=== PATIENT | male | born 1950 | race Caucasian/White ===

== ENCOUNTER → 2023-09-25 10:50 | Outpatient (REF) | payer OTHER, SELFPAY | LOC: PAVMRI 10:50 | PROVIDERS: ATTENDING PHYSICIAN Physical Medicine & Rehabilitation; FAMILY PHYSICIAN Nurse Practitioner | DX: M48.061 Spinal stenosis, lumbar region without neurogenic claudication (principal); Z98.890 Other specified postprocedural states; M51.26 Other intervertebral disc displacement, lumbar region | CPT/HCPCS: 72148 ==

== ENCOUNTER → 2023-11-06 15:48 | Outpatient (REF) | payer OTHER, SELFPAY | LOC: WDC 15:48 | PROVIDERS: ATTENDING PHYSICIAN Internal Medicine Hematology & Oncology; FAMILY PHYSICIAN Nurse Practitioner | DX: Z12.31 Encounter for screening mammogram for malignant neoplasm of breast (principal) | CPT/HCPCS: 77063; 77067 ==

== ENCOUNTER → 2023-12-11 06:39 | Outpatient (REF) | payer OTHER, SELFPAY ==
[2023-12-11 09:04] LABS: ALT (SGPT) 12 U/L (0-50); AST (SGOT) 20 U/L (17-59); Albumin 4.1 g/dl (3.5-5.0); Alkaline Phosphatase 101 U/L (38-126); Blood Urea Nitrogen 14 mg/dl (9-20); Calcium 9.3 mg/dl (8.4-10.2); Carbon Dioxide 27 mmol/L (22-30); Chloride 107 mmol/L (98-107); Glucose 110 mg/dl (70-99); HDL Cholesterol 41 mg/dl; LDL Cholesterol, Calculated 97 mg/dl; Phosphorus 3.6 mg/dl (2.5-4.5); Potassium 4.5 mmol/L (3.5-5.1); Sodium 138 mmol/L (135-145); Total Bilirubin 1.1 mg/dl (0.2-1.3); Total Cholesterol 159 mg/dl (50-199); Total Protein 6.9 g/dl (6.3-8.2); Triglyceride 108 mg/dl (10-149); Very Low Density Lipoprotein 21 mg/dl (0-30); eGFR > 60.00
[2023-12-11 09:41] LABS: TSH Reflex To Free T4 0.21 uIU/ml (0.47-4.68)
[2023-12-11 10:56] LABS: Free T4 1.51 ng/dl (0.78-2.19)
[2023-12-12 08:42] LABS: Intact PTH 106.2 pg/ml (13.6-85.8)
== END ==
LOC: REG 06:39
PROVIDERS: ATTENDING PHYSICIAN Specialist; FAMILY PHYSICIAN Nurse Practitioner
DX: Z00.01 Encounter for general adult medical examination with abnormal findings (principal); I10 Essential (primary) hypertension; I65.23 Occlusion and stenosis of bilateral carotid arteries; N40.0 Benign prostatic hyperplasia without lower urinary tract symptoms; N18.32 Chronic kidney disease, stage 3b; N25.81 Secondary hyperparathyroidism of renal origin
CPT/HCPCS: 36415; 80053; 80061; 83970; 84100; 84439; 84443; G0103

== ENCOUNTER → 2024-02-06 07:34 | Outpatient (REF) | payer OTHER, SELFPAY | LOC: RAD 07:34 | PROVIDERS: ATTENDING PHYSICIAN Nurse Practitioner | DX: I65.23 Occlusion and stenosis of bilateral carotid arteries (principal) | CPT/HCPCS: 93880 ==

== ENCOUNTER → 2024-04-12 09:58 | Outpatient (REF) | payer OTHER, SELFPAY | LOC: HWRCS 09:58 | PROVIDERS: ATTENDING PHYSICIAN Nurse Practitioner | DX: R60.0 Localized edema (principal) | CPT/HCPCS: 93306 ==

== ENCOUNTER 2024-05-27 22:09 | Inpatient (IN) | payer OTHER, MEDICARE, SELFPAY ==
[2024-05-27] VITALS (35 sets, daily range): BP systolic 144–244; BP diastolic 70–208
--- NOTE | 2024-05-27 16:33 | ED.GENMED ---
ED Provider Triage
<Rakesh Niño PA-C - Last Filed: 05/27/24 17:05>
-
Patient seen by provider in Triage?: Seen in Triage
73-year-old male with history of hypertension presents with who states sometimes during the evening last night the patient started to be confused. He was walking around the house not knowing what he was doing. He was unaware of the day of the
week which he is typically very sharp. The noted no slurred speech or droop. He has not had his blood pressure medication today
On brief exam there is no facial droop or slurred speech. He is ambulatory. He is noted to be hypertensive at triage with blood 230s over 140s. CT of the head EKG and labs ordered as well as urinalysis. Requested him to be seen next given
confusion and elevated BP.
update: I was asked to go into the bathroom with the patient was sent to give a urine sample. He was standing there for 15 minutes. I realized there was already urine in the toilet and he was still holding the cup in his hand. He seemed
confused. Requested again for the patient to be placed in room.
History of Present Illness
<Rakesh Niño PA-C - Last Filed: 05/27/24 17:05>
General
Chief Complaint: Change in Mental Status
Time Seen by Provider: 05/27/24 17:41
<Deshaun London MD - Last Filed: 05/27/24 20:13>
General
Source: patient and spouse
Exam Limitations: none
Nursing documentation reviewed up to this point in time: agreed with
History of Present Illness
History of Present Illness:
73-year-old male with a past medical history of hypertension, GERD, chronic low back pain who presents to the emergency department with his for evaluation of confusion. Patient is confused on arrival and somewhat limited as a historian�when
asked why he is here he was not able to tell me, said 'I do not know.' His says that for at least the past 24 hours he has been 'more lethargic.' She says that yesterday evening in particular seems to be moving slowly and was confused about a
few things. This morning patient was still a bit sluggish, was complaining of nausea and had episode of vomiting. Confusion seem to be a bit better, offered to take him to the hospital but he initially declined. As the day went on she
noticed that he became increasingly confused particular at around 3 PM when he seemed to be wandering around the house, was confused about the day of the week. She brought him to the emergency room to be assessed. He was noted to be hypertensive
in triage, did not take his normal blood pressure medicine this morning. When asked about why he is here patient could not tell me but when specifically asked on review of systems he denies any headache, neck pain. Denies any chest pain. He does
complain of some nausea and mild abdominal discomfort. Did have an episode of vomiting this morning as above. No diarrhea. No urinary symptoms reported. Denies feeling focal weak or numb but does complain of feeling generalized weakness. Denies
any loss of vision. He does says that he feels like he is having some trouble speaking.
Past History
<Rakesh Niño PA-C - Last Filed: 05/27/24 17:05>
Past History
ED Past Medical History: Cancer (Left breast cancer), GERD, HTN, Other (Sigmoid diverticulitis March 2022; chronic low back pain/lumbar DDD, narcotic dependent) and Other (BPH; prior history of pain med addiction)
ED Past Surgical History: Cholecystectomy, Orthopedic, Urological (TURP December 2019) and Other (Mastectomy-left)
Social History
Tobacco: Former smoker
Alcohol: None
Drug: Former user
Personal:
Living: with family
Employment: Retired
Family History
Family History: Other (Noncontributory)
Review of Systems
<Deshaun London MD - Last Filed: 05/27/24 20:13>
Review of Systems
All Other Systems: ROS reviewed and negative except as documented in HPI and ROS
Constitutional: Denies fever
Respiratory: Denies trouble breathing
Cardiac: Denies chest pain
ABD/GI: Reports abdominal pain, nausea and vomiting; Denies diarrhea
: Denies dysuria or flank pain
Musculoskeletal: Reports back pain (Chronic); Denies neck pain
Neurological: Reports other (Confused; speech difficulties); Denies dizzy or headache
Phy Exam
<Deshaun London MD - Last Filed: 05/27/24 20:13>
Physical Exam
Physical Exam:
General: Sitting in bed awake and alert, oriented to person and place but not time or situation
Head: Normocephalic, atraumatic
Eyes: Conjunctiva normal, EOMI, pupils equal round and reactive to light bilaterally, visual vicente are intact
Throat: Airway intact, handling secretions
Neck: Trachea midline, supple without meningismus
Lungs: Clear to auscultation bilaterally, no wheezing, rales, rhonchi
Heart: Regular rate and rhythm, no murmurs, gallops, or rubs
Abd: Soft, non distended, very mild diffuse tenderness no peritoneal signs or masses
Neuro: Cranial nerves intact 2 through 12, speech fluid no dysarthria, no expressive aphasia, motor and sensory function intact and symmetric upper and lower extremities
Skin: no rash
Extremities: No edema in extremities, equal pulses in all extremities
Scores
<Deshaun London MD - Last Filed: 05/27/24 20:13>
NIH Stroke Score
Level of Consciousness: 0 - Alert
LOC Questions: 1-Answers one correctly
LOC Commands: 0-Performs both correctly
Best Horizontal Gaze: 0-Normal
Visual Vicente: 0=Normal, no visual loss
Facial Palsy: 0=Normal, symmetrical
Motor - Right Arm: 0=No drift 10 seconds
Motor - Left Arm: 0=No drift 10 seconds
Motor - Right Le-No drift 5 seconds
Motor - Left Le-No drift 5 seconds
Limb Ataxia: 0-Absent
Sensation: 0-Normal
Best Language: 0-No aphasia
Dysarthria: 0-Normal
Extinction and Inattention: 0-No abnormality
Total Score:: 1
Thrombolytic Contraindication
Inclusion and Exclusion criteria reviewed: Yes
Reasons for NON-Tx with Thrombolytics ABSOLUTE Exclusions: Greater than 4.5 hrs from onset of sxs
Heart Failure Risk
Heart Failure Risk Score: Not Applicable
Heart Score for Chest Pain Patients
STEMI patient?: Not applicable
Withdrawal Assessment of Alcohol
Withdrawal Assessment Completed?: Not applicable
Course
<Rakesh Niño PA-C - Last Filed: 05/27/24 17:05>
Orders/Labs/Results
Orders:
Orders
05/27/24 16:30
Electrocardiogram (*1) Urgent
Reason for Study: TIA/Stroke
CT HEAD STROKE ALERT W/o Cont Urgent
Reason For Exam: elevated BP, confusion
EKG- Treatment ONCE
05/27/24 17:36
Complete Blood Count/With Diff Urgent
Comprehensive Metabolic Panel Urgent
05/27/24 17:51
CT Abd/pelvis Wo Iv Cont Urgent
Reason For Exam: abd pain, confused, N/V
05/27/24 17:52
Labetalol HCl [Trandate] 10 mg IV NOW STA
05/27/24 19:17
Aspirin 325 mg PO NOW STA
Labetalol HCl [Trandate] 10 mg IV NOW STA
05/27/24 19:49
Urinalysis Reflex To Culture Urgent
Date Specimen was Collected: 05/27/24
Time Specimen was Collected: 16:36
05/27/24 20:10
Nicardipine INF (STD CONC-40 mg/200 mL) NOW x 1 BAG Nicardipine 40 mg/200 ml [Cardene] 40 mg in 200 ml IV NOW
Initial dose in mg/hr, then titrate:: 5
Titrate to keep:: SBP 140 - 160 mmHg
Titrate by mg/hr:: 2.5 mg/hr
Frequency of titrations (minutes):: 5-15 minutes
Maximum dose in mg/hr:: 15
Begin to taper infusion when:: Remained at goal for 2hrs
Taper by mg/hr:: 2.5 mg/hr
Frequency of taper (minutes) if patient maintains goal:: 15-30 minutes
Taper to off?: Yes
If infusion off & no longer maintaining goal:: Contact Provider
Abnormal Lab Results
05/27/24 05/27/24
17:33 17:36
MCH 31.9 H pg
(27.0-31.0)
Absolute Lymphs (auto) 0.8 L 10^3/uL
(1.2-3.4)
Absolute Monos (auto) 0.7 H 10^3/uL
(0.1-0.6)
Lymphocytes % 12.8 L %
(20.5-51.1)
Monocytes % 11.3 H %
(1.7-9.3)
Glucose 109 H mg/dl
(70-99)
Total Bilirubin 2.8 H mg/dl
(0.2-1.3)
POC Glucose 111 H mg/dl
(70-99)
05/27/24 17:36
05/27/24 17:36
Vital Signs
Initial and Last Documented VS:
Initial Vital Signs
Temp Pulse Resp BP Pulse Ox
36.6 C 98 16 244/136 97
05/27/24 16:27 05/27/24 16:27 05/27/24 16:27 05/27/24 16:27 05/27/24 16:27
Last Documented Vital Signs
Temp Pulse Resp BP Pulse Ox
36.6 C 85 18 151/70 97
05/27/24 16:27 05/27/24 19:34 05/27/24 19:34 05/27/24 19:34 05/27/24 19:34
<Deshaun London MD - Last Filed: 05/27/24 20:13>
Orders/Labs/Results
Orders:
Orders
05/27/24 16:30
Electrocardiogram (*1) Urgent
Reason for Study: TIA/Stroke
CT HEAD STROKE ALERT W/o Cont Urgent
Reason For Exam: elevated BP, confusion
EKG- Treatment ONCE
05/27/24 17:36
Complete Blood Count/With Diff Urgent
Comprehensive Metabolic Panel Urgent
05/27/24 17:51
CT Abd/pelvis Wo Iv Cont Urgent
Reason For Exam: abd pain, confused, N/V
05/27/24 17:52
Labetalol HCl [Trandate] 10 mg IV NOW STA
05/27/24 19:17
Aspirin 325 mg PO NOW STA
Labetalol HCl [Trandate] 10 mg IV NOW STA
05/27/24 19:49
Urinalysis Reflex To Culture Urgent
Date Specimen was Collected: 05/27/24
Time Specimen was Collected: 16:36
05/27/24 20:10
Nicardipine INF (STD CONC-40 mg/200 mL) NOW x 1 BAG Nicardipine 40 mg/200 ml [Cardene] 40 mg in 200 ml IV NOW
Initial dose in mg/hr, then titrate:: 5
Titrate to keep:: SBP 140 - 160 mmHg
Titrate by mg/hr:: 2.5 mg/hr
Frequency of titrations (minutes):: 5-15 minutes
Maximum dose in mg/hr:: 15
Begin to taper infusion when:: Remained at goal for 2hrs
Taper by mg/hr:: 2.5 mg/hr
Frequency of taper (minutes) if patient maintains goal:: 15-30 minutes
Taper to off?: Yes
If infusion off & no longer maintaining goal:: Contact Provider
Abnormal Lab Results
05/27/24 05/27/24
17:33 17:36
MCH 31.9 H pg
(27.0-31.0)
Absolute Lymphs (auto) 0.8 L 10^3/uL
(1.2-3.4)
Absolute Monos (auto) 0.7 H 10^3/uL
(0.1-0.6)
Lymphocytes % 12.8 L %
(20.5-51.1)
Monocytes % 11.3 H %
(1.7-9.3)
Glucose 109 H mg/dl
(70-99)
Total Bilirubin 2.8 H mg/dl
(0.2-1.3)
POC Glucose 111 H mg/dl
(70-99)
05/27/24 17:36
05/27/24 17:36
Vital Signs
Initial and Last Documented VS:
Initial Vital Signs
Temp Pulse Resp BP Pulse Ox
36.6 C 98 16 244/136 97
05/27/24 16:27 05/27/24 16:27 05/27/24 16:27 05/27/24 16:27 05/27/24 16:27
Last Documented Vital Signs
Temp Pulse Resp BP Pulse Ox
36.6 C 85 18 151/70 97
05/27/24 16:27 05/27/24 19:34 05/27/24 19:34 05/27/24 19:34 05/27/24 19:34
<Deshaun London MD - Last Filed: 05/27/24 20:13>
MDM/Problems Addressed
Differential Diagnosis Includes:
Stroke (ischemic/hemorrhagic), hypertensive crisis, brain mass, TME related to infection such as pneumonia or intra-abdominal infection or UTI
MDM/Problems Addressed:
73-year-old male presents to the emergency room for evaluation of lethargy and nausea over the past 24 hours and increasing confusion became significantly worse around 3 PM today. Hypertensive but otherwise normal vitals. Physical exam as above.
During my initial assessment I did call a stroke alert, patient to be taken for CT head. Will also send for CT abdomen pelvis. Labs sent off in triage including a CBC and a CMP�CBC shows no clinically significant abnormalities, CMP shows elevated
T. bili but normal LFTs otherwise. Urinalysis is pending. Check an EKG. Provide labetalol for severe hypertension.
CT reviewed by me in real-time no hemorrhage noted. Case discussed with neurology at bedside�suspect this could be hypertensive encephalopathy, lower suspicion for stroke. Recommended treating with aspirin, no TNK. Will obviously require
admission. Will continue to monitor pending rest of workup to evaluate for alternate etiology such as infection.
CT abdomen pelvis negative for any acute pathology. Urinalysis pending but no urinary symptoms, fever, leukocytosis suggest that this is the etiology of his confusion. At this point suspect small subacute stroke versus hypertensive crisis. Blood
pressure still elevated will repeat labetalol.
Blood pressure not improving after second labetalol push. Will start on Cardene infusion. Case discussed with hospitalist for admission.
Chronic conditions affecting care:
Hypertension
Acute Exacerbation and/or Progression of Chronic Illness:
Acutely hypertensive treated with labetalol
Acute Exacerbation and/or Progression of Chronic Illness: HTN
<Deshaun London MD - Last Filed: 05/27/24 20:13>
*Radiology
Radiology exam reviewed: preliminary read by ED provider and radiology read reviewed
*Pulse Oximetry
Patient hypoxic: no
*EKG
Interpreted by ED Provider?: Yes
Heart Rate: 84
Rate: normal
Rhythm: sinus and PAC's
[place]: normal axis
Interval: normal interval
QRS Pattern: normal QRS
Ischemia: no ischemia
*Critical Care Note
Total Time (30-74mins, 75-104mins- exclusive of procedures): 35
comment:
Critical care statement: A total of 35 minutes of critical care time was provided for this patient. This includes management of unstable vital signs, evaluation of the patient at bedside, frequent reassessment, discussion with
consultants/hospitalist, and review of pertinent medical records. This time was separate from time utilized to perform any aforementioned documented procedures
Data Reviewed
Review of Other/Old Records Reveals: Labs and Records
Source: patient and spouse
<Deshaun London MD - Last Filed: 05/27/24 20:13>
Patient Management
Discussion with other providers: Hospitalist (Discussed with hospitalist), Chief Engineer Waterworks (Discussed with neurologist) and Radiologist (Discussed with radiology)
Escalation/DeEscalation of care consider admission/obs:
Admission indicated
ED Attending Note
<Rakesh Niño PA-C - Last Filed: 05/27/24 17:05>
-
Portions of this chart may have been created with voice recognition software.� Occasional wrong word or��sound alike� substitutions may have occurred due to the inherent limitations of voice recognition software.
Discharge Plan
Departure
Patient Disposition: Admit
Date of Disposition: 05/27/24
Time of Disposition: 20:13
Admit to doctor: Vanna
Presentation/result/management discussed w/ accepting MD/DO: Hospitalist
Discharge Problem:
CVA (cerebrovascular accident), Hypertensive crisis
Prescriptions:
No Action
amlodipine 10 MG tablet
10 mg PO DAILY Qty: 1 0RF
Rx Instructions:
Hold if systolic blood pressure <130 while on Valium and Dilaudid.
terazosin 5 mg capsule
5 mg PO HS
valsartan 320 mg tablet
320 mg PO DAILY
calcitriol 0.25 mcg capsule
0.25 mcg PO .3X WEEKLY
buprenorphine 15 mcg/hour patch weekly
15 mcg topical WE
gabapentin 300 MG capsule
300 mg PO TIDPRN PRN (Reason: neuropathy)
omeprazole 20 MG capsule,delayed release(DR/EC)
20 mg PO DAILYPRN PRN (Reason: gi upset)
Referrals:
Peter Carr CRNP [Family Provider] -
Interventions
Interventions:
*Risk Screen - Suicide Last Done: 05/27/24 16:29
*General Assessment Last Done: 05/27/24 16:29
*Neglect/Abuse Screening Last Done: 05/27/24 16:29
*ED COVID-19 Vaccine History Last Done: 05/27/24 16:29
ED- Neurological Assessment Last Done: 05/27/24 17:28
Discharge Date and Time
Print Language: INDONESIAN
[2024-05-27 17:35] LABS: Glucose - Point of Care 111 mg/dl (70-99)
[2024-05-27 17:46] LABS: % Basophils 0.3 % (0-2); % Eosinophils 0.8 % (0-6); % Immature Granulocytes 0.3 % (0-0.5); % Lymphocytes 12.8 % (20.5-51.1); % Monocytes 11.3 % (1.7-9.3); % Neutrophils 74.5 % (42.2-75.2); Absolute Eosinophils 0.1 10^3/uL (0-0.7); Absolute Lymphocytes 0.8 10^3/uL (1.2-3.4); Absolute Monocytes 0.7 10^3/uL (0.1-0.6); Absolute Neutrophils 4.9 10^3/uL (1.4-6.5); Hematocrit 42.7 % (39.0-52.0); Hemoglobin 15.4 g/dL (13.0-18.0); Mean Corp Hgb Conc. 36.1 g/dL (33.0-37.0); Mean Corpuscular Hgb 31.9 pg (27.0-31.0); Mean Corpuscular Volume 88.4 fL (80.0-94.0); Mean Platelet Volume 9.2 fL (7.4-10.4); Nucleated Red Blood Cells % 0 % (-); Platelet Count 208 10^3/uL (130-400); Red Blood Cell Count 4.83 10^6/uL (4.70-6.10); Red Cell Dist. Width 12.8 % (11.5-14.5); White Blood Cell Count 6.6 10^3/uL (4.8-10.8)
[2024-05-27 18:01] LABS: ALT (SGPT) 22 U/L (0-50); AST (SGOT) 28 U/L (17-59); Albumin 4.9 g/dl (3.5-5.0); Alkaline Phosphatase 99 U/L (38-126); Blood Urea Nitrogen 17 mg/dl (9-20); Calcium 9.7 mg/dl (8.4-10.2); Carbon Dioxide 25 mmol/L (22-30); Chloride 99 mmol/L (98-107); Glucose 109 mg/dl (70-99); Potassium 4.3 mmol/L (3.5-5.1); Sodium 138 mmol/L (135-145); Total Bilirubin 2.8 mg/dl (0.2-1.3); Total Protein 7.8 g/dl (6.3-8.2); eGFR > 60.00
[2024-05-27] MEDS: TRANDATE 10 MG IV ×2 (18:18→19:28)
[2024-05-27] MEDS: ASPIRIN 325 MG PO (19:28)
[2024-05-27] MEDS: CARDENE 200 IV (20:31)
--- NOTE | 2024-05-27 21:15 | HPS.HSE ---
Family Physician
-
Family Physician: SAÚL Hogan
Chief Complaint
-
AMS per and hi BP
History of Present Illness
HPI:
73M Morbidly Obese HX HTN on Amlodipine, valsartan seen at ER
- per sometimes during the evening last night the patient started to be confused.
- He was walking around the house not knowing what he was doing.
- He was unaware of the day of the week which he is typically very sharp.
- The noted no slurred speech or droop.
- He has not had his blood pressure medication today
- He is ambulatory at ER
Noted to be hypertensive at triage with blood 230s over 140s.
@ ER
Received ASA
IV labetolol 10mg x2
Nicardipine gtt
Medical History
Past Medical History
Past Medical History: Reports Cancer (Breast cancer 2014, status post left mastectomy.), HTN and Other
Additional Past Medical History:
Osteoarthritis, status post right total knee arthroplasty January 2020, Dr. Clark.
Obesity, BMI 34.0.
BPH status post TURP with residual urinary retention.
Adams's esophagus.
Gastroesophageal reflux disease.
History of opioid dependence.
Fatty liver.
History of hepatitis B.
Vitamin d deficiency.
Sigmoid diverticulitis March 2022
HX chronic low back pain/lumbar DDD, narcotic dependent)
Past Surgical History: Reports Orthopedic (status post right total knee arthroplasty January 2020, Dr. Clark.), Urological (BPH status post TURP with residual urinary retention.) and Other (Breast cancer 2014, status post left mastectomy.)
Social History
Tobacco: Former Smoker
Alcohol: None
Drug: Former User
Personal:
Living: With Family
Family History
Family History: Not pertinent
Allergies / Home Medications
Allergies reflects when Allergies were last updated in [facility].
Home Medications with original date entered in [facility]
Allergy/Medication List:
Allergies
Allergy/AdvReac Type Severity Reaction Status Date / Time
codeine Allergy Itching Verified 05/27/24 17:17
ibuprofen Allergy stomach Verified 05/27/24 17:17
pain
narcotics Allergy Patient in Uncoded 05/27/24 17:17
recovery
Home Medications
amlodipine 10 mg tablet 10 mg PO DAILY #1 tab 02/19/21
buprenorphine 15 mcg/hour weekly transdermal patch 15 mcg topical WE 05/27/24
calcitriol 0.25 mcg capsule 0.25 mcg PO .3X WEEKLY 05/27/24
gabapentin 300 mg capsule 300 mg PO TIDPRN PRN neuropathy 05/27/24
omeprazole 20 mg capsule,delayed release 20 mg PO DAILYPRN PRN gi upset 05/27/24
terazosin 5 mg capsule 5 mg PO HS 05/27/24
valsartan 320 mg tablet 320 mg PO DAILY 05/27/24
Review of Systems
-
Constitutional: Reports No Symptoms
EENT: Reports No Symptoms
Respiratory: Reports No Symptoms
Abdomen/GI: Reports No Symptoms
: Reports No Symptoms
Musculoskeletal: Reports No Symptoms
Skin: Reports No Symptoms
Endocrine: Reports No Symptoms
Hematologic/Lymphatic: Reports No Symptoms
Psych: Reports No Symptoms
Physical Exam
Vital Signs
Vital Signs
Temp Pulse Resp BP Pulse Ox
98 F 82 13 203/119 97
05/27/24 16:27 05/27/24 20:30 05/27/24 20:30 05/27/24 20:00 05/27/24 19:34
Physical Exam
General: Well Developed, Well Nourished and No Apparent Distress
HEENT: NormoCephalic, Moist mucous membranes and Atraumatic
Respiratory: Clear
Cardiac: S1/S2 and Regular Rhythm; No Murmur or Rub
GI: Soft, Non Tender, Non Distended and Normal Bowel Sounds; No Organomegaly
Rectal: Deferred by Provider
Musculoskeletal: No Clubbing, No Cyanosis and No Edema
Skin: No Rash
Neuro: Nonfocal/grossly intact
Laboratory Results
-
05/27/24 17:36
05/27/24 17:36
Laboratory Results
Total Bilirubin 2.8 mg/dl (0.2-1.3) H 05/27/24 17:36
AST 28 U/L (17-59) 05/27/24 17:36
ALT 22 U/L (0-50) 05/27/24 17:36
Alkaline Phosphatase 99 U/L (38-126) 05/27/24 17:36
Data Reviewed
-
CT Scan: Report Reviewed by me
Medical Tests (Nuc Med, Echo, EKG etc): Report Reviewed by me
Lab Data: Labs Reviewed by me
Old Records: Reviewed
Impression/Plan
-
Reviewed VS: afebrile BP 205/120 HR 82 RR 13 POx 97
NIH
Level of Consciousness: 0 - Alert
LOC Questions: 1-Answers one correctly
LOC Commands: 0-Performs both correctly
Best Horizontal Gaze: 0-Normal
Visual Vicente: 0=Normal, no visual loss
Facial Palsy: 0=Normal, symmetrical
Motor - Right Arm: 0=No drift 10 seconds
Motor - Left Arm: 0=No drift 10 seconds
Motor - Right Le-No drift 5 seconds
Motor - Left Le-No drift 5 seconds
Limb Ataxia: 0-Absent
Sensation: 0-Normal
Best Language: 0-No aphasia
Dysarthria: 0-Normal
Extinction and Inattention: 0-No abnormality
Total Score:: 1
HCT:
No acute pathology
Moderate periventricular small vessel ischemic disease.
CT Abd/pelvis Wo Iv Cont
No acute pathology of the abdomen or pelvis identified.
Findings consistent with prior benign granulomatous disease. Stable
Pancreatic fatty infiltration. Progressed
Prior cholecystectomy. Stable
Severe left renal atrophy. This can be seen with renal artery stenosis. Stable
Moderate diverticulosis. Stable
No prior hospitalist admission:
ASSESSMENT & PLAN
AMS with slow cognitive speed associated with uncontrol HTN : Probably HTN encephalopathy a due to HTN emergency
NIH only 1
NEG HCT for acute pathology
Not TNK candidate
Neuro saw him as CVA alert
- s/p Received ASA
- IV labetalol 10mg x2
- Nicardipine gtt
- ICU consult
[facility] HTN with HTN emergency
-c/w LOOPER OPERATOR Meds : Amlodipine and valsartan
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
Obesity, BMI 34.0.
HX BPH status post TURP with residual urinary retention : on Terazosin
GERD, Adams's esophagu: Omeprazole
Prior HX opioid dependence.
HX Breast cancer 2014, status post left mastectomy.
HX Fatty liver.
HX hepatitis B.
HX .Vitamin d deficiency.
HX Sigmoid diverticulitis March 2022; chronic low back pain/lumbar DDD, narcotic dependent)
DVT Px: SQH
Code: Full code
ICU
Total Critical Care Time___65__ minutes.
I was immediately available to the patient and staff. I personally examined, reviewed labs, diagnostic images/reports, interpretations, treatment plans, discussed patient care with other providers and family or caregivers (if patient is unable to
make decisions), entered orders as appropriate and documented the medical record.
--- NOTE | 2024-05-27 22:41 | PTCARENOTE ---
Patient arrived to ICU on cardene gtt maxed out, IV infiltrated. IV team notified, cardene restarted at 2.5 mg/hr.
[2024-05-27] MEDS: HYTRIN 5 MG PO (23:32)
[2024-05-27 23:52] LABS: INR 1.41
[2024-05-27 23:53] LABS: APTT 35.2 Sec (23.4-35.0)
[2024-05-28] VITALS (61 sets, daily range): BP systolic 101–173; BP diastolic 57–114; PULSE 78–85; BMI 33.1
--- NOTE | 2024-05-28 00:47 | PTCARENOTE ---
Patient oriented to self, mildly aphasic, NIH 3 for aphasia and inability to answer questions correctly, POT BUILDER aware. Q2 hour neuro checks ongoing, confused conversation, bed alarm on. Normal sinus 80s-90s, normothermic. Cardene gtt titrated to
maintain SBP 160, currently off. 95% on room air, lung sounds clear. Abdomen soft, round, obese, hypoactive bowel sounds. Voiding in urinal, yellow urine. YONI topical buprenorphine patch removed per POT BUILDER. Right hand 24 inserted by IV team, right arm
18 ultra sound guided. Call nichols within reach, hourly rounding and patient safety checks ongoing.
--- NOTE | 2024-05-28 01:40 | VATNOTE ---
05/28 0135
Was called by PCN about an infiltrated IV in patient right AC. Patient with swelling and pain to right forarm and AC. Unsure when exactly this happened, patient arrived to the ICU with line infiltrated. ICU placed an US guided line in right upper
arm and this IV nurse placed a 22 in patients right hand (done at 2340 on 05/27 - was paged to a rapid response). Returned at this time to re-evaluate patients arm. Patient still with swelling and pain. Arm elevated on a pillow and warmth
applied to arm. PCN aware and will continue to monitor patients arm.
[2024-05-28] MEDS: ZOFRAN 4 MG IV (03:50)
--- NOTE | 2024-05-28 03:51 | PTCARENOTE ---
Patient nauseous and gagging, ORDER MANAGER notified, zofran given. Cardene off since 0000. Otherwise patient assessment unchanged from previous.
[2024-05-28 04:20] LABS: Hematocrit 38.7 % (39.0-52.0); Mean Corp Hgb Conc. 36.2 g/dL (33.0-37.0); Mean Corpuscular Hgb 31.9 pg (27.0-31.0); Mean Corpuscular Volume 88.2 fL (80.0-94.0); Mean Platelet Volume 9.6 fL (7.4-10.4); Platelet Count 196 10^3/uL (130-400); Red Blood Cell Count 4.39 10^6/uL (4.70-6.10); Red Cell Dist. Width 12.8 % (11.5-14.5); White Blood Cell Count 7.7 10^3/uL (4.8-10.8)
[2024-05-28 04:38] LABS: Blood Urea Nitrogen 21 mg/dl (9-20); Calcium 9.1 mg/dl (8.4-10.2); Carbon Dioxide 20 mmol/L (22-30); Chloride 103 mmol/L (98-107); Estimated Creatinine Clearance 62 ml/min; Glucose 134 mg/dl (70-99); Sodium 139 mmol/L (135-145); eGFR > 60.00
--- NOTE | 2024-05-28 06:39 | PTCARENOTE ---
NIH 15, PHYSICAL THERAPIST CENTER MANAGER notified, patient taken to stat head CT.
[2024-05-28] MEDS: KEPPRA 1000 MG IV (06:52)
--- NOTE | 2024-05-28 07:31 | W.PN.HOSP.TC ---
Addendum entered and electronically signed by Loc Saucedo MD 05/28/24 10:46:
I saw and evaluated the patient. I reviewed the resident�s note and agree with findings and plan as documented in the resident�s note.
Patient with expressive aphasia.
Gen: NAD, Awake and alert, NCAT
Eyes: EOMI, PERRLA, no scleral icterus.
Neck: supple.
CV: RRR, +S1/S2, no m/r/g.
Resp: CTAB, no rales, wheezes, or rhonchi.
Abd: +BS, soft, NT, ND
Skin: No rashes.
Neuro: Patient with expressive aphasia. When asked his name he is able to state his name but then is unable to state where he is or what year it is. He is also unable to follow directions. He does move all 4 extremities spontaneously. CN 2-12
intact on this limited exam
Psych: calm
Expressive aphasia:
-Current concern is for acute CVA
-Presented with acute encephalopathy and hypertensive emergency. Acute encephalopathy likely due to acute hypertensive encephalopathy as well as possible acute CVA.
-Was on nicardipine drip, now off
-neurology following
-check MRI brain
-start statin
-cont Plavix
-Continue home antihypertensive medications with close attention to blood pressure trend
Obesity due to excess calories
Case discussed with neuro and riveter. RN updated. Downgrade to IMU.
Total time spent on today's encounter was 50 minutes which included time spent in counseling the patient/family regarding diagnosis and treatment plan as listed above, goals of care, and symptom management. Case was discussed with nursing staff,
specialists, and care coordinators/case management. All labs and imaging personally reviewed by me. Remainder the time spent in detailed review of previous records, lab data, imaging, and other medical provider documentation.
Original Note:
Today's Communication/Plan
-
-MRI Pending
-Follow up with Neurology
-ST
Assessment / Plan
Assessment / Plan
Impression: The patient is a 73year old right handed male who presented to ER complaining from confusion and difficulty with word finding . He has a PMH history of uncontrolled hypertension, Osteoarthritis, BPH status post TURP, Adams's
esophagus, Gastroesophageal reflux disease, Hypertension, opioid dependence, Breast cancer 2015 status post left mastectomy on tamoxifen, Fatty liver, hepatitis B, chronic renal insufficiency obesity. The patient was in his usual state of health
till yesterday. Per his report, he was little more lethargic and confused on 05/27 morning. He had difficulty with word finding.His BP was found elevated at 260/140 when he presented to ER yesterday afternoon. He was admitted and was
consulted to Neurology.
On 05/28 morning, I saw patient in his bed and he did not apply 2 words commands. His PE exam was limited due his mental status and aphasia and confusion. He had difficulty to understand the questions and he was not able to reply. He replied as
'yes' to my most of questions. He was ordered Head CT this morning again and ordered Brain MRI.
Assessment/Plan
#HTN encephalopathy vs CVA
-The patient received (IV labetalol 10mg x2, Nicardipine gtt at admission )
-BP trending down on current treatment
-Continue nicardipine with parameters SBP>120/90
#Expressive Aphasia
-Neuro saw him as CVA alert: Not TNK candidate
-Will discuss the patient again
-Started on Plavix 75v and ASA
-Head CT repeated on 05/28: No CT evidence for acute intracranial hemorrhage or transcortical infarct. Small chronic periventricular infarct in the left frontal lobe adjacent to the frontal horn of the left lateral ventricle (involving the left
caudate nucleus) with associated mild volume loss and encephalomalacia. SEVERE WHITE MATTER LEUKOARAIOSIS in both cerebral hemispheres.
-MRI head pending
-ST will asses the patient
#GERD, Adams's esophagus:
- Omeprazole
HX Sigmoid diverticulitis March 2022
-Abd CT: on 05/27: No acute pathology of the abdomen or pelvis identified. Findings consistent with prior benign granulomatous disease. Stable Pancreatic fatty infiltration. Progressed /Prior cholecystectomy. Stable/ Severe left renal atrophy. This
can be seen with renal artery stenosis. Stable/Moderate diverticulosis. Stable
#Chronic low back pain/lumbar DDD, narcotic dependent)
-Bup patch
#HX BPH status post TURP with residual urinary retention
- on Terazosin
#Prior HX opioid dependence.
#HX Breast cancer 2015, status post left mastectomy.
#HX Fatty liver.
#HX hepatitis B.
#HX .Vitamin d deficiency.
Anticipated Discharge: 24 - 48 hours
Subjective/Interval History
-
Date of Service: May 28, 2024
The patient was seen in his bed. He was not verbal and seems confused. He replied all of the questions like 'yes' and replied his age as 21. He did not apply 2 words commands. During PE he denied pain and m did not have any fascial expression
related pain.
Objective Data
-
Labs:
Laboratory Results
05/27/24 05/28/24
23:30 03:56
WBC 7.7
Hgb 14.0
Hct 38.7 L
Plt Count 196
PT 17.0 H
INR 1.41
APTT 35.2 H
Sodium 139
Potassium 4.0
Chloride 103
Carbon Dioxide 20 L
BUN 21 H
Creatinine 1.2
Glucose 134 H
Calcium 9.1
Vital Signs:
Vital Signs
Temp Pulse Resp BP Pulse Ox
98.2 F 85 14 159/67 92
05/28/24 03:33 05/28/24 04:20 05/28/24 04:20 05/28/24 04:20 05/28/24 04:20
I&O
05/27/24 05/28/24 05/29/24
06:59 06:59 06:59
Intake Total 12.5 / 12.5
Output Total 250 / 250
Balance -237.5 / -237.5
Review of Systems
-
Unable to obtain full review of systems at this time due to: Other (Confusion+ Aphasia )
History Source: Records and Other (nursing staff )
EENT: Reports No Symptoms Reported
Respiratory: Reports No Symptoms
Cardiac: Reports No Symptoms
Abdomen/GI: Reports No Symptoms
Genitourinary: Reports No Symptoms
Musculoskeletal: Reports No Symptoms
Skin: Reports Other (See HPI )
Physical Exam
-
General: Well Developed, Well Nourished and Obese
HEENT: Normocephalic and Atraumatic
Respiratory: Clear to Auscultation
Cardiac: Regular Rhythm and S1/S2
GI: Soft and Nontender
Musculoskeletal: No Clubbing, No Cyanosis and No Edema
Skin: Warm
Neuro: Other (Not oriented to his name, place, year, person. )
Psych: Other
--- NOTE | 2024-05-28 07:40 | CON.NEURO4 ---
Consultation - Neurology 4
-
CONSULTING PHYSICIAN: Arnold Schneider MD neurology
REFERRING PHYSICIAN: Hospitalist
DICTATED BY: Arnold Schneider MD
DATE/TIME OF REQUEST: May 27, 2024
DATE/TIME OF CONSULTATION: May 27, 2024
Reason for Consultation: Altered mental status
History of Present Illness:
This is a 73year old right) handed (male who has presented to the hospital with (chief complaint) of confusion and word finding difficulty. He gives a history of uncontrolled hypertension, Osteoarthritis, BPH status post TURP, Adams's
esophagus,. Gastroesophageal reflux disease, Hypertension, opioid dependence, Breast cancer 2015 status post left mastectomy on tamoxifen, Fatty liver, hepatitis B, chronic renal insufficiency obesity who had been in his usual state of health till
yesterday. Has per his he was little more lethargic and confused when he had. Difficulty speaking with word finding issues she brought him to the emergency room at which time his blood pressure was elevated to 260/140.
At the time of my examination he was awake alert oriented to person place speech was limited with word finding difficulty he could follow commands. He had no weakness numbness incoordination
He was started on IV nicardipine
Past Medical History: As above
Surgical History: Left mastectomy tube lumbar laminectomy cholecystectomy right meniscus repair right shoulder arthroscopy
Family History: Noncontributory
Social History: lives at home with remote history of drug use does not smoke
Allergies: Codeine ibuprofen opiates
Home Medications: See addendum
Review of Symptoms:
Patient denies any fever, headache, chest pain, shortness of breath, GI or symptoms.
�Per the HPI.�All systems are reviewed negative except above.
Vital Signs:
The patient has a
Physical Exam:
The patient is afebrile, heart sounds S1 and S2 are (regular , and chest is clear to auscultation bilaterally.
- If not clear, describe.
NIH Stroke Scale (if applicable):
I performed the NIH stroke scale on the patient. The patient scored ( 1) points on the NIH stroke scale assessment, which were assigned as follows: Word finding difficulty
Neurologic Examination:
The patient is awake, alert and oriented x person place. (He is able to follow commands and answer questions appropriately. There is aphasia without dysarthria.
On cranial nerve assessment, pupils are 3 mm bilateral, round and reactive to light and accommodation. Visual escobar are full. Extraocular movements are intact. Facial sensations are intact and bilaterally symmetrical, there is no facial asymmetry.
Hearing is intact bilaterally to normal conversation volume. Tongue palate and uvula are midline. Sternocleidomastoid strengths are full bilaterally.
Motor strengths are 5/5 bilateral upper and lower extremities on medical research Fowler scale. There is no drift or involuntary movement noted.
Deep tendon reflexes are 2+ bilateral upper and lower extremities and Babinski is absent bilaterally. Sensations of pain, touch, temperature and vibration are intact and bilaterally symmetrical. There was no extinction noted on double simultaneous
stimulation. Coordination is intact by finger to nose bilaterally.
Lab Results: Addendum
Neuro Imaging: CT head shows extensive white matter changes left greater than right atrophy with mild ventricular expansion
Impression:
(Mr. TOÑA ORTIZ is a 73 year old M who has presented to the hospital with (symptoms/chief complaint) altered mental status and speech impediment secondary to uncontrolled hypertension.
Differentials for the patient's presentation include:
1. Hypertensive crisis
2. Broca's aphasia
Patient has the following risk factors for their symptoms: Uncontrolled hypertension
IV Tenecteplase/IAT candidacy: Not a candidate for thrombolysis due to fluctuating speech impediment and hypertension
Recommendations:
1. IV Nicardipine
2. Aspirin
3. Serial CAT scans
4. MRI head
5. Echocardiogram
6. Carotid ultrasound
7. Speech therapy
8. Blood pressure management, with systolic of 160-1 80/diastolic 80-95
Discussed patient care with: Emergency room
Allergies
-
Allergies
Allergy/AdvReac Type Severity Reaction Status Date / Time
codeine Allergy Itching Verified 05/27/24 17:17
ibuprofen Allergy stomach Verified 05/27/24 17:17
pain
narcotics Allergy Patient in Uncoded 05/27/24 17:17
recovery
Vital Signs and Labs
-
Vital Signs and Labs:
Vital Signs
Temp Pulse Resp BP Pulse Ox
36.8 C 85 13 159/85 93
05/28/24 03:33 05/28/24 07:30 05/28/24 07:30 05/28/24 07:20 05/28/24 07:30
Lab Results
05/28/24 03:56
05/28/24 03:56
PT 17.0 Sec (11.4-14.6) H 05/27/24 23:30
INR 1.41 05/27/24 23:30
APTT 35.2 Sec (23.4-35.0) H 05/27/24 23:30
Sodium 139 mmol/L (135-145) 05/28/24 03:56
Potassium 4.0 mmol/L (3.5-5.1) 05/28/24 03:56
BUN 21 mg/dl (9-20) H 05/28/24 03:56
Glucose 134 mg/dl (70-99) H 05/28/24 03:56
Calcium 9.1 mg/dl (8.4-10.2) 05/28/24 03:56
Medications
-
Active Medications
Generic Name Dose Route Start Last Admin
Trade Name Freq PRN Reason Stop Dose Admin
Acetaminophen 650 mg 05/27/24 22:27
Acetaminophen 325 Mg Tablet PO 06/24/24 22:26
Q4HPRN PRN
mild pain/BARGER/temp> 100.4F
Amlodipine Besylate 10 mg 05/28/24 08:00
Amlodipine 10 Mg Tablet PO 06/25/24 07:59
DAILY WINDY
Bisacodyl 10 mg 05/27/24 22:27
Bisacodyl 10 Mg Rectal Suppository RECTAL 06/24/24 22:26
[id number] PRN
constipation
Calcitriol 0.25 mcg 05/27/24 22:27
Calcitriol 0.25 Microgram Capsule PO 06/24/24 22:26
.3X WEEKLY WINDY
Gabapentin 300 mg 05/27/24 22:27
Gabapentin 300 Mg Capsule PO 06/24/24 22:26
TIDPRN PRN
neuropathy
Heparin Sodium 5,000 units 05/28/24 08:00
Heparin 5,000 Units/Ml 1 Ml Vial SC 06/25/24 07:59
Q12 WINDY
Nicardipine/Sodium Chloride 40 mg in 200 mls @ 0 mls/hr 05/27/24 22:27
Cardene IV
PER PROTOCOL WINDY
Protocol
Per Protocol
Ondansetron HCl 4 mg 05/28/24 03:38 05/28/24 03:50
Ondansetron 4 Mg/2 Ml Vial IV 06/25/24 03:37 4 mg
Q6HPRN PRN Administration
NAUSEA/VOMITING
Polyethylene Glycol 17 grams 05/27/24 22:27
Polyethylene Glycol Powder 17 Grams Packet PO 06/24/24 22:26
DAILYPRN PRN
constipation
Senna/Docusate Sodium 1 tablet 05/27/24 22:27
Docusate W/Senna (Kellie-Colace) Tablet PO 06/24/24 22:26
BIDPRN PRN
constipation
Sodium Chloride 0 flush 05/27/24 23:00
Sodium Chloride 0.9% (Flush) Syringe IV 06/24/24 22:59
PER PROTOCOL WINDY
Terazosin HCl 5 mg 05/27/24 22:27 05/27/24 23:32
Terazosin 5 Mg Capsule PO 06/24/24 22:26 5 mg
HS WINDY Administration
Valsartan 320 mg 05/28/24 08:00
Valsartan 80 Mg Tablet PO 06/25/24 07:59
DAILY WINDY
Home Medications
�Medication �Instructions �Recorded
amlodipine 10 mg tablet 10 mg PO DAILY #1 tab 02/19/21
buprenorphine 15 mcg/hour weekly 15 mcg topical WE 05/27/24
transdermal patch
calcitriol 0.25 mcg capsule 0.25 mcg PO .3X WEEKLY 05/27/24
gabapentin 300 mg capsule 300 mg PO TIDPRN PRN neuropathy 05/27/24
omeprazole 20 mg capsule,delayed 20 mg PO DAILYPRN PRN gi upset 05/27/24
release
terazosin 5 mg capsule 5 mg PO HS 05/27/24
valsartan 320 mg tablet 320 mg PO DAILY 05/27/24
[2024-05-28] MEDS: NORVASC PO (08:16)
--- NOTE | 2024-05-28 08:28 | CON.INTV ---
Consultation
Consultation Request
Date/Time Consultation Requested: 05/28/2024-7 AM
Date/Time Consultation Performed: 05/28/2024-7:30 AM
Requesting Provider: Hospitalist
Performing Provider: Dr. Roberson
Reason for Consultation: CVA/critical care management
Medical History
-
Chief Complaint: CVA
History of Present Illness:
75-year-old obese male with a history of hypertension, breast cancer status post left mastectomy, who presented with hypertensive emergency as well as strokelike symptoms-[facility] consulted for CVA/hypertensive emergency/critical care management
05/28/2024. Patient continues to have significant expressive aphasia and some right upper extremity weakness and neglect. History is somewhat unreliable because of this. He offers no complaints of shortness of breath, chest pain, abdominal pain,
weakness or leg swelling.
Past Medical History
Past Medical History: None (Obesity. Hypertension. Breast cancer 2015/left mastectomy. BPH/TURP. GERD/Adams's esophagus. History of opioid dependence. Chronic back pain. Fatty liver. Diverticulitis. Vitamin D deficiency. Hepatitis B.
Right total knee arthroplasty 2019.)
Social History
Tobacco: Former Smoker
Alcohol: None
Drug: None
Personal:
Living: With Family
Occupational Exposures: No known asbestos exposure
Environmental Exposures: No known tuberculosis exposure
Family History
Family History: Reviewed & Not Pertinent
Allergies / Home Medications
Allergies
Allergy/AdvReac Type Severity Reaction Status Date / Time
codeine Allergy Itching Verified 05/27/24 17:17
ibuprofen Allergy stomach Verified 05/27/24 17:17
pain
narcotics Allergy Patient in Uncoded 05/27/24 17:17
recovery
Home Medications
�Medication �Instructions �Recorded �Confirmed �Last Taken �Type
amlodipine 10 mg tablet 10 mg PO DAILY #1 tab 02/19/21 05/27/24 05/26/24 Rx
buprenorphine 15 mcg/hour weekly 15 mcg topical WE 05/27/24 05/27/24 05/22/24 History
transdermal patch
calcitriol 0.25 mcg capsule 0.25 mcg PO .3X WEEKLY 05/27/24 05/27/24 Unknown History
gabapentin 300 mg capsule 300 mg PO TIDPRN PRN neuropathy 05/27/24 05/27/24 Unknown History
omeprazole 20 mg capsule,delayed 20 mg PO DAILYPRN PRN gi upset 05/27/24 05/27/24 Unknown History
release
terazosin 5 mg capsule 5 mg PO HS 05/27/24 05/27/24 05/26/24 History
valsartan 320 mg tablet 320 mg PO DAILY 05/27/24 05/27/24 05/26/24 History
Review of Systems
-
Unable to Obtain full review of systems at this time due to: Other (Per HPI)
Vitals / Labs / Diagnostic Testing
Vital Signs
Temp Pulse Resp BP Pulse Ox
97.8 F 73 15 129/82 91
05/28/24 08:00 05/28/24 08:16 05/28/24 08:15 05/28/24 08:16 05/28/24 08:15
Lab Data
05/28/24 03:56
05/28/24 03:56
Laboratory Results
05/27/24
23:30
PT 17.0 H
INR 1.41
APTT 35.2 H
Diagnostic Testing:
Physical Exam
-
Exam:
Well-nourished and well-developed in no apparent distress
HEENT-atraumatic, normocephalic
Neck-supple, no JVD, no bruit
Heart-regular rate and rhythm-no murmurs, rubs or gallops
Chest-clear to auscultation, no wheezes, crackles
Back-no tenderness
Abdomen-soft, nontender, nondistended, no hepatosplenomegaly
Extremities-no cyanosis, clubbing, edema and good peripheral pulses
Integument-intact, no rashes, lesions or ecchymosis
Neurologically alert, not oriented, right upper extremity weakness
Assessment
-
75-year-old obese male with a history of hypertension, breast cancer status post left mastectomy, who presented with hypertensive emergency as well as strokelike symptoms-[facility] consulted for CVA/hypertensive emergency/critical care management
05/28/2024.
Hypertensive emergency
Evolving CVA
Mild hyperglycemia
Conditions present prior to admission:
Obesity.
Hypertension.
Breast cancer 2015/left mastectomy.
BPH/TURP.
GERD/Adams's esophagus.
History of opioid dependence.
Chronic back pain.
Fatty liver.
Diverticulitis.
Vitamin D deficiency.
Hepatitis B.
Right total knee arthroplasty 2019.
Plan
Patient will be admitted to medical intensive care with severe hypertension and evolving CVA
Supplemental oxygen if needed
Monitor for end organ effect of severe hypertension
Hydralazine as needed
Labetalol as needed
Nicardipine drip initiated
Nitroprusside less attractive with potential for cyanide toxicity especially with renal insufficiency
Neurology evaluation ongoing
CT head noted
Probable MRI
Not a TKA candidate
Neurochecks
Eventual occupational, physical, speech therapy evaluation and potential for rehab
Consider Nephrology consultation if hypertension persists
Consider workup of secondary causes including renal vascular/primary hyperaldosteronism/Compton's/pheochromocytoma/etc. if hypertension is difficult to control
DVT prophylaxis
Early nutrition with aspiration precautions
Early mobilization
If able to be weaned off nicardipine and blood pressure controlled without progression and neurologic symptoms could be transferred out of ICU-[facility] will sign off-call pulmonary if respiratory issues arise
Recommend outpatient sleep apnea workup especially in light of CVA/hypertension/obesity-number and contact information will be provided
Critical care statement: A total of 55 minutes of critical care time was provided for this patient today. This includes management of unstable vital signs, evaluation of the patient at bedside, reviewing the patient's pertinent medical records
including radiographs, microbiology, laboratory evaluations, and discussion with primary team, consultants, pharmacy, nutrition, physical therapy, case management, charge nurse, critical care nursing, and respiratory therapy.
Diagnostic data:
Chest x-ray 05/27/2024-small faint opacification left apex for which a lung nodule cannot be explained
CT head 05/28/2024-no CT evidence for acute intracranial hemorrhage, severe white matter leukoaraiosis, small chronic periventricular infarct in the left frontal
Echocardiogram 04/12/2024-EF 55-60%, aortic sclerosis and no stenosis,
Data Reviewed
-
Radiology: Report reviewed by me
CT Scan: Report reviewed by me
Medical Tests (Nuc Med, Echo etc): Report reviewed by me
Labs: Labs reviewed by me
Old Records: Reviewed
Critical Care Time (in minutes): 55
[2024-05-28] MEDS: HEPARIN 5000 UNITS SC ×2 (08:40→20:40)
--- NOTE | 2024-05-28 08:52 | PTCARENOTE ---
pt awake and alert, NIHSS this am 3, pt has expressive aphasia , he intermittently is able to converse with one word answers appropriately , pt was seen by Dr Barrett , pt had a stat CT scan this am for increase in NIHSS. He was given 1 gram of IV
Keppra at 0645 , he is ordered for an EEG , his systolic blood pressure ranges from 129 to 159 , he has been off of Cardene gtt since 00:30 , as per neurology we are holding his valsartan and Amlodipine today . He is to start aspirin and Plavix
therapy
[2024-05-28] MEDS: PLAVIX 75 MG PO (10:56)
[2024-05-28] MEDS: ASPIRIN 325 MG PO (10:56)
[2024-05-28 13:06] LABS: Urine Albumin Trace (Neg - Trace); Urine Bilirubin 1+ (Negative); Urine Character Clear (Clear); Urine Color Yellow; Urine Glucose Negative (Negative); Urine Ketone 1+ (Negative); Urine Leukocyte Negative (Negative); Urine Nitrite Negative (Negative); Urine Occult Blood Negative (Negative); Urine Urobilinogen 1+ (Neg - 1+)
--- NOTE | 2024-05-28 13:41 | EEG.RPT ---
Electroencephalogram Report
Recording
Date of EE05/28/24
Type of EEG: Routine
Length of EEG recordin mins
Done with Video Recording: Yes
Patient Status: Inpatient
Recording Conditions: Awake and Drowsy
Hyperventilation Performed: No
Photic Stimulation Performed: Yes
Report
METHODS
A 21 channel digitized electroencephalogram was performed at [facility]. The 10/20 international system of electrode placement was used. In addition to EEG, the patient was monitored for EKG. The duration of the recording was 22 minutes.
BACKGROUND
During the awake state, with the eyes closed, the background was diffusely slow to 4-6Hz and at times more severe right frontal slowing.
PHOTIC STIMULATION
Photic stimulation using a step-pardo increase in photic frequency varying from 1-31 [employer] resulted in no driving responses but no appearance of abnormal activity.
CLINICAL EVENTS
None
INTERPRETATION AND CLINICAL CORRELATION
This EEG is abnormal due to the presence of moderate to severe diffuse slowing and at times more severe right frontal slowing consistent diffuse and right frontal cerebral dysfunction. No clear seizures were noted.
--- NOTE | 2024-05-28 14:52 | CM ---
CM following re: discharge planning.
Discussed in Rounds, reviewed pt's chart, met with pt. pt's spouse and daughter at bedside.
Pt is a 73 year old male, admitted with primary dx of Hypertensive emergency.
Pt lives with spouse 2SH, 2 steps to enter, has 3 supportive children. Pt's spouse described the pt as independent in all areas [employer], drives. No DME, VN or SNF history.
PCP: Rakesh Carr.
Pharmacy: [facility].
D/C plan: home with anticipated no needs. family to transport at discharge.
CM will follow with discharge plan updates as hospitalization progresses
[2024-05-28] MEDS: PROTONIX 40 MG PO (15:24)
[2024-05-28] MEDS: NORVASC 10 MG PO (17:40)
--- NOTE | 2024-05-28 17:50 | PTCARENOTE ---
pt IMU level of care, MRI complete, EEG complete , PT and OT to see pt , oob in chair for 3 hours , pt continues with NIHSS 3 , aphasia is expressive , he tends to have periods of clear thought process and other times he is unable to answer
questions. and daughter at beside and updated on plan of care and condition , family was updated by Dr Florentino on findings with diagnostics and goals . appetite is poor .
--- NOTE | 2024-05-28 19:39 | W.PN.NEURO.1 ---
Today's Communication / Plan
-
BP management
Ecasa 81 mg daily
Pat may transfer to floor
Neuro Assessment/Plan
Assessment
73 yr. old male with h/o uncontrolled HTN admitted with confusion and expressive aphasia.
Most likely is suffering from hypertensive encephalopathy
Plan
BP management. Keep systolic 160-180/80-95
Ecasa 81
Keppra 500 mg BID
Subjective/Objective
Subjective Data
Date of Service: May 28, 2024
Mr Monge remains confused. Answers questions occasionally with word finding issues. No focal weakness
Objective Data
Vital Signs
Temp Pulse Resp BP Pulse Ox
36.6 C 87 14 154/100 94
05/28/24 15:37 05/28/24 19:34 05/28/24 19:34 05/28/24 19:34 05/28/24 13:02
Lab Results
05/28/24 03:56
05/28/24 03:56
PT 17.0 Sec (11.4-14.6) H 05/27/24 23:30
INR 1.41 05/27/24 23:30
APTT 35.2 Sec (23.4-35.0) H 05/27/24 23:30
Sodium 139 mmol/L (135-145) 05/28/24 03:56
Potassium 4.0 mmol/L (3.5-5.1) 05/28/24 03:56
BUN 21 mg/dl (9-20) H 05/28/24 03:56
Glucose 134 mg/dl (70-99) H 05/28/24 03:56
Calcium 9.1 mg/dl (8.4-10.2) 05/28/24 03:56
Patient Allergies
codeine Allergy (Verified 05/27/24 17:17)
Itching
ibuprofen Allergy (Verified 05/27/24 17:17)
stomach pain
narcotics Allergy (Uncoded 05/27/24 17:17)
Patient in recovery
Physical Exam
-
General: Well Developed, Well Nourished and Obese
Eyes: Unremarkable
HEENT: Normocephalic and Atraumatic
Neck: No Bruits Bilaterally and Full Range of Motion
Respiratory: Clear to Auscultation
Cardiac: Regular Rhythm
GI: Normal Bowel Sounds
Skin: Unremarkable
Extremities: No Clubbing, No Cyanosis and Edema +1
Psych: Confused
Extended Neurological Exam
Mood & Affect: Unable to Assess
Attention Span & Concentration: Awake, Lethargic, Closes Eyes after Stimulation and Moderate Difficulty with 2 Step Request
Memory: Unable to Recall
Tremor: Hand Tremor Absent and Head Tremor Absent
Involuntary Movement: None
Speech: Expressive Aphasia
Cranial Nerve II: Left Eye: Pupillary Reactivity Unremarkable, Pupillary Size Unremarkable and Visual Vicente Grossly Intact
Cranial Nerve II: Right Eye: Pupillary Reactivity Unremarkable, Pupillary Size Unremarkable and Visual Vicente Grossly Intact
Cranial Nerves III, IV, : Extraocular Movement: Extraocular Movement Full in all Directions
Cranial Nerve V: Facial Sensation: Intact to Light Touch
Cranial Nerve VII: Facial Symmetry: Normal Facial Symmetry
Cranial Nerve VIII: Hearing: Unable to Assess
Cranial Nerves IX, X: Palate Movement: Palate Elevation Symmetric
Cranial Nerve XI: Shoulder Shrug: Unremarkable
Cranial Nerve XII: Tongue Protusion: Midline
Muscle Strength, Overall: Full Throughout
Muscle Bulk & Tone: Bulk Unremarkable and Tone Unremarkable
Pronator Drift: No Drift in Upper Extremities and No Drift in Lower Extremities
Deep Tendon Reflexes: Unremarkable Throughout
Cold Sensation: Reduced
Vibration Sensation: Reduced
Touch Sensation: Pin Prick Unremarkable
Coordination: Txoytg-ddti-yjfeeg Testing Unremarkable and Reaches for Objects without Difficulty
Babinski Sign: Absent Bilaterally
Gait & Station: Unable to Assess
Data Reviewed
-
MRI Head: Image Reviewed (Atrophy. Small vessel disease. Mild ventricular enlargement)
EEG: Report Reviewed (Diffusely low with focal slowing (R))
[2024-05-28] MEDS: KEPPRA 500 MG PO (20:29)
[2024-05-28] MEDS: HYTRIN 5 MG PO (20:29)
--- NOTE | 2024-05-28 20:55 | PTCARENOTE ---
nih is 2 for aphasia-follows commands sinus-afebrile got agitated with not being able to void- straight cathed for 500- more calm now- report given to imu RN- pt to be transferred
--- NOTE | 2024-05-28 22:46 | PTCARENOTE ---
pt admitted as transfer from ICU- pt is AAOx2- knows his name, knows he is in [facility]. pt with receptive and expressive aphasia that waxes and wanes. pt with flat affect. pt is confused at times, but seems like he knows what he wants to
say but can't say it. NIH done, 5- left side weaker than R. unable to follow some commands, drift noted to left leg, ataxia issues to legs too. LUE restriction. +2 edema to right arm. on pillow. bed alarm on for safety. care ongoing.
[2024-05-29] VITALS (11 sets, daily range): BP systolic 97–172; BP diastolic 58–130
[2024-05-29] MEDS: NSS (PRESERVATIVE FREE) 0.25 ML IV (01:55)
[2024-05-29] MEDS: ATIVAN 0.5 MG IV ×3 (01:55→12:11)
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
--- NOTE | 2024-05-29 03:58 | DOWNTIME ---
There was a [employer] Downtime on 05/29/2024 from 0100 to 05/29/2024 at 0355. Downtime documentation of patient's care, including medication administrations, has been reconciled in the electronic record per guidelines. Refer to the
patient's paper chart under the miscellaneous tab to see printed paper medication records and downtime forms.
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
--- NOTE | 2024-05-29 05:30 | PTCARENOTE ---
unable to do patients lab work this morning. pt uncooperative and will not stay still. unsafe to do at this time.
--- NOTE | 2024-05-29 06:15 | PTCARENOTE ---
pt getting increasingly agitated this AM. pt incontinent of bowel. cleaned up. while trying to clean patient up patient attempting to kick staff. notified covering [employer], pt now placed in four point restraints at this time.
[2024-05-29] MEDS: NORVASC 10 MG PO (07:34)
[2024-05-29] MEDS: DIOVAN 320 MG PO (07:35)
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
[2024-05-29] MEDS: PLAVIX 75 MG PO (07:37)
[2024-05-29] MEDS: PROTONIX 40 MG PO (07:37)
[2024-05-29] MEDS: ASPIR LOW (ENTERIC COATED) 81 MG PO (07:37)
[2024-05-29] MEDS: HEPARIN 5000 UNITS SC ×2 (07:38→20:26)
[2024-05-29] MEDS: KEPPRA 500 MG PO (07:38)
--- NOTE | 2024-05-29 08:42 | PTCARENOTE ---
PT ia oriented to self has a very short attention span when trying to do NIHSS. In 4 pt restraints , family here . Pt take his pills with OJ TT DR Sheryl sigala agitation directed to resident
[2024-05-29] MEDS: HALDOL 1 MG IV ×2 (09:06→20:25)
[2024-05-29] MEDS: ROCALTROL 0.25 MCG PO (09:08)
[2024-05-29] MEDS: NON-FORMULARY ITEM 1 MCG TOPICAL (09:14)
--- NOTE | 2024-05-29 09:45 | PTCARENOTE ---
Pt given Haldol as ordered having some calm moments with somme agitation
[2024-05-29] MEDS: ROCEPHIN 2000 MG IV (10:59)
[2024-05-29] MEDS: STERILE WATER FOR INJECTION 20 ML IV (10:59)
[2024-05-29 11:08] LABS: % Basophils 0.4 % (0-2); % Eosinophils 1.3 % (0-6); % Immature Granulocytes 0.3 % (0-0.5); % Lymphocytes 10.3 % (20.5-51.1); % Monocytes 8.5 % (1.7-9.3); % Neutrophils 79.2 % (42.2-75.2); Absolute Eosinophils 0.1 10^3/uL (0-0.7); Absolute Lymphocytes 0.7 10^3/uL (1.2-3.4); Absolute Monocytes 0.6 10^3/uL (0.1-0.6); Absolute Neutrophils 5.4 10^3/uL (1.4-6.5); Hematocrit 39.2 % (39.0-52.0); Hemoglobin 14.4 g/dL (13.0-18.0); Mean Corp Hgb Conc. 36.7 g/dL (33.0-37.0); Mean Corpuscular Hgb 32.4 pg (27.0-31.0); Mean Corpuscular Volume 88.1 fL (80.0-94.0); Nucleated Red Blood Cells % 0 % (-); Red Blood Cell Count 4.45 10^6/uL (4.70-6.10); Red Cell Dist. Width 13.1 % (11.5-14.5); White Blood Cell Count 6.8 10^3/uL (4.8-10.8)
--- NOTE | 2024-05-29 11:34 | PTCARENOTE ---
Pt remains agitated and restless. Does answer to name.
[2024-05-29] MEDS: D5/0.9% SODIUM CHLORIDE 1000 IV (12:02)
[2024-05-29 13:24] LABS: Platelet Count 83 10^3/uL (130-400)
--- NOTE | 2024-05-29 13:32 | PTCARENOTE ---
Pt to Ir with out incident remains in 4 pt restaints less agitated since given Ativan
--- NOTE | 2024-05-29 13:59 | PTCARENOTE ---
Pt back from IR very aggitated and swinging
[2024-05-29] MEDS: HALDOL 2 MG IV (14:15)
--- NOTE | 2024-05-29 14:21 | PTCARENOTE ---
Haldol given as ordered very agitated and restless . Dr abebe here
[2024-05-29] MEDS: NSS (PRESERVATIVE FREE) 0.5 ML IV ×3 (14:26→23:33)
[2024-05-29] MEDS: ATIVAN 1 MG IV ×3 (14:50→23:33)
--- NOTE | 2024-05-29 14:52 | CON.MD ---
Consultation - Medical
-
patient seen chart reviewed. discussed with nursing and with dr joseph. patient's daughter and are at bedside. patient admitted for hypertensive crisis. noted he seemed dazed and brought him to her where he was found to have extremely high
bp and was admitted. cat and mri brain showed old infarct, mild atrophy, leukoaraiosis. patient has become more and more agitated. thus far today he received 3 mg haldol and 3 mg ativan iv but is still agitated. dr joseph attempted earlier today
to do lp but patient too restless. asks if patient could be experiencing opiate wd..he has been maintained on 15 mg buprenorphine patch which was removed monday evening and only replaced this am. discussed w pharmacy and dr joseph. noted
patient's pupils are constricted. he is not sweating. no diarrhea or c.o abd pain although patient is not really communicative...he stares when asked a question and does not verbalize answer. the patient is normally very pleasant. family notes he
is NEVER combative and is generally mild tempered and affable. he has no hx depression. daughter believes he tends to be a rather anxious person although has never sought any psych rx
past psych hx none
family hx d w anxiety
substance abuse sober from [facility] for 17 years. opiate dependent bc severe lumbar disc disease uses buprenorphine patch see above
medical see above patient w hx htn old cva left breast ca w mastectomy bph w turp hx gerd diverticulosis hx cholecystectom cxr ?lung nodule at l apex dec platelet count glu 134 current bp 144/78
social three kids three grandkids retired
mse alert in that he clearly responds to voice but only by looking in your direction/ does not respond verbally/ restless and thrashing despite recent iv haldol and ativan / mentation is impaired/ unable to assess re mood anxiety
dx tme secondary to ?
recommendations at this point patient has not really responded to haldol. he has received three mg so far. patient given a stat dose of ativan one mg by this contract technical writer. he seems to have some response but short lived to ativan. limited choice of
medications given he is not taking po at this point. depakote iv could be considered. have ordered ativan jen order and a prn of haldol but qtc is 481 so need to monitor. there do not seem to be signs of opiate wd at this time. will follow
--- NOTE | 2024-05-29 15:43 | CM ---
CM reviewed chart and pt with nursing- not ready for dc
Pt remains confused with behaviors
Unable to obtain lumbar puncture today due to behaviors
PT/OT following with acute recommendations
Call to admissions to confirm [employer] as primary and Medicare as secondary
CM will continue to follow for dc planning and coordinate dispo with pt and family once closer to dc
If acute or SNF on dc, will require [employer] auth
Discharge Disposition- anticipate SNF vs acute
[2024-05-29 17:24] LABS: ALT (SGPT) 17 U/L (0-50); AST (SGOT) 25 U/L (17-59); Albumin 4.3 g/dl (3.5-5.0); Alkaline Phosphatase 84 U/L (38-126); Blood Urea Nitrogen 25 mg/dl (9-20); Calcium 9.3 mg/dl (8.4-10.2); Carbon Dioxide 22 mmol/L (22-30); Chloride 105 mmol/L (98-107); Estimated Creatinine Clearance 58 ml/min; Glucose 102 mg/dl (70-99); Potassium 4.2 mmol/L (3.5-5.1); Sodium 140 mmol/L (135-145); Total Bilirubin 1.8 mg/dl (0.2-1.3); Total Protein 6.8 g/dl (6.3-8.2); eGFR 57.29
--- NOTE | 2024-05-29 17:24 | PTCARENOTE ---
Pt npw has RU arm midline
--- NOTE | 2024-05-29 20:27 | W.PN.NEURO.1 ---
Today's Communication / Plan
-
Continue ICU management
BP control
Ativan prn
Haldol prn
Neuro Assessment/Plan
Assessment
73 yr. old male with h/o uncontrolled HTN admitted with confusion agitation and speech impediment. With BP elevated at time of admission. Now agitated secondary to Buprenorphine withdrawal
Plan
BP management. Keep systolic 160-180/80-95
Ecasa 81
Buprenorphine patch
EEG completed
MRI head completed
Stop Keppra
Consider Depakote
Subjective/Objective
Subjective Data
Date of Service: May 29, 2024
Pat is confused and agitated. Was off the Buprenorphine patch for 24 hours, which was replaced.
Objective Data
Vital Signs
Temp Pulse Resp BP Pulse Ox
37.0 C 122 19 144/78 94
05/29/24 14:29 05/29/24 17:00 05/29/24 17:00 05/29/24 14:00 05/29/24 10:00
Lab Results
05/29/24 10:29
05/29/24 16:49
PT 17.0 Sec (11.4-14.6) H 05/27/24 23:30
INR 1.41 05/27/24 23:30
APTT 35.2 Sec (23.4-35.0) H 05/27/24 23:30
Sodium 140 mmol/L (135-145) 05/29/24 16:49
Potassium 4.2 mmol/L (3.5-5.1) 05/29/24 16:49
BUN 25 mg/dl (9-20) H 05/29/24 16:49
Glucose 102 mg/dl (70-99) H 05/29/24 16:49
Calcium 9.3 mg/dl (8.4-10.2) 05/29/24 16:49
Patient Allergies
codeine Allergy (Verified 05/27/24 17:17)
Itching
ibuprofen Allergy (Verified 05/27/24 17:17)
stomach pain
narcotics Allergy (Uncoded 05/27/24 17:17)
Patient in recovery
Physical Exam
-
General: Well Developed, Well Nourished, Appears in Distress and Obese
Eyes: Able to visualize OU, Unremarkable and Round OU
HEENT: Normocephalic and Atraumatic
Neck: Full Range of Motion
Skin: Unremarkable
Extremities: No Clubbing, No Cyanosis and Edema +1
Psych: Confused and Agitated
Extended Neurological Exam
Mood & Affect: Other (Agitated)
Attention Span & Concentration: Unable to Perform 2 Step Request
Memory: Unable to Assess
Tremor: Asterixis
Speech: Moderately Reduced Output and Variable
Cranial Nerve II: Left Eye: Pupillary Reactivity Unremarkable, Pupillary Size Unremarkable and Visual Vicente Grossly Intact
Cranial Nerve II: Right Eye: Pupillary Reactivity Unremarkable, Pupillary Size Unremarkable and Visual Vicente Grossly Intact
Cranial Nerves III, IV, : Extraocular Movement: Extraocular Movement Full in all Directions
Cranial Nerve V: Facial Sensation: Intact to Light Touch
Cranial Nerve VII: Facial Symmetry: Normal Facial Symmetry
Cranial Nerve VIII: Hearing: Unable to Assess
Cranial Nerves IX, X: Palate Movement: Unable to Assess
Cranial Nerve XI: Shoulder Shrug: Unremarkable
Cranial Nerve XII: Tongue Protusion: Midline
Muscle Strength, Overall: Full Throughout and Spontaneously Moves
Muscle Bulk & Tone: Bulk Unremarkable and Tone Unremarkable
Pronator Drift: No Drift in Upper Extremities and No Drift in Lower Extremities
Deep Tendon Reflexes: Trace Throughout
Cold Sensation: Unable to Assess
Vibration Sensation: Unable to Assess
Touch Sensation: Pin Prick Unremarkable
Coordination: Reaches for Objects without Difficulty
Babinski Sign: Absent Bilaterally
Gait & Station: Up from Seated Without Problem
Data Reviewed
-
MRI Head: Image Reviewed (Atrophy small vessel disease R>L)
EEG: Report Reviewed (Diffusely slow)
[2024-05-29] MEDS: HYTRIN PO (21:47)
[2024-05-29 22:15] LABS: Amphetamines Negative (Negative); Barbiturates Negative (Negative); Benzodiazepines Positive (Negative); Buprenorphine Negative (Negative); Cocaine Negative (Negative); Marijuana Positive (Negative); Methadone Negative (Negative); Methamphetamines Negative (Negative); Opiates Negative (Negative); Phencyclidine Negative (Negative); Tricyclic Antidepressants Negative (Negative)
[2024-05-29 22:24] LABS: Fentanyl, Urine Negative (Negative)
[2024-05-30] VITALS (16 sets, daily range): BP systolic 127–177; BP diastolic 79–97; PULSE 68–94; O2SAT 100; BMI 32.8
--- NOTE | 2024-05-30 | PTCARENOTE ---
Assume care from AM RN. AAOX1, restless, anxious and easily agitated. Drowsy at times. Pt remains in four point restrains. NSR to ST in the monitor. RTC 450-490. Tr Lung sounds are diminished, SaO2 96% RA. Shallow breathing. Abd round and
incontinence of bowel and bladder. # [address] Q2 turn[address]
[2024-05-30] MEDS: D5/0.9% SODIUM CHLORIDE 1000 IV ×2 (05:00→19:49)
[2024-05-30 05:42] LABS: Hematocrit 39.6 % (39.0-52.0); Hemoglobin 14.1 g/dL (13.0-18.0); Mean Corp Hgb Conc. 35.6 g/dL (33.0-37.0); Mean Corpuscular Volume 92.7 fL (80.0-94.0); Mean Platelet Volume 9.3 fL (7.4-10.4); Platelet Count 175 10^3/uL (130-400); Red Blood Cell Count 4.27 10^6/uL (4.70-6.10); Red Cell Dist. Width 12.9 % (11.5-14.5); White Blood Cell Count 6.2 10^3/uL (4.8-10.8)
[2024-05-30 06:27] LABS: ALT (SGPT) 17 U/L (0-50); AST (SGOT) 26 U/L (17-59); Albumin 4.2 g/dl (3.5-5.0); Alkaline Phosphatase 75 U/L (38-126); Blood Urea Nitrogen 19 mg/dl (9-20); Calcium 9.1 mg/dl (8.4-10.2); Carbon Dioxide 20 mmol/L (22-30); Chloride 109 mmol/L (98-107); Estimated Creatinine Clearance 68 ml/min; Glucose 99 mg/dl (70-99); Potassium 4.5 mmol/L (3.5-5.1); Sodium 144 mmol/L (135-145); Total Bilirubin 1.5 mg/dl (0.2-1.3); Total Protein 6.8 g/dl (6.3-8.2); eGFR > 60.00
[2024-05-30] MEDS: NSS (PRESERVATIVE FREE) 0.5 ML IV ×3 (06:37→21:21)
[2024-05-30] MEDS: ATIVAN 1 MG IV ×3 (06:38→21:21)
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
--- NOTE | 2024-05-30 09:05 | PTCARENOTE ---
Patient received from territory sales representative. Patient resting comfortably in bed. AAOx2, VSS. No complaints of pain at this time. Patient with some agitation overnight, remains in 4 point restraints and 4 siderails. Will assess need for restraints
throughout shift and remove at tolerated. No test scheduled as of now. Call nichols in reach.
[2024-05-30] MEDS: STERILE WATER FOR INJECTION 20 ML IV (09:41)
[2024-05-30] MEDS: HEPARIN 5000 UNITS SC ×2 (09:41→20:41)
[2024-05-30] MEDS: ROCEPHIN 2000 MG IV (09:41)
[2024-05-30] MEDS: HALDOL IV (09:52)
[2024-05-30] MEDS: NORVASC 10 MG PO (09:53)
[2024-05-30] MEDS: ASPIR LOW (ENTERIC COATED) 81 MG PO (09:53)
[2024-05-30] MEDS: PROTONIX 40 MG PO (09:53)
[2024-05-30] MEDS: DIOVAN 320 MG PO (09:54)
[2024-05-30] MEDS: ATIVAN IV (12:12)
[2024-05-30] MEDS: NSS (PRESERVATIVE FREE) IV ×2 (12:12→18:45)
--- NOTE | 2024-05-30 13:45 | W.PN.UPDATE ---
Update Note
Progress Note Update
A multidisciplinary discussion was had with neurology and psychiatry. At this time it appears that the patient's change in mental status was multifactorial and due to hypertensive emergency causing hypertensive encephalopathy as well as withdrawal
from not having his buprenorphine patch on as well as Keppra use. Considering his significant improvement in mental status we are stopping antibiotics and will cancel the patient's lumbar puncture for now.
--- NOTE | 2024-05-30 16:20 | W.PN.UPDATE ---
Update Note
Progress Note Update
patient seen chart reviewed. discussed w nursing. and daughter at bedside. the patient is much better. he was calm and fully oriented. nursing informed me that haldol and ativan were held at times for sedation. have decreased the doses haldol
to o.5 mg bid and ativan to q 8h both hold for sedation. when i explained this to patient he said he liked feeling calm. reassured him he would still have orders in place for agitation but we did not want him to be overly sedated. mentioned
dry eyes. have ordered lubricant eye drops. will see patient in the am.
[2024-05-30] MEDS: REFRESH CELLUVISC GEL 1 DROPS OPHTH (16:27)
[2024-05-30] MEDS: HYTRIN 5 MG PO (21:20)
[2024-05-30] MEDS: TYLENOL 650 MG PO (21:44)
[2024-05-31] VITALS (13 sets, daily range): BP systolic 128–174; BP diastolic 69–115; PULSE 90–99; O2SAT 100
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
[2024-05-31 04:04] LABS: Hematocrit 38.3 % (39.0-52.0); Hemoglobin 13.9 g/dL (13.0-18.0); Mean Corp Hgb Conc. 36.3 g/dL (33.0-37.0); Mean Corpuscular Volume 88.2 fL (80.0-94.0); Mean Platelet Volume 9.3 fL (7.4-10.4); Platelet Count 183 10^3/uL (130-400); Red Blood Cell Count 4.34 10^6/uL (4.70-6.10); Red Cell Dist. Width 12.9 % (11.5-14.5); White Blood Cell Count 5.7 10^3/uL (4.8-10.8)
[2024-05-31 04:25] LABS: Blood Urea Nitrogen 14 mg/dl (9-20); Carbon Dioxide 20 mmol/L (22-30); Chloride 110 mmol/L (98-107); Estimated Creatinine Clearance 75 ml/min; Glucose 106 mg/dl (70-99); Potassium 3.8 mmol/L (3.5-5.1); Sodium 142 mmol/L (135-145); eGFR > 60.00
[2024-05-31] MEDS: D5/0.9% SODIUM CHLORIDE 1000 IV (05:33)
[2024-05-31] MEDS: ATIVAN 1 MG IV (05:34)
[2024-05-31] MEDS: NSS (PRESERVATIVE FREE) 0.5 ML IV (05:34)
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
[2024-05-31] MEDS: NORVASC 10 MG PO (09:10)
[2024-05-31] MEDS: ASPIR LOW (ENTERIC COATED) 81 MG PO (09:11)
[2024-05-31] MEDS: PROTONIX 40 MG PO (09:11)
[2024-05-31] MEDS: DIOVAN 320 MG PO (09:11)
[2024-05-31] MEDS: HEPARIN 5000 UNITS SC ×2 (09:12→19:41)
[2024-05-31] MEDS: TYLENOL 650 MG PO ×2 (09:13→21:18)
[2024-05-31] MEDS: ROCALTROL 0.25 MCG PO (09:14)
[2024-05-31] MEDS: LIDOCAINE 4% PATCH 1 PATCH TOPICAL (10:40)
--- NOTE | 2024-05-31 10:40 | W.PN.NEURO.1 ---
Today's Communication / Plan
-
Continue blood pressure management
ICU management
Patient may be transferred to the floor once medically stable
Neuro Assessment/Plan
Assessment
73 yr. old male with h/o uncontrolled HTN admitted with confusion agitation and speech impediment. With BP elevated at time of admission. Now agitated secondary to Buprenorphine withdrawal
Plan
BP management. Keep systolic 160-180/80-95
Ecasa 81
Buprenorphine patch
Stop Keppra
Subjective/Objective
Subjective Data
Date of Service: May 31, 2024
Patient is now awake but slow. Oriented to person place and time. Speech is fluent recognizes family members
Objective Data
Vital Signs
Temp Pulse Resp BP Pulse Ox
36.8 C 99 16 151/81 98
05/31/24 07:16 05/31/24 09:11 05/31/24 06:00 05/31/24 09:11 05/31/24 06:00
Lab Results
05/31/24 03:47
05/31/24 03:47
PT 17.0 Sec (11.4-14.6) H 05/27/24 23:30
INR 1.41 05/27/24 23:30
APTT 35.2 Sec (23.4-35.0) H 05/27/24 23:30
Sodium 142 mmol/L (135-145) 05/31/24 03:47
Potassium 3.8 mmol/L (3.5-5.1) 05/31/24 03:47
BUN 14 mg/dl (9-20) 05/31/24 03:47
Glucose 106 mg/dl (70-99) H 05/31/24 03:47
Calcium 9.0 mg/dl (8.4-10.2) 05/31/24 03:47
Ur Buprenorphine Negative (Negative) 05/29/24 21:47
Patient Allergies
codeine Allergy (Verified 05/27/24 17:17)
Itching
ibuprofen Allergy (Verified 05/27/24 17:17)
stomach pain
narcotics Allergy (Uncoded 05/27/24 17:17)
Patient in recovery
Physical Exam
-
General: Well Developed, Well Nourished and Obese
Eyes: Able to visualize OU, Unremarkable and Round OU
HEENT: Normocephalic and Atraumatic
Neck: No Bruits Bilaterally and Full Range of Motion
Skin: Unremarkable
Extremities: No Clubbing, No Cyanosis and Edema +1
Psych: Confused
Extended Neurological Exam
Mood & Affect: Mood Unremarkable and Affect Unremarkable
Attention Span & Concentration: Awake, Interactive and No Difficulty with 2 Step Request
Memory: Unremarkable, Able to Recall, Recalls Objects and Recalls Short Term
Tremor: Hand Tremor Absent and Head Tremor Absent
Involuntary Movement: None
Speech: Quality Unremarkable, Quantity Unremarkable and Rate of Production Unremarkable
Cranial Nerve II: Left Eye: Pupillary Reactivity Unremarkable and Pupillary Size Unremarkable
Cranial Nerve II: Right Eye: Pupillary Reactivity Unremarkable and Pupillary Size Unremarkable
Cranial Nerves III, IV, : Extraocular Movement: Extraocular Movement Full in all Directions
Cranial Nerve V: Facial Sensation: Intact to Light Touch
Cranial Nerve VII: Facial Symmetry: Normal Facial Symmetry
Cranial Nerve VIII: Hearing: Unremarkable Hearing to Normal Conversational Volume
Cranial Nerve XI: Shoulder Shrug: Unremarkable
Cranial Nerve XII: Tongue Protusion: Midline
Muscle Strength, Overall: Full Throughout
Muscle Bulk & Tone: Bulk Unremarkable and Tone Unremarkable
Pronator Drift: No Drift in Upper Extremities and No Drift in Lower Extremities
Deep Tendon Reflexes: Trace Throughout
Cold Sensation: Unremarkable
Vibration Sensation: Unremarkable
Touch Sensation: Unremarkable
Coordination: [id number] Testing Unremarkable
Babinski Sign: Absent Bilaterally
Gait & Station: Up from Seated Without Problem
Data Reviewed
-
MRI Head: Image Reviewed (Atrophy small vessel disease mild ventricular dilation)
EEG: Report Reviewed (Diffusely slow)
--- NOTE | 2024-05-31 11:14 | CM ---
Patient with Dx uncontrolled HTN Mental status change likely due hypertensive encephalopathy, Expressive Aphasia. Receiving buprenorphine patch, IVF. Seen by Psych- IV Ativan and IV Haldol discontinued. PT/OT recommend acute rehab. ST Eval
pending. Per nurse; A/O today.
Met with patient, Heather and daughter Meseret; discussed PT/OT recommendations for acute rehab. Patient initially stating he prefers to go home however & daughter hoping he could go to [facility] and patient then agrees to consider. Discussed
that if patient continues to improve with his mobility that he could go to SNF or home with HH. Family's SNF preference would be [facility].
Message to Elodia Florentino, Resident & Dr Saucedo requesting Physiatry Eval.
Case discussed with [facility] Liaison. Referral for [facility] placed.
Plan follow up after seen by Physiatry.
--- NOTE | 2024-05-31 12:17 | PTCARENOTE ---
Assumed care of patient. Received report from RN. Pt is disoriented to time but oriented to place and self. Pt very cooperative with care. No aphasia noted, slow speech. Pt complains of arm and elbow soreness. Lidocaine patch placed. Wrapped elbow
with ari to stabilize elbow. Pt given PRN tylenol for the pain. Pt stands to use urinal. Pt walked through halls with PT/OT, tolerated ambulation. Pt given full CHG bath and midline dressing is clean, dry, and intact. VSS, normal sinus on tele. Pt
is currently in the chair, the call nichols is within reach.
[2024-05-31] MEDS: ORETIC 25 MG PO (12:47)
--- NOTE | 2024-05-31 14:40 | W.PN.UPDATE ---
Update Note
Progress Note Update
patient seen chart reviewed. spoke with nursing and OT . at bedside. patient is doing much much better. he was in 's opinion back to baseline. dr joseph stopped haldol and ativan this am. dr weinstein why will see patient later re ? [facility]. patient
favors going home w rehab... is hoping he will be able to remain in patient at [facility]. at this point no sign of the agitation he displayed early in this stay. patient being transferred to [facility]. no psych meds currently. psych will sign off.
--- NOTE | 2024-05-31 16:00 | PTCARENOTE ---
Report called to Sravanthi FELICIANO 2N. Patient transferred via patient transport with all known belongings.
--- NOTE | 2024-05-31 16:24 | PTCARENOTE ---
Received report from Christiano ROMERO RN. Patient transferred into room 2131. AOx3. VSS. Able to ambulate w/ RW and x1 assistance. Now OOB to chair. Chatting w/ visitors. Updated on plan of care. Left w/ call nichols in reach.
[2024-05-31] MEDS: NSS (PRESERVATIVE FREE) IV (16:26)
[2024-05-31] MEDS: HYTRIN 5 MG PO (21:10)
[2024-06-01] MEDS: NEURONTIN 300 MG PO (01:06)
[2024-06-01 07:10] VITALS: BP 114/89
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
[2024-06-01] MEDS: ORETIC 25 MG PO (08:50)
[2024-06-01] MEDS: PROTONIX 40 MG PO (08:50)
[2024-06-01] MEDS: DIOVAN 320 MG PO (08:51)
[2024-06-01] MEDS: NORVASC 10 MG PO (08:51)
[2024-06-01] MEDS: ASPIR LOW (ENTERIC COATED) 81 MG PO (08:52)
[2024-06-01] MEDS: TYLENOL 650 MG PO ×2 (08:52→20:51)
[2024-06-01] MEDS: HEPARIN 5000 UNITS SC ×2 (08:53→20:45)
[2024-06-01 09:19] LABS: Hematocrit 41.8 % (39.0-52.0); Hemoglobin 15.3 g/dL (13.0-18.0); Mean Corp Hgb Conc. 36.6 g/dL (33.0-37.0); Mean Corpuscular Volume 90.3 fL (80.0-94.0); Mean Platelet Volume 9.5 fL (7.4-10.4); Platelet Count 172 10^3/uL (130-400); Red Blood Cell Count 4.63 10^6/uL (4.70-6.10); Red Cell Dist. Width 12.8 % (11.5-14.5); White Blood Cell Count 5.8 10^3/uL (4.8-10.8)
[2024-06-01 09:37] LABS: ALT (SGPT) 18 U/L (0-50); AST (SGOT) 26 U/L (17-59); Albumin 4.5 g/dl (3.5-5.0); Alkaline Phosphatase 95 U/L (38-126); Blood Urea Nitrogen 9 mg/dl (9-20); Calcium 9.6 mg/dl (8.4-10.2); Carbon Dioxide 18 mmol/L (22-30); Chloride 103 mmol/L (98-107); Estimated Creatinine Clearance 62 ml/min; Glucose 101 mg/dl (70-99); Potassium 3.3 mmol/L (3.5-5.1); Sodium 139 mmol/L (135-145); Total Bilirubin 1.8 mg/dl (0.2-1.3); Total Protein 7.2 g/dl (6.3-8.2); eGFR > 60.00
--- NOTE | 2024-06-01 10:51 | CON.ORTHO ---
Consultation - Orthopedics
History
HPI: 73-year-old male presented to the emergency department and found to have hypertensive encephalopathy with associated expressive aphasia. Patient was reportedly requiring restraints during his hospitalization. He is now alert and oriented and
is complaining of right elbow pain. Orthopedics was consulted for further evaluation and treatment. This morning patient localizes pain to the right elbow. He feels as though this began when he was restrained. He denies any baseline elbow pain
or dysfunction. He localizes pain to the tip of olecranon and to the lateral aspect of the elbow. He reports that he has no limitations with range of motion but does have pain when leaning directly on his elbow. Denies any new numbness or tingling
Allergies / Home Medications
:
Past medical history: Breast cancer status post left mastectomy, hypertension, right knee osteoarthritis status post total knee arthroplasty, BPH, Adams's esophagus, GERD, fatty liver, hep B, history of opioid dependence, chronic back pain
Past surgical history: Right total knee arthroplasty, TURP, mastectomy
Social history: Former smoker, , lives with
Family history: Not pertinent
Allergy/AdvReac Type Severity Reaction Status Date / Time
codeine Allergy Itching Verified 05/27/24 17:17
ibuprofen Allergy stomach Verified 05/27/24 17:17
pain
narcotics Allergy Patient in Uncoded 05/27/24 17:17
recovery
�Medication �Instructions �Recorded
amlodipine 10 mg tablet 10 mg PO DAILY #1 tab 02/19/21
buprenorphine 15 mcg/hour weekly 15 mcg topical WE Pain 05/27/24
transdermal patch
calcitriol 0.25 mcg capsule 0.25 mcg PO .3X WEEKLY Kidney 05/27/24
Disease
gabapentin 300 mg capsule 300 mg PO TIDPRN PRN neuropathy 05/27/24
omeprazole 20 mg capsule,delayed 20 mg PO DAILYPRN PRN gi upset 05/27/24
release
terazosin 5 mg capsule 5 mg PO HS Urinary Issue 05/27/24
valsartan 320 mg tablet 320 mg PO DAILY Blood Pressure 05/27/24
Vital Signs / Lab Results
Temp Pulse Resp BP Pulse Ox
98.6 F 102 16 114/89 97
06/01/24 07:10 06/01/24 08:51 06/01/24 07:10 06/01/24 08:51 06/01/24 07:10
06/01/24 08:54
06/01/24 08:54
10 point review systems reviewed and negative unless otherwise stated
General: Pleasant, no acute distress at rest, musculoskeletal right upper extremity
Skin intact overlying elbow, no erythema or ecchymotic staining over elbow, there is some ecchymotic staining noted however dorsum of hand right upper extremity
There is no palpable fluctuance over tip of olecranon
There is some mild swelling noted however
There is no tenderness palpation over flexor pronator mass medial condyle
There are some tenderness palpation of the radiocapitellar joint
Patient with symmetric active range of motion with flexion extension pronation supination without deficit
No gross motor or sensory deficit noted left upper extremity
Diagnostic studies
X-rays pending
Assessment / Plan
73-year-old male hypertensive encephalopathy with expressive aphasia, requiring restraints during hospitalization now alert and oriented complaining of right elbow pain. There is no significant fluctuance to suggest significant olecranon bursitis.
He does have some diffuse tenderness over to the olecranon radiocapitellar joint. Will recommend obtaining radiographs to rule out fracture. Certainly could possibly be a contusion as he did require restraints and feels as though he banged his
elbow. Would not recommend any further intervention at this time. Will follow-up x-rays. Continue pain control/anti-inflammatory medications unless otherwise contraindicated. Please reach out with questions or concerns
[2024-06-01] MEDS: KCL 40 MEQ PO (11:06)
[2024-06-01 15:00] VITALS: BP 153/91; BMI 32.3
--- NOTE | 2024-06-01 15:17 | W.PN.UPDATE ---
Update Note
Progress Note Update
X-rays were reviewed. No fractures identified. Negative posterior fat pad sign. There is a large enthesophyte tip of olecranon.
Given x-ray findings without fracture, would recommend pain control, no immobilization. Likely contusion versus mild traumatic bursitis olecranon bursa. Would not recommend any further orthopedic intervention. More than happy to see patient on
outpatient basis should symptoms persist.
[2024-06-01] MEDS: HYTRIN 5 MG PO (22:10)
[2024-06-01 23:08] VITALS: BP 137/77
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
[2024-06-02 07:57] VITALS: BP 139/103
[2024-06-02] MEDS: PROTONIX 40 MG PO (08:20)
[2024-06-02] MEDS: DIOVAN 320 MG PO (08:20)
[2024-06-02] MEDS: ORETIC 25 MG PO (08:21)
[2024-06-02] MEDS: HEPARIN 5000 UNITS SC ×2 (08:21→21:22)
[2024-06-02] MEDS: NORVASC 10 MG PO (08:21)
[2024-06-02] MEDS: ASPIR LOW (ENTERIC COATED) 81 MG PO (08:21)
[2024-06-02 08:38] LABS: Hematocrit 39.5 % (39.0-52.0); Hemoglobin 14.5 g/dL (13.0-18.0); Mean Corp Hgb Conc. 36.7 g/dL (33.0-37.0); Mean Corpuscular Hgb 32.2 pg (27.0-31.0); Mean Corpuscular Volume 87.6 fL (80.0-94.0); Mean Platelet Volume 9.7 fL (7.4-10.4); Platelet Count 195 10^3/uL (130-400); Red Blood Cell Count 4.51 10^6/uL (4.70-6.10); White Blood Cell Count 5.1 10^3/uL (4.8-10.8)
[2024-06-02 09:15] LABS: ALT (SGPT) 22 U/L (0-50); AST (SGOT) 33 U/L (17-59); Albumin 4.3 g/dl (3.5-5.0); Alkaline Phosphatase 94 U/L (38-126); Blood Urea Nitrogen 10 mg/dl (9-20); Calcium 9.4 mg/dl (8.4-10.2); Carbon Dioxide 23 mmol/L (22-30); Chloride 101 mmol/L (98-107); Estimated Creatinine Clearance 67 ml/min; Glucose 106 mg/dl (70-99); Potassium 3.3 mmol/L (3.5-5.1); Sodium 138 mmol/L (135-145); Total Bilirubin 1.3 mg/dl (0.2-1.3); Total Protein 6.9 g/dl (6.3-8.2); eGFR > 60.00
[2024-06-02] MEDS: KCL 40 MEQ PO (11:44)
[2024-06-02 15:50] VITALS: BP 126/73
--- NOTE | 2024-06-02 16:25 | CM ---
CM reviewed chart. PM&R consult remains outstanding. Pt will require a PM&R eval as well as repeat PT and OT within 24hrs of discharge for insurance auth to rehab. Dispo: [facility] vs [facility] vs Home w/[facility].
CM/SW will continue to follow to ensure a safe and timely discharge.
[2024-06-02] MEDS: TYLENOL 650 MG PO (17:04)
[2024-06-02 18:58] VITALS: BP 143/67
[2024-06-02] MEDS: HYTRIN 5 MG PO (21:30)
[2024-06-02 21:33] VITALS: BP 157/91
[2024-06-02 23:06] VITALS: BP 142/87
[2024-06-03] MEDS: TYLENOL 650 MG PO (06:32)
[2024-06-03 06:52] LABS: % Basophils 0.3 % (0-2); % Eosinophils 3.4 % (0-6); % Immature Granulocytes 0.3 % (0-0.5); % Lymphocytes 24.3 % (20.5-51.1); % Monocytes 11.4 % (1.7-9.3); % Neutrophils 60.3 % (42.2-75.2); Absolute Eosinophils 0.2 10^3/uL (0-0.7); Absolute Lymphocytes 1.4 10^3/uL (1.2-3.4); Absolute Monocytes 0.7 10^3/uL (0.1-0.6); Absolute Neutrophils 3.5 10^3/uL (1.4-6.5); Hematocrit 39.7 % (39.0-52.0); Hemoglobin 14.4 g/dL (13.0-18.0); Mean Corp Hgb Conc. 36.3 g/dL (33.0-37.0); Mean Corpuscular Hgb 33.3 pg (27.0-31.0); Mean Corpuscular Volume 91.9 fL (80.0-94.0); Nucleated Red Blood Cells % 0 % (-); Platelet Count 198 10^3/uL (130-400); Red Blood Cell Count 4.32 10^6/uL (4.70-6.10); White Blood Cell Count 5.8 10^3/uL (4.8-10.8)
[2024-06-03 07:13] LABS: ALT (SGPT) 32 U/L (0-50); AST (SGOT) 46 U/L (17-59); Albumin 4.4 g/dl (3.5-5.0); Alkaline Phosphatase 92 U/L (38-126); Blood Urea Nitrogen 15 mg/dl (9-20); Calcium 9.6 mg/dl (8.4-10.2); Carbon Dioxide 23 mmol/L (22-30); Chloride 100 mmol/L (98-107); Estimated Creatinine Clearance 53 ml/min; Glucose 99 mg/dl (70-99); Potassium 3.8 mmol/L (3.5-5.1); Sodium 138 mmol/L (135-145); Total Bilirubin 1.4 mg/dl (0.2-1.3); eGFR 52.41
[2024-06-03 07:20] VITALS: BP 160/139
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
[2024-06-03] MEDS: ASPIR LOW (ENTERIC COATED) 81 MG PO (08:01)
[2024-06-03] MEDS: DIOVAN 320 MG PO (08:01)
[2024-06-03] MEDS: PROTONIX 40 MG PO (08:01)
[2024-06-03] MEDS: NORVASC 10 MG PO (08:02)
[2024-06-03] MEDS: HEPARIN 5000 UNITS SC (08:02)
[2024-06-03] MEDS: ORETIC 25 MG PO (08:02)
[2024-06-03] MEDS: ROCALTROL 0.25 MCG PO (08:05)
[2024-06-03 08:51] VITALS: BP 139/83
--- NOTE | 2024-06-03 08:55 | PTCARENOTE ---
pt aaox3. states min pain in left elbow. walking evangelista with walker no assistance. ambulates in room. reviewed plan of care.
--- NOTE | 2024-06-03 09:26 | CM ---
Reviewed the chart notes and spoke with the patient at the bedside. IMM reviewed. The patient wants home with VN services. Discussed area VNs, patient selected [facility]. CM continues to be available to patient/family and is monitoring medical plan
for needs at discharge.
Plan: Discharge to home with VN services. Patient's spouse will provide transportation.
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
[2024-06-03 13:35] VITALS: BP 144/68
[2024-06-03 13:56] LABS: Urine Albumin Trace (Neg - Trace); Urine Bilirubin 1+ (Negative); Urine Character Clear (Clear); Urine Color Yellow; Urine Glucose Negative (Negative); Urine Ketone 1+ (Negative); Urine Leukocyte 1+ (Negative); Urine Nitrite Negative (Negative); Urine Occult Blood Negative (Negative); Urine Specific Gravity 1.025 (<1.030); Urine Urobilinogen 1+ (Neg - 1+)
[2024-06-03 14:09] LABS: Urine Urothelial Cell 0-2 /LPF (FEW)
[2024-06-03 14:11] LABS: Urine Bacteria Moderate (Negative); Urine White Cell 16-20 /HPF (0-5)
== END 2024-06-03 13:58 | disposition home health service (06) | DRG 77 ==
LOC: 2 NORTH 22:09
PROVIDERS: Internal Medicine; Physician Assistant; Registered Nurse; Student in an Organized Health Care Education/Training Program; ADMITTING PHYSICIAN Internal Medicine; ATTENDING PHYSICIAN Family Medicine; CONSULT PHYSICIAN Orthopaedic Surgery; CONSULT PHYSICIAN Psychiatry & Neurology Neurology; CONSULT PHYSICIAN Psychiatry & Neurology Psychiatry; EMERGENCY PHYSICIAN Emergency Medicine; FAMILY PHYSICIAN Nurse Practitioner Family; OTHER PHYSICIAN Internal Medicine Critical Care Medicine
DX: I67.4 Hypertensive encephalopathy (principal); G93.41 Metabolic encephalopathy; F05 Delirium due to known physiological condition; N17.9 Acute kidney failure, unspecified; F11.20 Opioid dependence, uncomplicated; R47.01 Aphasia; N39.0 Urinary tract infection, site not specified; E87.6 Hypokalemia; I12.9 Hypertensive chronic kidney disease with stage 1 through stage 4 chronic kidney disease, or unspecified chronic kidney disease; N18.9 Chronic kidney disease, unspecified; E66.01 Morbid (severe) obesity due to excess calories; Z68.33 Body mass index [BMI] 33.0-33.9, adult; Z85.3 Personal history of malignant neoplasm of breast
CPT/HCPCS: 70450; 70551; 71045; 73070; 74176; 80048; 80053; 80306; 80307; 81003; 81015; 82962; 83735; 85025; 85027; 85610; 85730; 87086; 93005; 95816; 96374; 96375; 96376; 97110; 97116; 97129; 97163; 97167; 97530; 97535; 99291

== ENCOUNTER → 2024-06-05 12:29 | Outpatient (REF) | payer OTHER, SELFPAY ==
[2024-06-05 15:35] LABS: ALT (SGPT) 39 U/L (0-50); AST (SGOT) 49 U/L (17-59); Albumin 4.8 g/dl (3.5-5.0); Alkaline Phosphatase 84 U/L (38-126); Blood Urea Nitrogen 37 mg/dl (9-20); Calcium 9.5 mg/dl (8.4-10.2); Carbon Dioxide 22 mmol/L (22-30); Chloride 99 mmol/L (98-107); Glucose 98 mg/dl (70-99); Magnesium 2.3 mg/dl (1.6-2.3); Potassium 4.2 mmol/L (3.5-5.1); Sodium 139 mmol/L (135-145); Total Bilirubin 1.4 mg/dl (0.2-1.3); Total Protein 7.8 g/dl (6.3-8.2); eGFR 32.22
== END ==
LOC: HWRAD 12:29
PROVIDERS: ATTENDING PHYSICIAN Nurse Practitioner Family; REFERRING PHYSICIAN Specialist
DX: Z09 Encounter for follow-up examination after completed treatment for conditions other than malignant neoplasm (principal); R11.0 Nausea; R26.89 Other abnormalities of gait and mobility; K59.00 Constipation, unspecified
CPT/HCPCS: 36415; 74018; 80053; 83735

== ENCOUNTER → 2024-06-07 09:31 | Outpatient (REF) | payer OTHER, SELFPAY ==
[2024-06-07 10:33] LABS: Urine Albumin Trace (Neg - Trace); Urine Bilirubin 1+ (Negative); Urine Character Clear (Clear); Urine Color Yellow; Urine Glucose Negative (Negative); Urine Ketone Negative (Negative); Urine Leukocyte Trace (Negative); Urine Nitrite Negative (Negative); Urine Occult Blood Negative (Negative); Urine Specific Gravity 1.025 (<1.030); Urine Urobilinogen 1+ (Neg - 1+)
[2024-06-07 10:41] LABS: Urine Bacteria Few (Negative); Urine Red Blood Cell 0-2 /HPF (0-2)
[2024-06-07 11:03] LABS: % Basophils 0.5 % (0-2); % Eosinophils 3.7 % (0-6); % Immature Granulocytes 0.5 % (0-0.5); % Lymphocytes 19.5 % (20.5-51.1); % Monocytes 11.4 % (1.7-9.3); % Neutrophils 64.4 % (42.2-75.2); Absolute Eosinophils 0.2 10^3/uL (0-0.7); Absolute Lymphocytes 1.2 10^3/uL (1.2-3.4); Absolute Monocytes 0.7 10^3/uL (0.1-0.6); Absolute Neutrophils 3.8 10^3/uL (1.4-6.5); Hematocrit 40.8 % (39.0-52.0); Hemoglobin 14.4 g/dL (13.0-18.0); Mean Corp Hgb Conc. 35.3 g/dL (33.0-37.0); Mean Corpuscular Volume 90.7 fL (80.0-94.0); Mean Platelet Volume 10.1 fL (7.4-10.4); Nucleated Red Blood Cells % 0 % (-); Platelet Count 214 10^3/uL (130-400)
[2024-06-07 11:16] LABS: Microalbumin, Random Urine 1.2 mg/dl (0.6-1.7)
[2024-06-07 12:01] LABS: Blood Urea Nitrogen 54 mg/dl (9-20); Calcium 9.1 mg/dl (8.4-10.2); Carbon Dioxide 22 mmol/L (22-30); Chloride 99 mmol/L (98-107); Glucose 99 mg/dl (70-99); Potassium 4.5 mmol/L (3.5-5.1); Sodium 138 mmol/L (135-145); eGFR 18.73
[2024-06-07 19:07] LABS: NT-proBNP 195 pg/ml
== END ==
LOC: REG 09:31
PROVIDERS: ATTENDING PHYSICIAN Nurse Practitioner Family
DX: N17.9 Acute kidney failure, unspecified (principal)
CPT/HCPCS: 36415; 80048; 81003; 81015; 82043; 82570; 83880; 85025

== ENCOUNTER 2024-06-07 15:54 | Inpatient (IN) | payer OTHER, MEDICARE, SELFPAY ==
[2024-06-07] VITALS (12 sets, daily range): BP systolic 82–128; BP diastolic 54–102; BMI 31.7; BMI 30.2
--- NOTE | 2024-06-07 13:52 | ED.GENMED ---
History of Present Illness
General
Chief Complaint: Abnormal Lab Value
Time Seen by Provider: 06/07/24 13:30
History of Present Illness
History of Present Illness:
73-year-old male presents to the emergency department for evaluation of abnormal creatinine. Patient was admitted to this hospital 05 27 through 06 03 due to expressive aphasia felt to represent a hypertensive encephalopathy with associated SHANTAL on
CKD. At the time of discharge his antihypertensive regimen was changed to include terazosin, valsartan, and HCTZ. As well as amlodipine. He followed of his primary care physician today and had routine outpatient labs showing a creatinine of 3.3,
was 2.1 at hospital discharge and 1.4 the day prior. He was also noted to be borderline hypotensive in the office and complaining of generalized weakness. He denies any complaints at present
Past History
Past History
ED Past Medical History: Cancer (Left breast cancer), GERD, HTN, Other (Sigmoid diverticulitis March 2022; chronic low back pain/lumbar DDD, narcotic dependent) and Other (BPH; prior history of pain med addiction)
ED Past Surgical History: Cholecystectomy, Orthopedic, Urological (TURP December 2019) and Other (Mastectomy-left)
Social History
Tobacco: Former smoker
Alcohol: None
Drug: Former user
Personal:
Living: with family
Employment: Retired
Family History
Family History: Other (Noncontributory)
Review of Systems
Review of Systems
Allergies reviewed?: Yes
All Other Systems: ROS reviewed and negative except as documented in HPI and ROS
Phy Exam
Physical Exam
Physical Exam:
GEN: Well appearing, NAD, WDWN
HEENT: Oral mucosa moist, no scleral icterus
Cardiac: Regular rate
Lung: No respiratory distress, no tachypnea
MSK: No gross deformity or injuries
Skin: Good color, no pallor or jaundice, no rashes
Neuro: AO x3, moves all extremities freely
Psych: Calm, cooperative
Course
Orders/Labs/Results
Orders:
Orders
06/07/24 Breakfast
Cholesterol Lowering
At Your Request: Full Participation
Does patient need a safe tray?: No
Cholesterol Lowering: Sodium, 2 Gram
06/07/24 13:49
Bladder Scan- Treatment ONCE
Comment: PVR
06/07/24 13:53
Lactated Ringers [Lr] 1,000 ml IV BOLUS
06/07/24 14:30
Venous Blood Gas Urgent
%Oxygen/Room Air: 97
06/07/24 14:34
Osmolality, Random Urine Urgent
Date Specimen was Collected: 06/07/24
Time Specimen was Collected: 14:32
Comment: ADD ON
Urinalysis Reflex To Culture Urgent
Date Specimen was Collected: 06/07/24
Time Specimen was Collected: 14:32
Urine Microscopic Reflex Cult Urgent
Urine Sodium Urgent
Date Specimen was Collected: 06/07/24
Time Specimen was Collected: 14:32
Comment: ADD ON
Urine Culture Urgent
EMILY Source: U
Specimen Description:
Date Specimen was Collected: 06/07/24
Time Specimen was Collected: 14:32
06/07/24 15:20
Admit/Transfer Patient As Directed
Co-Sign Provider:
Level of Care: Inpatient admission
Assign to:: Telemetry
Physician / Group: rocael cooley
Diagnosis: shantal
Reason for Telemetry: Other
Other Reason for Telemetry: hypotension
Date to Stop Telemetry: 06/09/24
Time to Stop Telemetry: 11:00
Reason for Hospitalization: SHANTAL
Expected length of stay greater than two midnights?: Yes
ELOS- Estimated Length of Stay in days: 3
I certify the patient meets the requirements for IP care: Yes
PRN Pain Medication Management As Directed
May give lesser potent ordered pain med per pt: Yes
preference::
Protocol:: Medication orders for pain may be administered in a
manner that supports deferring to patient preference
when the pt is:
- Requesting an ordered lesser potent pain medication.
Least to most potent pain medications are defined
as: acetaminophen < NSAID < tramadol < opioids
(morphine, oxycodone, hydromorphone).
- Requesting a lesser dose of the same medication IF
ORDERED.
- Requesting a less intrusive route of administration
if both routes are prescribed by the provider (PO <
IV).
06/07/24 15:21
Code Status As Directed
Resuscitation Status: Full Code
06/07/24 16:56
Acetaminophen [Tylenol] 1,000 mg PO Q6HPRN PRN
Bisacodyl [Dulcolax] 10 mg RECTAL [id number] PRN
Docusate W/Senna [Senokot-S] 1 tablet PO BIDPRN PRN
Gabapentin [Neurontin] 300 mg PO TIDPRN PRN
Polyethylene Glycol Powder [Miralax] 17 grams PO DAILYPRN PRN
06/07/24 16:56
NEPHROLOGY CONSULT Routine
Consulting Provider: Jennifer Swain
Was physician already notified: Yes
Activity As Directed
Activity Level: As Tolerated
Bladder Scan As Directed
Follow Bladder Retention/Intermittent Cath Algorithm?: Yes
PRN if no void in __ hours: 6
Frequency: Per Retention Algorithm
If Bladder Scan Result >: 400
then:: Straight cath
Straight Cath As Directed
Frequency: Per Retention Algorithm
Additional Instructions: straight cath as needed per acute urinary retention algorithm for 24 hrs
Additional Instructions: for bladder scan greater than 400 mL
Vital Signs As Directed
Frequency: Per unit guidelines
DX Deep Vein Thrombosis Video Routine
06/07/24 17:08
Pantoprazole [Protonix] 40 mg PO DAILYPRN PRN
06/07/24 19:00
0.9% Sodium Chloride 1000 ml [Nss] 1,000 ml IV 100 mls/hr
06/07/24 20:00
Amoxicillin 500 mg/Clav 125 mg [Augmentin 500 mg/125 mg] 1 tablet PO BID
Heparin 5,000 units SC Q12
06/07/24 22:00
Terazosin [Hytrin] 5 mg PO HS
06/08/24 06:00
Basic Metabolic Panel IN AM
Complete Blood Count/No Diff IN AM
06/08/24 08:00
Aspirin Low Dose EC [Aspir Low (Enteric Coated)] 81 mg PO DAILY
06/09/24 06:00
Basic Metabolic Panel IN AM
Complete Blood Count/No Diff IN AM
06/09/24 11:00
DC Protocol for Telemetry ONCE
06/10/24 06:00
Basic Metabolic Panel IN AM
Complete Blood Count/No Diff IN AM
06/10/24 08:00
Calcitriol [Rocaltrol] 0.25 mcg PO MoWeFr@0800
06/11/24 06:00
Basic Metabolic Panel IN AM
Complete Blood Count/No Diff IN AM
06/12/24 06:00
Basic Metabolic Panel IN AM
Complete Blood Count/No Diff IN AM
06/12/24 08:00
buprenorphine See Dose Instructions TOPICAL WE
Abnormal Lab Results
06/07/24 06/07/24
14:30 14:34
VBG pH 7.31 L
(7.32-7.43)
VBG pCO2 54 H mmHg
(35-48)
VBG HCO3 27.2 H mmol/L
(22-27)
Urine Ketones Trace A
(Negative)
Urine Bilirubin 1+ A
(Negative)
Leukocyte Esterase Rfl 1+ A
(Negative)
Urine Bacteria (Reflex) Few A
(Negative)
Vital Signs
Initial and Last Documented VS:
Initial Vital Signs
Temp Pulse Resp BP Pulse Ox
99.5 F 89 16 128/102 96
06/07/24 13:05 06/07/24 13:05 06/07/24 13:05 06/07/24 13:05 06/07/24 13:05
Last Documented Vital Signs
Temp Pulse Resp BP Pulse Ox
97.8 F 80 18 121/85 98
06/07/24 17:25 06/07/24 17:25 06/07/24 17:25 06/07/24 17:25 06/07/24 19:34
MDM/Problems Addressed
MDM/Problems Addressed:
Admit the patient for acute kidney injury. Postvoid residual bladder scan negative, I suspect there is a component of hypovolemia coupled with ARB induced glomerulonephritis causing the symptoms. Will admit to the hospitalist service for further
management
*Critical Care Note
Total Time (30-74mins, 75-104mins- exclusive of procedures): Not Applicable
ED Attending Note
-
Portions of this chart may have been created with voice recognition software.� Occasional wrong word or��sound alike� substitutions may have occurred due to the inherent limitations of voice recognition software.
Discharge Plan
Departure
Patient Disposition: Admit
Date of Disposition: 06/07/24
Time of Disposition: 15:00
Presentation/result/management discussed w/ accepting MD/DO: Hospitalist
Discharge Problem:
Acute kidney injury superimposed on CKD
Interventions
Interventions:
*Risk Screen - Suicide Last Done: 06/07/24 13:05
*General Assessment Last Done: 06/07/24 13:05
*Neglect/Abuse Screening Last Done: 06/07/24 13:05
*ED COVID-19 Vaccine History Last Done: 06/07/24 13:44
*Nursing Disposition Last Done: 06/07/24 17:00
Discharge Date and Time
Discharge Date/Time: 06/07/24 17:00
[2024-06-07 14:40] LABS: Venous Blood Gas B.E. -0.1 mmol/L (-4 to +4); Venous Blood Gas HCO3 27.2 mmol/L (22-27); Venous Blood Gas O2 Sat % 76.4 %; Venous Blood Gas pCO2 54 mmHg (35-48); Venous Blood Gas pH 7.31 (7.32-7.43); Venous Blood Gas pO2 43 mmHg (30-50)
[2024-06-07 14:46] LABS: Urine Albumin Negative (Neg - Trace); Urine Bilirubin 1+ (Negative); Urine Character Clear (Clear); Urine Color Yellow; Urine Glucose Negative (Negative); Urine Ketone Trace (Negative); Urine Leukocyte 1+ (Negative); Urine Nitrite Negative (Negative); Urine Occult Blood Negative (Negative); Urine Specific Gravity 1.025 (<1.030); Urine Urobilinogen 1+ (Neg - 1+)
--- NOTE | 2024-06-07 15:00 | HPS.HSE ---
Addendum entered and electronically signed by Edilson Denton MD 06/07/24 16:24:
I saw and examined the patient.
The ORGANIC LAB WORKER or PA's note was reviewed and I agree with the note.
Comment: 73-year-old male who was recently hospitalized with hypertensive encephalopathy came to the hospital with hypotension, SHANTAL on CKD. Currently appears oliguric. Start aggressive hydration with IV fluids. Nephrology evaluation. Bladder
scan. Monitor urine output. 1 more day of antibiotics left, continue. Discontinue hydrochlorothiazide. Hold amlodipine, losartan.
General: Well Developed, Well Nourished and No Apparent Distress
HEENT: NormoCephalic, Moist mucous membranes and Atraumatic
Respiratory: Clear
Cardiac: S1/S2 and Regular Rhythm; No Murmur or Rub
GI: Soft, Non Tender, Non Distended and Normal Bowel Sounds; No Organomegaly
Rectal: Deferred by Provider
Musculoskeletal: No Clubbing, No Cyanosis and No Edema
Skin: No Rash
Neuro: AO x 3 and Nonfocal/grossly intact
Psych: Calm
I spent a total of 77 minutes with the patient or on the floor. More than 50% of this time involved counseling and coordination of care.
Original Note:
Family Physician
-
Family Physician: SAÚL Hogan
Chief Complaint
-
elevated creatine
History of Present Illness
73-year-old male with PMH for GERD, HTN, back pain, BPH, presents to the emergency department for evaluation of abnormal creatinine. Patient was admitted to this hospital 05 27 through 06 03 due to expressive aphasia felt to represent a
hypertensive encephalopathy with associated SHANTAL on CKD. At the time of discharge HCTZ was added for the management of HTN. On discharge his creatine was 1.4, Monday his creatine was 2.1 and today his creatine was 3.3. his hctz was discontinued
on Monday. On Monday, he vomited twice, which got better with Zofran. denied abdominal pain, diarrhea or constipation. patient stated poor oral intake. denied BARGER,dizzy or syncopal episode. denied fever, chills, chest pain, sob. denied dysuria
or hematuria. his BP was low at PCP office today.
admitting for further management. patient received LR in ER. admitting for further management.
Medical History
Past Medical History
Past Medical History: Reports Other
Additional Past Medical History:
HTN
carotid artery stenosis
Adams's esophagus with dysplasia
breast cancer
nonalcoholic fatty liver disease
BPH
Past Surgical History: Reports Other
Additional Past Surgical History:
left knee replacement
right knee surgery
shoulder surgery
left mastectomy
cholecystectomy
TURP
Social History
Tobacco: Smoker
Alcohol: Occasional
Drug: None
Personal:
Living: With Family
Family History
Family History: Not pertinent
Allergies / Home Medications
Allergies reflects when Allergies were last updated in [facility].
Home Medications with original date entered in [facility]
Allergy/Medication List:
Allergies
Allergy/AdvReac Type Severity Reaction Status Date / Time
codeine Allergy Itching Verified 06/07/24 13:04
ibuprofen Allergy stomach Verified 06/07/24 13:04
pain
narcotics Allergy Patient in Uncoded 06/07/24 13:04
recovery
Home Medications
buprenorphine 15 mcg/hour weekly transdermal patch 15 mcg topical WE Pain 05/27/24
calcitriol 0.25 mcg capsule 0.25 mcg PO MOWEFR Kidney Disease 05/27/24
gabapentin 300 mg capsule 300 mg PO TIDPRN PRN neuropathy 05/27/24
omeprazole 20 mg capsule,delayed release 20 mg PO DAILYPRN PRN gi upset 05/27/24
terazosin 5 mg capsule 5 mg PO HS Urinary Issue 05/27/24
valsartan 320 mg tablet 320 mg PO DAILY Blood Pressure 05/27/24
amlodipine 10 mg tablet 10 mg PO DAILY Blood pressure #1 tab 06/03/24
amoxicillin 500 mg-potassium clavulanate 125 mg tablet 1 tab PO BID Urinary issue #14 tabs 06/03/24
aspirin 81 mg tablet,delayed release 81 mg PO DAILY Stroke #30 tabs 06/03/24
acetaminophen 500 mg tablet (Tylenol Extra Strength) 1,000 mg PO Q6HPRN PRN mild pain 06/07/24
docusate sodium 100 mg capsule (Colace) 100 mg PO BIDPRN PRN constipation 06/07/24
Review of Systems
-
Constitutional: Reports No Symptoms
EENT: Reports No Symptoms
Respiratory: Reports No Symptoms
Cardiac: Reports No Symptoms
Abdomen/GI: Reports Vomiting
: Reports No Symptoms
Musculoskeletal: Reports No Symptoms
Skin: Reports No Symptoms
Neurological: Reports No Symptoms
Endocrine: Reports No Symptoms
Hematologic/Lymphatic: Reports No Symptoms
Psych: Reports No Symptoms
Physical Exam
Vital Signs
Vital Signs
Temp Pulse Resp BP Pulse Ox
99.5 F 59 8 92/60 97
06/07/24 13:05 06/07/24 14:30 06/07/24 14:30 06/07/24 14:28 06/07/24 14:30
Physical Exam
General: Well Developed, Well Nourished and No Apparent Distress
HEENT: NormoCephalic, Moist mucous membranes and Atraumatic
Respiratory: Clear
Cardiac: S1/S2 and Regular Rhythm; No Murmur or Rub
GI: Soft, Non Tender, Non Distended and Normal Bowel Sounds; No Organomegaly
Rectal: Deferred by Provider
Musculoskeletal: No Clubbing, No Cyanosis and No Edema
Skin: No Rash
Neuro: AO x 3 and Nonfocal/grossly intact
Psych: Calm
Data Reviewed
-
Lab Data: Labs Reviewed by me
Impression/Plan
-
#acute kidney injury on CKD stage 3b
-cr 3.3
-received LR in ER
-monitor BMp in am
-normal saline continued
-bladder scan
-calcitriol continued
-nephrology consulted
##GERD, Adams's esophagus
- PPI
#hypertension
-BP soft in ER
-hold Norvasc, valsartan
#UTI
-continued amoxicillin for one more dose
-UA negative for infection.
#Chronic low back pain/lumbar DDD, narcotic dependent
- cont Bupropion patch
#HX BPH status post TURP with residual urinary retention
- on Terazosin
#neuropathy
-gabapentin continued
#Prior HX opioid dependence.
#HX Breast cancer 2014, status post left mastectomy.
#HX Fatty liver.
#HX hepatitis B.
#HX .Vitamin d deficiency.
DVT prophylaxis: Heparin
[2024-06-07 15:03] LABS: Urine Bacteria Few (Negative); Urine Red Blood Cell 0-2 /HPF (0-2)
[2024-06-07] MEDS: LR 1000 IV (15:15)
--- NOTE | 2024-06-07 17:28 | CON.MD ---
Consultation - Medical
-
Data reviewed, patient evaluated, complete nephrology consultation dictated
Assessment:
SHANTAL
Hypotension
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
Secondary hyperparathyroidism
Recent accelerated hypertension with hypertensive encephalopathy
Opiate dependent (severe lumbar disc disease) uses buprenorphine patch
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
No precipitating factors such as fever, chills, nausea, emesis, abdominal pain, chest pain, palpitations, unexplained diaphoresis, voiding issues, NSAID usage
He notes constipation
Baseline creatinine 1.1-1.2 MG/DL now 3.3 mg/DL
HCT added at recent hospitalization found to be hypotensive at PCP office
HCTZ stopped June 05
Plan:
Appears to be prerenal due to high urinary creatinine
HCTZ held June 05
Valsartan held
Amlodipine held
Terazosin continued
Follow orthostatic BPs
Receiving isotonic IV fluid which would be helpful
Presentation of overt hypotension somewhat out of proportion to the simple addition of HCTZ 25 mg to his prior regimen of valsartan 320 mg daily, terazosin 5 mg qPM, amlodipine 10 mg daily
Could there have been renin mediated surge last admission resulting in hypertensive encephalopathy? Could he have an occult catecholamine excess state, often episodic, which could result in swings in BP with hypertension and hypotension?
Will add aldosterone, plasma renin activity, plasma free metanephrines, and cortisol level to a.m. labs
--- NOTE | 2024-06-07 18:04 | PTCARENOTE ---
Patient admitted from ER into room 408-02. Reviewed use of call nichols and use of controls for TV and bed. Reviewed plan of care with patient. Patient verbalizes understanding and denies questions at this time.
[2024-06-07] MEDS: NSS 1000 IV (18:06)
[2024-06-07] MEDS: SENOKOT-S 1 TABLET PO (18:10)
[2024-06-07 18:47] LABS: Osmolality Urine 396 mOsm/kg (300-900)
[2024-06-07 18:48] LABS: Urine Sodium 55 mmol/L (30-90)
[2024-06-07] MEDS: AUGMENTIN 500 MG/125 MG 1 TABLET PO (21:34)
[2024-06-07] MEDS: HYTRIN 5 MG PO (21:35)
[2024-06-07] MEDS: HEPARIN 5000 UNITS SC (21:37)
[2024-06-08] VITALS (7 sets, daily range): BP systolic 111–146; BP diastolic 62–89
[2024-06-08] MEDS: NSS 1000 IV ×2 (04:31→14:24)
[2024-06-08] MEDS: HEPARIN 5000 UNITS SC ×2 (09:36→20:31)
[2024-06-08] MEDS: ASPIR LOW (ENTERIC COATED) 81 MG PO (09:36)
[2024-06-08 11:26] LABS: Hematocrit 34.7 % (39.0-52.0); Hemoglobin 12.2 g/dL (13.0-18.0); Mean Corp Hgb Conc. 35.2 g/dL (33.0-37.0); Mean Corpuscular Hgb 31.9 pg (27.0-31.0); Mean Corpuscular Volume 90.8 fL (80.0-94.0); Mean Platelet Volume 9.9 fL (7.4-10.4); Platelet Count 178 10^3/uL (130-400); Red Blood Cell Count 3.82 10^6/uL (4.70-6.10); White Blood Cell Count 4.2 10^3/uL (4.8-10.8)
[2024-06-08 11:33] LABS: Blood Urea Nitrogen 48 mg/dl (9-20); Carbon Dioxide 25 mmol/L (22-30); Chloride 104 mmol/L (98-107); Estimated Creatinine Clearance 38 ml/min; Glucose 101 mg/dl (70-99); Potassium 4.5 mmol/L (3.5-5.1); Sodium 142 mmol/L (135-145); eGFR 34.16
--- NOTE | 2024-06-08 12:01 | W.PN.HOSP.TC ---
Today's Communication/Plan
-
Monitor vital signs see plan
Continue monitor renal function
Monitor urine output
IVF
follow pending studies
Discussed with spouse at bedside
Assessment / Plan
Assessment / Plan
General: Well Developed, Well Nourished and No Apparent Distress
HEENT: NormoCephalic, Moist mucous membranes and Atraumatic
Respiratory: Clear
Cardiac: S1/S2 and Regular Rhythm; No Murmur or Rub
GI: Soft, Non Tender, Non Distended and Normal Bowel Sounds
Musculoskeletal: No Clubbing, No Cyanosis and No Edema
Skin: No Rash
Neuro: AO x 3 and Nonfocal/grossly intact
Psych: Calm
acute kidney injury on CKD stage 3b
-cr 3.3 on admission; now improving; 2 today
monitor
IVF
-bladder scan
-calcitriol continued
-nephrology following; secondary HTN labs pending
##GERD, Adams's esophagus
- PPI
#hypertension
Hypotensive on admission
-hold Norvasc, valsartan
Hydrochlorothiazide stopped
montior
#UTI
finished abx from last admission
-UA negative for infection.
#Chronic low back pain/lumbar DDD, narcotic dependent
- cont Bupropion patch
#HX BPH status post TURP with residual urinary retention
- on Terazosin
#neuropathy
-gabapentin continued
#Prior HX opioid dependence.
#HX Breast cancer 2015, status post left mastectomy.
#HX Fatty liver.
#HX hepatitis B.
#HX .Vitamin d deficiency.
DVT prophylaxis: Heparin
I spent a total of 52 minutes with the patient or on the floor. More than 50% of this time involved counseling and coordination of care.
Anticipated Discharge: 24 - 48 hours
Subjective/Interval History
-
Date of Service: June 08, 2024
Denies pain
Objective Data
-
Labs:
Laboratory Results
06/08/24
11:09
WBC 4.2 L
Hgb 12.2 L
Hct 34.7 L
Plt Count 178
Sodium 142
Potassium 4.5
Chloride 104
Carbon Dioxide 25
BUN 48 H
Creatinine 2.0 H
Glucose 101 H
Calcium 9.0
Vital Signs:
Vital Signs
Temp Pulse Resp BP Pulse Ox
98.3 F 62 12 111/68 98
06/08/24 11:36 06/08/24 11:36 06/08/24 11:36 06/08/24 11:36 06/08/24 11:36
I&O
06/07/24 06/08/24 06/09/24
06:59 06:59 06:59
Output Total 600 / 600
Balance -600 / -600
[2024-06-08 12:04] LABS: Cortisol, Random 6.9 ug/dl
--- NOTE | 2024-06-08 16:25 | PTCARENOTE ---
Pt AAO x3, SANCHEZ well, OOB in room, jaja well. VSS. Telemetry:NSR. On room air- pulse ox 97%, no c/o SOB. Abd large, soft, jaja PO well. Voiding mod amts clear lt mark urine in urinal. Afebrile; skin W/D/I. IVF's NSS @ 100 ml/hr infusing via Rt
AC site without sx of infiltration. Resting comfortably at present. Will continue to monitor.
--- NOTE | 2024-06-08 16:56 | W.PN.NEPH.PH ---
Today's Communication / Plan
-
IVF, labs in am
Assessment/Plan
-
Assessment:
SHANTAL
Hypotension
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
Secondary hyperparathyroidism
Recent accelerated hypertension with hypertensive encephalopathy
Opiate dependent (severe lumbar disc disease) uses buprenorphine patch
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
Plan:
SHANTAL-prerenal from hypotension, PVR only 15cc
cr improving with IVF and improving BPs
remains off all HTN meds, not to resume HCTZ in future
await secondary HTN w/u-ARR, metanephrins, catecholamines
cont Terazosin, may resuem Amlodipine if BP start to increase
likely wean off IVF by tomorrow
hold ARB till cr returns baseline
labs in am
-
-
Date of Service: June 08, 2024
CC / HPI / ROS
-
Chief Complaint:
SHANTAL
History of Present Illness:
cr better at 2
BP stable now
no fever,
Review of Systems:
no cp or sob
feels well, no dizziness
Labs
-
Labs:
WBC 4.2 10^3/uL (4.8-10.8) L 06/08/24 11:09
RBC 3.82 10^6/uL (4.70-6.10) L 06/08/24 11:09
Hgb 12.2 g/dL (13.0-18.0) L 06/08/24 11:09
Hct 34.7 % (39.0-52.0) L 06/08/24 11:09
Plt Count 178 10^3/uL (130-400) 06/08/24 11:09
Sodium 142 mmol/L (135-145) 06/08/24 11:09
Potassium 4.5 mmol/L (3.5-5.1) 06/08/24 11:09
Chloride 104 mmol/L (98-107) 06/08/24 11:09
Carbon Dioxide 25 mmol/L (22-30) 06/08/24 11:09
BUN 48 mg/dl (9-20) H 06/08/24 11:09
Creatinine 2.0 mg/dL (0.7-1.3) H 06/08/24 11:09
eGFR 34.16 06/08/24 11:09
Glucose 101 mg/dl (70-99) H 06/08/24 11:09
Calcium 9.0 mg/dl (8.4-10.2) 06/08/24 11:09
Physical Exam
-
Vital Signs:
Vital Signs
Temp Pulse Resp BP Pulse Ox
98.3 F 72 14 119/62 97
06/08/24 15:00 06/08/24 15:00 06/08/24 15:00 06/08/24 15:00 06/08/24 16:25
Cardiovascular:: Regular rate and rhythm
Respiratory:: Bilateral: CTA
Lung Excursion:: Normal
Abdomen:: Nontender and Soft
Extremity Edema:: None: Bilateral:
Bender Catheter: No
--- NOTE | 2024-06-08 17:25 | CM ---
Patient seen at bedside
IA completed
Lives at home with his in a 1 story home, 2 steps to enter
PLOF: Independent, drives
No DME
PT EVAL no needs
PCP: Rakesh Hussein
Pharmacy: [facility]
PLAN: Home, no needs
[2024-06-08] MEDS: HYTRIN 5 MG PO (21:01)
[2024-06-09 03:25] VITALS: BP 127/63
[2024-06-09 06:00] VITALS: BMI 30.7
[2024-06-09 07:38] LABS: Hemoglobin 13.2 g/dL (13.0-18.0); Mean Corp Hgb Conc. 34.7 g/dL (33.0-37.0); Mean Corpuscular Hgb 32.6 pg (27.0-31.0); Mean Corpuscular Volume 93.8 fL (80.0-94.0); Mean Platelet Volume 9.9 fL (7.4-10.4); Platelet Count 161 10^3/uL (130-400); Red Blood Cell Count 4.05 10^6/uL (4.70-6.10); Red Cell Dist. Width 12.6 % (11.5-14.5); White Blood Cell Count 4.1 10^3/uL (4.8-10.8)
[2024-06-09 07:55] VITALS: BP 193/89
[2024-06-09 08:07] LABS: Blood Urea Nitrogen 31 mg/dl (9-20); Carbon Dioxide 25 mmol/L (22-30); Chloride 107 mmol/L (98-107); Estimated Creatinine Clearance 59 ml/min; Glucose 89 mg/dl (70-99); Potassium 4.6 mmol/L (3.5-5.1); Sodium 142 mmol/L (135-145); eGFR 57.29
[2024-06-09 08:32] LABS: Cortisol, Random 12.6 ug/dl
[2024-06-09] MEDS: NORVASC 10 MG PO (08:44)
[2024-06-09] MEDS: ASPIR LOW (ENTERIC COATED) 81 MG PO (08:45)
[2024-06-09] MEDS: HEPARIN SC (08:48)
--- NOTE | 2024-06-09 09:19 | W.PN.HOSP.TC ---
Today's Communication/Plan
-
monitor vitals
see plan
start amlodipine
monitor renal function
discharge today
time of discharge 38minutes
Assessment / Plan
Assessment / Plan
General: Well Developed, Well Nourished and No Apparent Distress
HEENT: NormoCephalic, Moist mucous membranes and Atraumatic
Respiratory: Clear
Cardiac: S1/S2 and Regular Rhythm; No Murmur or Rub
GI: Soft, Non Tender, Non Distended and Normal Bowel Sounds
Musculoskeletal: No Clubbing, No Cyanosis and No Edema
Skin: No Rash
Neuro: AO x 3 and Nonfocal/grossly intact
Psych: Calm
acute kidney injury on CKD stage 3b
-cr 3.3 on admission; now improving; 1.3 today; making good urine >2500cc in past 24hrs
spoke with neophrology and they are ok with aptient going home today. he has appointment with pcp tomorrow and nephrology on monday
monitor
-bladder scan
-calcitriol continued
-nephrology following; secondary HTN labs pending
##GERD, Adams's esophagus
- PPI
#hypertension
Hypotensive on admission
now BP better. restart amlodipine. restart valsartan tonite or tomorrow
Hydrochlorothiazide stopped
montior
#UTI
finished abx from last admission
-UA negative for infection.
#Chronic low back pain/lumbar DDD, narcotic dependent
- cont Bupropion patch
#HX BPH status post TURP with residual urinary retention
- on Terazosin
#neuropathy
-gabapentin continued
#Prior HX opioid dependence.
#HX Breast cancer 2014, status post left mastectomy.
#HX Fatty liver.
#HX hepatitis B.
#HX .Vitamin d deficiency.
DVT prophylaxis: Heparin
Anticipated Discharge: Today
Subjective/Interval History
-
Date of Service: June 09, 2024
denies pain
Objective Data
-
Labs:
Laboratory Results
06/09/24
06:35
WBC 4.1 L
Hgb 13.2
Hct 38.0 L
Plt Count 161
Sodium 142
Potassium 4.6
Chloride 107
Carbon Dioxide 25
BUN 31 H
Creatinine 1.3
Glucose 89
Calcium 9.0
Vital Signs:
Vital Signs
Temp Pulse Resp BP Pulse Ox
98.4 F 101 14 169/91 97
06/09/24 07:55 06/09/24 08:44 06/09/24 07:55 06/09/24 08:44 06/09/24 07:55
I&O
06/08/24 06/09/24 06/10/24
06:59 06:59 06:59
Intake Total 1700 / 1700
Output Total 2880 / 2880
Balance -1180 / -1180
--- NOTE | 2024-06-09 09:25 | W.DCSUMMARY ---
Discharge Summary
Discharge Data
Date of Admission: 06/07/24
Date of Discharge: 06/09/24
-
Pending Results: No
Hospital Course
73-year-old male with past medical history of hypertension, osteoarthritis, chronic back pain, BPH, neuropathy, opioid dependence, breast cancer, fatty liver, hepatitis B, vitamin D deficiency, CKD, GERD came to the hospital with acute kidney injury
with creatinine of 3.3. Patient symptoms were likely thought to be secondary to significant hypotension and starting of hydrochlorothiazide. His hydrochlorothiazide was discontinued and he was started on aggressive fluid resuscitation. His
creatinine continue to improve and his discharge creatinine was 1.3. Initially he was also oliguric which over time continue to improve. He was seen by nephrology throughout hospitalization. Once his blood pressure continued to improve then his
amlodipine was restarted. He was also instructed to restart valsartan on discharge. Since his symptoms continue to improve including his creatinine, he was then discharged home with instructions to follow-up with his PCP and nephrology outpatient.
Discharge Plan
-
Patient Disposition: Home (Routine Discharge)
Discharge Diagnosis/Procedures: Acute kidney Injury on CKD
Hypotension
Diet: As tolerated
Activity: As tolerated
Driving Restrictions: As prior to admission
Bathing Restrictions: None
Blood Work: BMP next week with PCP
Activity Restrictions/Additional Instructions:
restart valsartan tonite or tomorrow once BP>140/90
Referrals:
Peter Carr CRNP [Family Provider] - in less than 1 week
Raheel Kilgore DO [Active] - in one week
Prescriptions:
Continued
terazosin 5 mg capsule
5 mg PO HS
valsartan 320 mg tablet
320 mg PO DAILY
calcitriol 0.25 mcg capsule
0.25 mcg PO MOWEFR
buprenorphine 15 mcg/hour patch weekly
15 mcg topical WE
gabapentin 300 MG capsule
300 mg PO TIDPRN PRN (Reason: neuropathy)
omeprazole 20 MG capsule,delayed release(DR/EC)
20 mg PO DAILYPRN PRN (Reason: gi upset)
aspirin 81 mg Tablet,Delayed Release (Dr/Ec)
81 mg PO DAILY Qty: 30 0RF
amlodipine 10 MG tablet
10 mg PO DAILY Qty: 1 0RF
acetaminophen [Tylenol Extra Strength] 500 mg Tablet
1,000 mg PO Q6HPRN PRN (Reason: mild pain)
docusate sodium [Colace] 100 mg Capsule
100 mg PO BIDPRN PRN (Reason: constipation)
Discontinued
amoxicillin-pot clavulanate 500-125 mg tablet
1 tab PO BID Qty: 14 0RF
Discharge Orders:
Discharge Patient (As Directed); Ordered 06/09/24
Ordered By: Edilson Denton
Discharge Date and Time
Discharge Date/Time: 06/09/24 11:10
Print Language: HAITIAN
--- NOTE | 2024-06-09 10:12 | W.PN.NEPH.PH ---
Today's Communication / Plan
-
see plan
Assessment/Plan
-
Assessment:
SHANTAL
Hypotension
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
Secondary hyperparathyroidism
Recent accelerated hypertension with hypertensive encephalopathy
Opiate dependent (severe lumbar disc disease) uses buprenorphine patch
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
Plan:
SHANTAL-prerenal from hypotension, PVR only 15cc
cr improving with IVF and improving BPsm cr almost to baseline 1.3
not to resume HCTZ in future
await secondary HTN w/u-ARR, metanephrins, catecholamines
BP are increasing trend-cont Terazosin, resume Amlodipine and ARB
if his BP remains high >160s at home ok to take extra dose Terazosin till seen by Dr Kilgore on Monday
d/w pt and
ok to d/c today
-
-
Date of Service: June 09, 2024
CC / HPI / ROS
-
Chief Complaint:
SHANTAL
History of Present Illness:
cr better at 1.3
BP increasing trend
no fever,
Review of Systems:
no cp or sob
feels well, no dizziness
Labs
-
Labs:
WBC 4.1 10^3/uL (4.8-10.8) L 06/09/24 06:35
RBC 4.05 10^6/uL (4.70-6.10) L 06/09/24 06:35
Hgb 13.2 g/dL (13.0-18.0) 06/09/24 06:35
Hct 38.0 % (39.0-52.0) L 06/09/24 06:35
Plt Count 161 10^3/uL (130-400) 06/09/24 06:35
Sodium 142 mmol/L (135-145) 06/09/24 06:35
Potassium 4.6 mmol/L (3.5-5.1) 06/09/24 06:35
Chloride 107 mmol/L (98-107) 06/09/24 06:35
Carbon Dioxide 25 mmol/L (22-30) 06/09/24 06:35
BUN 31 mg/dl (9-20) H 06/09/24 06:35
Creatinine 1.3 mg/dL (0.7-1.3) 06/09/24 06:35
eGFR 57.29 06/09/24 06:35
Glucose 89 mg/dl (70-99) 06/09/24 06:35
Calcium 9.0 mg/dl (8.4-10.2) 06/09/24 06:35
Physical Exam
-
Vital Signs:
Vital Signs
Temp Pulse Resp BP Pulse Ox
98.4 F 101 14 169/91 97
06/09/24 07:55 06/09/24 08:44 06/09/24 07:55 06/09/24 08:44 06/09/24 07:55
Cardiovascular:: Regular rate and rhythm
Respiratory:: Bilateral: CTA
Lung Excursion:: Normal
Abdomen:: Nontender and Soft
Extremity Edema:: None: Bilateral:
Bender Catheter: No
--- NOTE | 2024-06-09 10:52 | CM ---
Addendum entered by Mayi Beasley 06/09/24 10:56:
IMM explained to patient.
Original Note:
Patient discharge to home today.
No needs -
PLAN: Discharged home, no needs
family transport home
[2024-06-11 11:41] LABS: Aldosterone, Serum 10.9 ng/dL; Aldosterone/Renin Activ Ratio 0.5 ratio (<=25.0); Renin Activity Results 20.7 ng/mL/hr
== END 2024-06-09 11:10 | disposition home or self-care (01) | DRG 683 ==
LOC: 4 EAST ACU 15:54
PROVIDERS: Internal Medicine; Physician Assistant; Registered Nurse; ADMITTING PHYSICIAN Internal Medicine; EMERGENCY PHYSICIAN Student in an Organized Health Care Education/Training Program; FAMILY PHYSICIAN Nurse Practitioner Family; OTHER PHYSICIAN Specialist
DX: N17.9 Acute kidney failure, unspecified (principal); F11.20 Opioid dependence, uncomplicated; N39.0 Urinary tract infection, site not specified; N28.0 Ischemia and infarction of kidney; N25.81 Secondary hyperparathyroidism of renal origin; N18.32 Chronic kidney disease, stage 3b; I12.9 Hypertensive chronic kidney disease with stage 1 through stage 4 chronic kidney disease, or unspecified chronic kidney disease; K21.9 Gastro-esophageal reflux disease without esophagitis; G89.29 Other chronic pain; M51.369 Other intervertebral disc degeneration, lumbar region without mention of lumbar back pain or lower extremity pain; N40.1 Benign prostatic hyperplasia with lower urinary tract symptoms; I95.9 Hypotension, unspecified; M54.9 Dorsalgia, unspecified; I65.29 Occlusion and stenosis of unspecified carotid artery; K22.719 Barrett's esophagus with dysplasia, unspecified; K76.0 Fatty (change of) liver, not elsewhere classified; F17.200 Nicotine dependence, unspecified, uncomplicated; R33.8 Other retention of urine; E55.9 Vitamin D deficiency, unspecified; G62.9 Polyneuropathy, unspecified; K59.00 Constipation, unspecified; F10.21 Alcohol dependence, in remission; Z96.652 Presence of left artificial knee joint; Z90.12 Acquired absence of left breast and nipple; Z85.3 Personal history of malignant neoplasm of breast; Z88.5 Allergy status to narcotic agent; Z88.6 Allergy status to analgesic agent; Z90.79 Acquired absence of other genital organ(s); Z81.1 Family history of alcohol abuse and dependence; Z82.49 Family history of ischemic heart disease and other diseases of the circulatory system
CPT/HCPCS: 51798; 80048; 81003; 81015; 82088; 82533; 82805; 83835; 83935; 84244; 84300; 85027; 87086; 96360; 96361; 99285

== ENCOUNTER → 2024-06-15 08:04 | Outpatient (REF) | payer OTHER, MEDICARE, SELFPAY ==
[2024-06-15 09:10] LABS: Blood Urea Nitrogen 23 mg/dl (9-20); Calcium 9.4 mg/dl (8.4-10.2); Carbon Dioxide 25 mmol/L (22-30); Chloride 103 mmol/L (98-107); Glucose 96 mg/dl (70-99); Potassium 5.1 mmol/L (3.5-5.1); Sodium 142 mmol/L (135-145); eGFR 41.52
[2024-06-15 10:09] LABS: Free T4 1.87 ng/dl (0.78-2.19)
== END ==
LOC: REG 08:04
PROVIDERS: ATTENDING PHYSICIAN Nurse Practitioner Family
DX: I10 Essential (primary) hypertension (principal); R68.89 Other general symptoms and signs
CPT/HCPCS: 36415; 80048; 84439; 84443

== ENCOUNTER 2024-07-22 15:34 | Inpatient (IN) | payer OTHER, MEDICARE, SELFPAY ==
[2024-07-20] VITALS (15 sets, daily range): BP systolic 113–214; BP diastolic 76–158; BMI 31.1; BMI 30.2
--- NOTE | 2024-07-20 13:28 | ED.GENMED ---
History of Present Illness
<DO Akilah Caldera Last Filed: 07/20/24 15:27>
General
Chief Complaint: Change in Mental Status
Source: patient and spouse
Exam Limitations: altered mental status
Time Seen by Provider: 07/20/24 13:12
History of Present Illness
History of Present Illness:
73-year-old male who presents with lethargy and change in mental status. noticed that he just could not seem to be quite himself. He has similar event in the recent past. Acute renal failure and uncontrolled hypertension. Patient states she
just feels weak. states that he also has had nausea, vomiting and diarrhea. No reported fevers. No hematemesis. No chest pain.
Past History
<Jose Alberto Suggs DO - Last Filed: 07/20/24 15:27>
Past History
ED Past Medical History: Cancer (Left breast cancer), GERD, HTN, Other (Sigmoid diverticulitis March 2022; chronic low back pain/lumbar DDD, narcotic dependent) and Other (BPH; prior history of pain med addiction)
ED Past Surgical History: Cholecystectomy, Orthopedic, Urological (TURP December 2019) and Other (Mastectomy-left)
Social History
Tobacco: Former smoker
Alcohol: None
Drug: Former user
Personal:
Living: with family
Employment: Retired
Family History
Family History: Other (Noncontributory)
Phy Exam
<DO Akilah Caldera Last Filed: 07/20/24 15:27>
Physical Exam
Physical Exam:
CONSTITUTIONAL Patient alert and oriented to person, place and time. Well-appearing. Vital signs reviewed. 99.8 on exam. Blood pressure 179/138 on exam
HEAD atraumatic, normocephalic.
EYES eyelids normal to inspection, Extraocular muscles intact, Conjunctiva normal, Sclera normal.
NECK normal range of motion, Trachea midline, no jugular venous distention.
RESPIRATORY CHEST No respiratory distress noted, Chest expansion equal, Bilateral breath sounds clear.
CARDIOVASCULAR regular rate and rhythm, Heart sounds normal.
ABDOMEN abdomen nontender, Bowel sounds normal. No distention.
BACK normal inspection, no obvious deformities
UPPER EXTREMITY range of motion normal, Motor strength normal, no cyanosis, no edema.
LOWER EXTREMITY range of motion normal, Motor strength normal, no cyanosis, no edema.
NEURO no focal deficits, cranial nerves intact, mild word finding difficulty
SKIN skin warm, dry, and normal in color.
Course
<Joes Alberto Suggs, DO - Last Filed: 07/20/24 15:27>
Orders/Labs/Results
Orders:
Orders
07/20/24 13:18
CT Head W/o Iv Contrast Urgent
Comment:
Reason For Exam: change in MS, uncontrolled HTN
07/20/24 13:31
Labetalol HCl [Trandate] 10 mg IV NOW STA
07/20/24 13:33
Cardiac Monitoring- Treatment ONCE
Ondansetron Injectable [Zofran] 4 mg .ROUTE .STK-MED ONE
07/20/24 13:34
Electrocardiogram (*1) Stat
Reason for Study: Other
Other Reason for Exam: neuro symptoms
EKG- Treatment ONCE
07/20/24 13:54
COVID-19 Antigen Urgent
Source: Nasal Swab
Urinalysis Reflex To Culture Urgent
Date Specimen was Collected: 07/20/24
Time Specimen was Collected: 13:50
Urine Microscopic Reflex Cult Urgent
Influenza A+B Rapid Molecular Urgent
EMILY Source: Nasal Swab
Specimen Description:
07/20/24 14:48
Complete Blood Count/With Diff Urgent
Comprehensive Metabolic Panel Urgent
Lactic Acid Urgent
07/20/24 14:50
Ondansetron Injectable [Zofran] 4 mg IV NOW STA
07/20/24 15:42
0.9% Sodium Chloride 500 ml [Nss] 500 ml IV BOLUS
07/20/24 16:10
Labetalol HCl [Trandate] 10 mg IV NOW STA
Abnormal Lab Results
07/20/24 07/20/24
13:54 14:48
RBC 4.37 L 10^6/uL
(4.70-6.10)
MCH 31.8 H pg
(27.0-31.0)
Abs Immat Gran (auto) 0.1 H 10^3/uL
(0-0.05)
Absolute Lymphs (auto) 0.6 L 10^3/uL
(1.2-3.4)
Immature Gran % 0.8 H %
(0-0.5)
Neutrophils % 81.6 H %
(42.2-75.2)
Lymphocytes % 8.4 L %
(20.5-51.1)
Glucose 116 H mg/dl
(70-99)
Total Bilirubin 2.3 H mg/dl
(0.2-1.3)
Urine Ketones 3+ A
(Negative)
Ur Occult Blood Reflex Trace A
(Negative)
Urine RBC 3-6 A /HPF
(0-2)
Urine Albumin (Reflex) 2+ A
(Neg - Trace)
07/20/24 14:48
07/20/24 14:48
Vital Signs
Initial and Last Documented VS:
Initial Vital Signs
BP
174/116
07/20/24 12:42
Last Documented Vital Signs
Temp Pulse Resp BP Pulse Ox
37.2 C 92 12 153/95 98
07/20/24 12:56 07/20/24 16:49 07/20/24 16:49 07/20/24 16:49 07/20/24 14:14
<Teo Mayer, DO - Last Filed: 07/20/24 17:05>
Orders/Labs/Results
Orders:
Orders
07/20/24 13:18
CT Head W/o Iv Contrast Urgent
Comment:
Reason For Exam: change in MS, uncontrolled HTN
07/20/24 13:31
Labetalol HCl [Trandate] 10 mg IV NOW STA
07/20/24 13:33
Cardiac Monitoring- Treatment ONCE
Ondansetron Injectable [Zofran] 4 mg .ROUTE .STK-MED ONE
07/20/24 13:34
Electrocardiogram (*1) Stat
Reason for Study: Other
Other Reason for Exam: neuro symptoms
EKG- Treatment ONCE
07/20/24 13:54
COVID-19 Antigen Urgent
Source: Nasal Swab
Urinalysis Reflex To Culture Urgent
Date Specimen was Collected: 07/20/24
Time Specimen was Collected: 13:50
Urine Microscopic Reflex Cult Urgent
Influenza A+B Rapid Molecular Urgent
EMILY Source: Nasal Swab
Specimen Description:
07/20/24 14:48
Complete Blood Count/With Diff Urgent
Comprehensive Metabolic Panel Urgent
Lactic Acid Urgent
07/20/24 14:50
Ondansetron Injectable [Zofran] 4 mg IV NOW STA
07/20/24 15:42
0.9% Sodium Chloride 500 ml [Nss] 500 ml IV BOLUS
07/20/24 16:10
Labetalol HCl [Trandate] 10 mg IV NOW STA
Abnormal Lab Results
07/20/24 07/20/24
13:54 14:48
RBC 4.37 L 10^6/uL
(4.70-6.10)
MCH 31.8 H pg
(27.0-31.0)
Abs Immat Gran (auto) 0.1 H 10^3/uL
(0-0.05)
Absolute Lymphs (auto) 0.6 L 10^3/uL
(1.2-3.4)
Immature Gran % 0.8 H %
(0-0.5)
Neutrophils % 81.6 H %
(42.2-75.2)
Lymphocytes % 8.4 L %
(20.5-51.1)
Glucose 116 H mg/dl
(70-99)
Total Bilirubin 2.3 H mg/dl
(0.2-1.3)
Urine Ketones 3+ A
(Negative)
Ur Occult Blood Reflex Trace A
(Negative)
Urine RBC 3-6 A /HPF
(0-2)
Urine Albumin (Reflex) 2+ A
(Neg - Trace)
07/20/24 14:48
07/20/24 14:48
Vital Signs
Initial and Last Documented VS:
Initial Vital Signs
BP
174/116
07/20/24 12:42
Last Documented Vital Signs
Temp Pulse Resp BP Pulse Ox
37.2 C 92 12 153/95 98
07/20/24 12:56 07/20/24 16:49 07/20/24 16:49 07/20/24 16:49 07/20/24 14:14
<Jose Alberto Suggs DO - Last Filed: 07/20/24 15:27>
MDM/Problems Addressed
Differential Diagnosis Includes:
Not limited to acute renal failure, renal artery stenosis, CVA, electrolyte disturbance, gastroenteritis, acute coronary syndrome
MDM/Problems Addressed:
Severe acute uncontrolled hypertension, acute change in mental status
<Jose Alberto Suggs DO - Last Filed: 07/20/24 15:27>
*Pulse Oximetry
Patient hypoxic: no
*EKG
Interpreted by ED Provider?: Yes
Interpretation: normal
Rate: normal
[place]: normal axis
Ischemia: non-specific ST changes
*Sampler And Test Preparer Interpretation
Rate: normal
Interpretation: normal
Rhythm: sinus
*Critical Care Note
Total Time (30-74mins, 75-104mins- exclusive of procedures): Not Applicable
Data Reviewed
Review of Other/Old Records Reveals: Labs and Discharge Summary (Previous discharge summary reviewed showing acute renal failure)
Source: patient and significant other
<Teo Mayer, DO - Last Filed: 07/20/24 17:05>
Update Note
Update Note:
Patient's white count and hemoglobin are normal, chemistries including renal function are unremarkable. Lactic was 0.9. Total bili slightly elevated 2.3 but remainder of LFTs are normal. Urinalysis shows 3+ ketones therefore IV fluids have been
ordered. No evidence of infection on the urinalysis. COVID-negative/flu negative. CT head shows no acute abnormality, blood pressure has improved now down to 150s over 90s. He was given a dose of labetalol earlier. I did order some IV fluids as
he does have 3+ ketones.
ED Attending Note
<Jose Alberto Suggs, DO - Last Filed: 07/20/24 15:27>
-
Portions of this chart may have been created with voice recognition software.� Occasional wrong word or��sound alike� substitutions may have occurred due to the inherent limitations of voice recognition software.
Discharge Plan
Departure
Prescriptions:
No Action
terazosin 5 mg capsule
5 mg PO HS
valsartan 320 mg tablet
320 mg PO DAILY
calcitriol 0.25 mcg capsule
0.25 mcg PO MOWEFR
buprenorphine 15 mcg/hour patch weekly
15 mcg topical WE
gabapentin 300 MG capsule
300 mg PO TIDPRN PRN (Reason: neuropathy)
omeprazole 20 MG capsule,delayed release(DR/EC)
20 mg PO DAILYPRN PRN (Reason: gi upset)
aspirin 81 mg Tablet,Delayed Release (Dr/Ec)
81 mg PO DAILY Qty: 30 0RF
amlodipine 10 MG tablet
10 mg PO DAILY Qty: 1 0RF
acetaminophen [Tylenol Extra Strength] 500 mg Tablet
1,000 mg PO Q6HPRN PRN (Reason: mild pain)
docusate sodium [Colace] 100 mg Capsule
100 mg PO BIDPRN PRN (Reason: constipation)
Referrals:
UNKNOWN - PT NOT,INTERVIEWE [Family Provider] -
Interventions
Interventions:
*Risk Screen - Suicide Last Done: 07/20/24 12:56
*General Assessment Last Done: 07/20/24 12:56
*Neglect/Abuse Screening Last Done: 07/20/24 12:56
ED- Fall Risk Assessment Last Done: 07/20/24 12:56
ED- Pulmonary Assessment Last Done: 07/20/24 14:15
ED- Neurological Assessment Last Done: 07/20/24 14:15
ED- Cardiac Assessment Last Done: 07/20/24 14:15
Discharge Date and Time
Print Language: GERMAN
--- NOTE | 2024-07-20 14:19 | EDRN ---
Could not perform the swallowing eval due to patient feeling very nauseous and the challenge of getting an IV
IV team at bedside, unable to get an IV. Dr. Suggs inserting an US IV.
--- NOTE | 2024-07-20 14:32 | EDRN ---
Dr. Suggs was unable to place US IV, IV team at the bedside to insert a midline. Unable to get any BPs at this time, since patient's L arm has a limb alert due to mastectomy
[2024-07-20 14:42] LABS: Urine Albumin 2+ (Neg - Trace); Urine Bilirubin Negative (Negative); Urine Character Clear (Clear); Urine Color Yellow; Urine Glucose Negative (Negative); Urine Ketone 3+ (Negative); Urine Leukocyte Negative (Negative); Urine Nitrite Negative (Negative); Urine Occult Blood Trace (Negative); Urine Specific Gravity 1.015 (<1.030); Urine Urobilinogen Negative (Neg - 1+)
[2024-07-20 14:46] LABS: COVID-19 Antigen Negative (Negative)
[2024-07-20] MEDS: TRANDATE 10 MG IV (14:51)
[2024-07-20] MEDS: ZOFRAN 4 MG IV ×2 (14:51→17:08)
[2024-07-20 15:11] LABS: Urine Squamous Cell 0-2 /LPF (Few); Urine Urothelial Cell 0-2 /LPF (FEW)
[2024-07-20 15:12] LABS: Urine White Cell 0-2 /HPF (0-5)
[2024-07-20 15:12] LABS: Lactic Acid 0.9 mmol/L (0.7-2.0)
[2024-07-20 15:15] LABS: % Basophils 0.3 % (0-2); % Eosinophils 0.2 % (0-6); % Immature Granulocytes 0.8 % (0-0.5); % Lymphocytes 8.4 % (20.5-51.1); % Monocytes 8.7 % (1.7-9.3); % Neutrophils 81.6 % (42.2-75.2); Absolute Immature Granulocytes 0.1 10^3/uL (0-0.05); Absolute Lymphocytes 0.6 10^3/uL (1.2-3.4); Absolute Monocytes 0.6 10^3/uL (0.1-0.6); Absolute Neutrophils 5.4 10^3/uL (1.4-6.5); Hematocrit 39.6 % (39.0-52.0); Hemoglobin 13.9 g/dL (13.0-18.0); Mean Corp Hgb Conc. 35.1 g/dL (33.0-37.0); Mean Corpuscular Hgb 31.8 pg (27.0-31.0); Mean Corpuscular Volume 90.6 fL (80.0-94.0); Nucleated Red Blood Cells % 0 % (-); Platelet Count 164 10^3/uL (130-400); Red Blood Cell Count 4.37 10^6/uL (4.70-6.10); Red Cell Dist. Width 12.8 % (11.5-14.5); White Blood Cell Count 6.6 10^3/uL (4.8-10.8)
[2024-07-20 15:26] LABS: ALT (SGPT) 24 U/L (0-50); AST (SGOT) 27 U/L (17-59); Albumin 4.7 g/dl (3.5-5.0); Alkaline Phosphatase 88 U/L (38-126); Blood Urea Nitrogen 17 mg/dl (9-20); Calcium 9.4 mg/dl (8.4-10.2); Carbon Dioxide 22 mmol/L (22-30); Chloride 103 mmol/L (98-107); Estimated Creatinine Clearance 70 ml/min; Glucose 116 mg/dl (70-99); Potassium 3.8 mmol/L (3.5-5.1); Sodium 139 mmol/L (135-145); Total Bilirubin 2.3 mg/dl (0.2-1.3); Total Protein 7.5 g/dl (6.3-8.2); eGFR > 60.00
[2024-07-20] MEDS: NSS 500 IV (16:41)
--- NOTE | 2024-07-20 17:08 | HPS.HSE ---
Family Physician
-
Family Physician: INTER[facility] UNKNOWN - PT NOT
Chief Complaint
-
Lethargy
History of Present Illness
73-year-old male with past medical history for hypertension, carotid artery stenosis, Adams's esophagus, breast cancer, BPH presented to us with nausea vomiting diarrhea to Monday. Today he noted very lethargic and very weak. Patient
denied any fever, chills, chest pain, short of breath. Patient denied any headache, dizzy, syncope. Patient denied any abdominal pain. Patient denied dysuria hematuria.
Patient was noted hypotensive in ER. Received 2 doses of labetalol, normal saline, Zofran in ER. Admitting for further management
Medical History
Past Medical History
Past Medical History: Reports Other
Additional Past Medical History:
Left breast cancer
GERD
Hypertension
Sigmoid diverticulitis has chronic lower back pain
BPH
Past Surgical History: Reports Other
Additional Past Surgical History:
Cholecystectomy
Tarp
Left mastectomy
Social History
Tobacco: Non-smoker
Alcohol: None
Drug: None
Personal:
Living: With Family
Family History
Family History: Not pertinent
Allergies / Home Medications
Allergies reflects when Allergies were last updated in [facility].
Home Medications with original date entered in [facility]
Allergy/Medication List:
Allergies
Allergy/AdvReac Type Severity Reaction Status Date / Time
codeine Allergy Itching Verified 07/20/24 12:56
ibuprofen Allergy stomach Verified 07/20/24 12:56
pain
narcotics Allergy Patient in Uncoded 06/07/24 13:04
recovery
Home Medications
buprenorphine 15 mcg/hour weekly transdermal patch 15 mcg topical WE Pain 05/27/24
calcitriol 0.25 mcg capsule 0.25 mcg PO MOWEFR Kidney Disease 05/27/24
gabapentin 300 mg capsule 300 mg PO TIDPRN PRN neuropathy 05/27/24
omeprazole 20 mg capsule,delayed release 20 mg PO DAILYPRN PRN gi upset 05/27/24
terazosin 5 mg capsule 5 mg PO HS Urinary Issue 05/27/24
valsartan 320 mg tablet 160 mg PO DAILY Blood Pressure 05/27/24
amlodipine 10 mg tablet 10 mg PO DAILY Blood pressure #1 tab 06/03/24
aspirin 81 mg tablet,delayed release 81 mg PO DAILY Stroke #30 tabs 06/03/24
acetaminophen 500 mg tablet (Tylenol Extra Strength) 1,000 mg PO Q6HPRN PRN mild pain 06/07/24
docusate sodium 100 mg capsule (Colace) 100 mg PO BIDPRN PRN constipation 06/07/24
Review of Systems
-
Constitutional: Reports No Symptoms
EENT: Reports No Symptoms
Respiratory: Reports No Symptoms
Cardiac: Reports No Symptoms
Abdomen/GI: Reports Nausea, Vomiting and Diarrhea
: Reports No Symptoms
Musculoskeletal: Reports No Symptoms
Skin: Reports No Symptoms
Neurological: Reports Weakness
Endocrine: Reports No Symptoms
Hematologic/Lymphatic: Reports No Symptoms
Psych: Reports No Symptoms
Physical Exam
Vital Signs
Vital Signs
Temp Pulse Resp BP Pulse Ox
99 F 92 12 153/95 98
07/20/24 12:56 07/20/24 16:49 07/20/24 16:49 07/20/24 16:49 07/20/24 14:14
Physical Exam
General: Well Developed, Well Nourished and No Apparent Distress
HEENT: NormoCephalic, Moist mucous membranes and Atraumatic
Respiratory: Clear
Cardiac: S1/S2 and Regular Rhythm; No Murmur or Rub
GI: Soft, Non Tender, Non Distended and Normal Bowel Sounds; No Organomegaly
Rectal: Deferred by Provider
Musculoskeletal: No Clubbing, No Cyanosis and No Edema
Skin: No Rash
Neuro: AO x 3 and Nonfocal/grossly intact
Psych: Calm
Laboratory Results
-
07/20/24 14:48
07/20/24 14:48
Laboratory Results
Lactic Acid 0.9 mmol/L (0.7-2.0) 07/20/24 14:48
Total Bilirubin 2.3 mg/dl (0.2-1.3) H 07/20/24 14:48
AST 27 U/L (17-59) 07/20/24 14:48
ALT 24 U/L (0-50) 07/20/24 14:48
Alkaline Phosphatase 88 U/L (38-126) 07/20/24 14:48
Data Reviewed
-
Lab Data: Labs Reviewed by me
Impression/Plan
-
#metabolic encephalopathy / Lethargy/weakness likely from diarrhea and vomiting
-UA negative
-COVID-negative
-CT head negative for acute findings
-EKG with normal sinus rhythm
-Flu negative
-Physical therapy consulted
# Nausea/vomiting/diarrhea
-Resolved
# Hypertension emergency
-BP better with labetalol
-Continue Norvasc and valsartan with hold parameters
# Chronic kidney disease
-Calcitriol continued
##GERD, Adams's esophagus
- PPI
#Chronic low back pain/lumbar DDD, narcotic dependent
- cont Bupropion patch
#HX BPH status post TURP with residual urinary retention
- on Terazosin
#neuropathy
-gabapentin continued
#Prior HX opioid dependence.
#HX Breast cancer 2014, status post left mastectomy.
#HX Fatty liver.
#HX hepatitis B.
#HX .Vitamin d deficiency.
DVT prophylaxis: Heparin
CODE STATUS
-Full code
--- NOTE | 2024-07-20 18:40 | W.PN.UPDATE ---
Update Note
Progress Note Update
This note serves as an addendum to the H&P by group art supervisor DONALD Katlin BROWN
HPI
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
seen at ER :
- acute onset of N/V, non bloody loose BMs on to Monday : denied recent ABx use, contact exposure,recent travelling
- noted he is very lethargic and very weak.
- Patient was noted BP 200s/ 118 @ ER gave 2 doses of labetalol, normal saline, Zofran in ER.
- Current BP is 153/95
ROS:
- denied any fever, chills, chest pain, short of breath.
- denied any headache, dizzy, syncope
- denied any abdominal pain.
- denied dysuria hematuria.
PHX
Left breast cancer s/p Left mastectomy
GERD
Hypertension
Sigmoid diverticulitis has chronic lower back pain
BPH s/p TURP
Cholecystectomy
Vital Signs
Temp Pulse Resp BP Pulse Ox
99 F 92 12 153/95 98
07/20/24 12:56 07/20/24 16:49 07/20/24 16:49 07/20/24 16:49 07/20/24 14:14
PE
General: No Apparent Distress, alert interactive appropraiely
HEENT: Moist mucous membranes and Atraumatic
Respiratory: Clear
Cardiac: S1/S2 and Regular Rhythm; No Murmur or Rub
GI: Soft, Non Tender, Non Distended and Normal Bowel Sounds
Rectal: Deferred by Provider
Musculoskeletal: No Edema
Skin: No Rash
Neuro: AO x 3 and Nonfocal/grossly intact
Psych: Calm
Laboratory Tests
05/27/24
17:36
WBC 6.6
Creatinine 1.2
eGFR > 60.00
Total Bilirubin 2.8 H
NEG UA
NEG COVID
NEG Flu
NEG HCT
EKG
NORMAL SINUS RHYTHM
INFERIOR INFARCT (CITED ON OR BEFORE 29-MAY-2024)
ABNORMAL ECG
WHEN COMPARED WITH ECG OF 30-MAY-2024 06:43,
NO SIGNIFICANT CHANGE WAS FOUND
Last hospitalist admission: Date of Admission: 06/07/24 - Date of Discharge: 06/09/24
DC Dxs
SHANTAL on CKD
Hypotension
ASSESSMENT & PLAN
Weakness & Lethargy is likely due to recent acute GE likly virus vs HTN encephalaopthy
No more N/V/D
So far unremarkable w/u as above
Denied recent ABx use, contact exposure,recent travelling
- IV NS 60/H fo 1 L
- PT /OT
- CRM consult
HTN urgency vs.emergency
Recent accelerated hypertension with hypertensive encephalopathy
- BP better with labetalol
- Continue Norvasc and valsartan with hold parameters
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
Secondary hyperparathyroidism
Opiate dependent (severe lumbar disc disease) uses buprenorphine patch
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
GERD, Adams's esophagus
- PO PPI
HX Chronic LBP /lumbar DDD: narcotic dependent
- cont. Bupropion patch
HX BPH status post TURP with residual urinary retention
- on Terazosin
HX Neuropathy
- gabapentin continued
Chr medical condition
HX Breast cancer 2014, status post left mastectomy.
HX Fatty liver.
HX hepatitis B.
HX .Vitamin d deficiency.
DVT Px: SQH
Full code
OBS MS
[2024-07-20] MEDS: HEPARIN 5000 UNITS SC (20:59)
[2024-07-20] MEDS: NSS 1000 IV (20:59)
[2024-07-20] MEDS: TYLENOL 650 MG PO (21:00)
[2024-07-20] MEDS: HYTRIN 5 MG PO (21:26)
[2024-07-21] MEDS: ZOFRAN 4 MG IV ×3 (04:25→20:55)
[2024-07-21 06:00] VITALS: BMI 30.2
[2024-07-21 08:07] VITALS: BP 165/97
[2024-07-21] MEDS: DIOVAN 160 MG PO (08:25)
[2024-07-21] MEDS: ASPIR LOW (ENTERIC COATED) 81 MG PO (08:25)
[2024-07-21] MEDS: HEPARIN 5000 UNITS SC ×2 (08:26→20:56)
[2024-07-21] MEDS: PROTONIX 40 MG PO (08:30)
--- NOTE | 2024-07-21 12:47 | W.PN.HOSP.TC ---
Today's Communication/Plan
-
trops
monitor bp
f/u bili, direct bili
MR Brain
Norovirus, stool cultures
XR Abd
Ammonia level - for ?ams
Assessment / Plan
Assessment / Plan
#metabolic encephalopathy / Lethargy/weakness
-Possible Viral illness although with hypertensive emergency - cannot rule out Neurological issue
-UA negative
-COVID, Flu-negative; Could be an array of viruses
-CT head negative for acute findings
-MRI brain ordered
-EKG with normal sinus rhythm
-Physical therapy consulted
-F/u ammonia
# Nausea/vomiting/diarrhea
-improved although still present
-no abd tenderness
-F/u XR Abdomen
-F/u Stool cultures, norovirus
-F/u trops for atypical symptoms
# Hypertension emergency
-BP better with labetalol
-Continue Norvasc and valsartan with hold parameters
-monitor bmp
#Hyperbilirubinemia
� No right upper quadrant tenderness
� Continue to monitor, consider further imaging if unresolving
�follow-up bilirubin
# Chronic kidney disease
-Calcitriol continued
##GERD, Adams's esophagus
- PPI
#Chronic low back pain/lumbar DDD, narcotic dependent
- cont Bupropion patch
#HX BPH status post TURP with residual urinary retention
- on Terazosin
#neuropathy
-gabapentin continued
#Prior HX opioid dependence.
#HX Breast cancer 2014, status post left mastectomy.
#HX Fatty liver.
#HX hepatitis B.
#HX .Vitamin d deficiency.
DVT prophylaxis: Heparin
CODE STATUS
-Full code
Total time spent on today's encounter was 51 minutes which included time spent in counseling the patient/family regarding diagnosis and treatment plan as listed above, goals of care, and symptom management. Case was discussed with nursing staff,
specialists, and care coordinators/case management. All labs and imaging personally reviewed by me. Remainder the time spent in detailed review of previous records, lab data, imaging, and other medical provider documentation.
Anticipated Discharge: 24 - 48 hours
Subjective/Interval History
-
Date of Service: July 21, 2024
Still nauseous
Objective Data
-
Vital Signs:
Vital Signs
Temp Pulse Resp BP Pulse Ox
98.6 F 85 18 165/97 97
07/21/24 08:07 07/21/24 08:25 07/21/24 08:07 07/21/24 08:25 07/21/24 08:07
I&O
07/20/24 07/21/24 07/22/24
06:59 06:59 06:59
Intake Total 0 / 0
Balance 0 / 0
Review of Systems
-
History Source: Patient
All other systems: Not reviewed unless documented
Physical Exam
-
General: No Apparent Distress, Comfortable and Conversant
HEENT: Negative Thrush
Respiratory: Clear to Auscultation and Non Labored Respirations; Negative Wheezes, Rales or Crackles
Cardiac: Regular Rhythm and S1/S2; Negative Murmur or Rub
GI: Soft
Musculoskeletal: No Clubbing and No Cyanosis
Skin: Warm
Neuro: Awake, Alert, Oriented, AO x 3 and No Motor Deficits
Psych: Calm
Data Reviewed
-
CT Scan: Image personally visualized and interpreted and Report Reviewed by me
Labs: Labs Reviewed by me
[2024-07-21 13:38] LABS: Hematocrit 39.5 % (39.0-52.0); Hemoglobin 14.1 g/dL (13.0-18.0); Mean Corp Hgb Conc. 35.7 g/dL (33.0-37.0); Mean Corpuscular Hgb 32.9 pg (27.0-31.0); Mean Corpuscular Volume 92.3 fL (80.0-94.0); Mean Platelet Volume 8.8 fL (7.4-10.4); Platelet Count 162 10^3/uL (130-400); Red Blood Cell Count 4.28 10^6/uL (4.70-6.10); Red Cell Dist. Width 13.2 % (11.5-14.5)
[2024-07-21 13:55] LABS: Ammonia < 9 umol/L (9-30)
[2024-07-21 14:01] LABS: ALT (SGPT) 20 U/L (0-50); AST (SGOT) 22 U/L (17-59); Albumin 4.4 g/dl (3.5-5.0); Alkaline Phosphatase 85 U/L (38-126); Blood Urea Nitrogen 17 mg/dl (9-20); Calcium 8.9 mg/dl (8.4-10.2); Carbon Dioxide 25 mmol/L (22-30); Chloride 104 mmol/L (98-107); Direct Bilirubin 0.3 mg/dl (0.0-0.4); Estimated Creatinine Clearance 69 ml/min; Glucose 110 mg/dl (70-99); Potassium 3.7 mmol/L (3.5-5.1); Sodium 138 mmol/L (135-145); Total Bilirubin 2.4 mg/dl (0.2-1.3); Total Protein 7.1 g/dl (6.3-8.2); eGFR > 60.00
[2024-07-21 14:06] LABS: Troponin I 0.016 ng/ml
[2024-07-21 16:33] VITALS: BP 186/91
[2024-07-21] MEDS: APRESOLINE 10 MG IV (18:11)
[2024-07-21] MEDS: NSS IV (20:35)
[2024-07-21 20:39] LABS: Troponin I 0.013 ng/ml
[2024-07-21] MEDS: HYTRIN 5 MG PO (21:00)
[2024-07-21 23:19] VITALS: BP 108/92
[2024-07-22 07:06] VITALS: BP 140/78
--- NOTE | 2024-07-22 08:28 | W.PN.HOSP.TC ---
Today's Communication/Plan
-
Clear liquid diet
GI consult
Resume amlodipine
Assessment / Plan
Assessment / Plan
Gen-AAOx3, NAD
HEENT-NC, AT, anicteric, clear oral mm
Neck-supple
CV-reg, no M, +S1/S2
Lungs-clear B/L
Abd-soft, NT, ND
Ext-no edema
Musculoskeletal-no cyanosis, clubbing
Skin-warm and dry
Neuro-grossly non-focal
Psych-calm, cooperative
Acute TME -differential diagnosis includes hypertensive encephalopathy versus acute gastroenteritis versus other etiology. Doubt acute stroke. Hold off on brain MRI.
Acute gastroenteritis -still with complaints of nausea. Last BM 2 to 3 days ago. Change diet to clears.
If he has diarrhea we will send stool studies. EGD done July 2018 showed benign duodenal mass, small hiatal hernia. He does have a history of Adams's esophagus. Consult GI for persistent nausea.
Essential hypertension with hypertension emergency -emergency resolved. Resume amlodipine. Continue valsartan, Terazosin.
GERD, Adams's esophagus
- PPI
#Chronic low back pain/lumbar DDD, chronic opioid dependence
- cont buprenorphine patch
#HX BPH status post TURP with residual urinary retention
- on Terazosin
Chronic peripheral neuropathy
-gabapentin continued
#HX Breast cancer 2014, status post left mastectomy.
#HX Fatty liver.
#HX hepatitis B.
#HX .Vitamin d deficiency.
Obesity due to excess calories
DVT prophylaxis: Heparin
CODE STATUS
-Full code
Anticipated Discharge: 24 - 48 hours
Subjective/Interval History
-
Date of Service: July 22, 2024
Patient seen and examined. Complaining of persistent nausea. Last bowel movement 2 to 3 days ago. Complaining of anorexia.
Objective Data
-
Labs:
Laboratory Results
07/22/24
08:11
WBC Pending
Hgb Pending
Hct Pending
Plt Count Pending
Sodium Pending
Potassium Pending
Chloride Pending
Carbon Dioxide Pending
BUN Pending
Creatinine Pending
Glucose Pending
Calcium Pending
Total Bilirubin Pending
AST Pending
ALT Pending
Alkaline Phosphatase Pending
Vital Signs:
Vital Signs
Temp Pulse Resp BP Pulse Ox
98.7 F 86 20 140/78 97
07/22/24 07:06 07/22/24 07:06 07/22/24 07:06 07/22/24 07:06 07/22/24 07:06
I&O
07/21/24 07/22/24 07/23/24
06:59 06:59 06:59
Intake Total 0 / 0 480 / 480
Balance 0 / 0 480 / 480
Review of Systems
-
History Source: Patient
All other systems: Reviewed and negative
[2024-07-22 08:43] LABS: Hematocrit 39.2 % (39.0-52.0); Hemoglobin 13.7 g/dL (13.0-18.0); Mean Corp Hgb Conc. 34.9 g/dL (33.0-37.0); Mean Corpuscular Hgb 31.8 pg (27.0-31.0); Platelet Count 155 10^3/uL (130-400); Red Blood Cell Count 4.31 10^6/uL (4.70-6.10); Red Cell Dist. Width 13.1 % (11.5-14.5); White Blood Cell Count 5.4 10^3/uL (4.8-10.8)
[2024-07-22 09:10] LABS: ALT (SGPT) 18 U/L (0-50); AST (SGOT) 19 U/L (17-59); Albumin 4.1 g/dl (3.5-5.0); Alkaline Phosphatase 75 U/L (38-126); Blood Urea Nitrogen 16 mg/dl (9-20); Calcium 8.9 mg/dl (8.4-10.2); Carbon Dioxide 24 mmol/L (22-30); Chloride 104 mmol/L (98-107); Estimated Creatinine Clearance 63 ml/min; Glucose 94 mg/dl (70-99); Potassium 3.6 mmol/L (3.5-5.1); Sodium 140 mmol/L (135-145); Total Bilirubin 2.1 mg/dl (0.2-1.3); Total Protein 6.6 g/dl (6.3-8.2); eGFR > 60.00
[2024-07-22 09:11] LABS: Troponin I 0.015 ng/ml
[2024-07-22] MEDS: ROCALTROL 0.25 MCG PO (09:18)
[2024-07-22] MEDS: NORVASC 5 MG PO (09:20)
[2024-07-22] MEDS: HEPARIN 5000 UNITS SC ×2 (09:20→21:43)
[2024-07-22] MEDS: DIOVAN 160 MG PO (09:20)
[2024-07-22] MEDS: ASPIR LOW (ENTERIC COATED) 81 MG PO (09:20)
[2024-07-22] MEDS: ZOFRAN 4 MG IV ×2 (10:39→16:39)
--- NOTE | 2024-07-22 13:21 | CON.GI ---
Addendum entered and electronically signed by Maty Starr MD 07/22/24 18:28:
I saw and examined the patient.
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
Comment: This is a 73-year-old male with multiple medical problems as listed below who presented with symptoms of nausea,vomiting and diarrhea on 07/20. His symptoms have actually improved today and he has not had any further episodes of diarrhea or
vomiting. on admission he was also noted to have hypertensive urgency and had a CT head which was unremarkable he had an obstruction series which was negative for bowel obstruction. He has not been able to provide a stool sample. He currently
denies any abdominal pain. He is also currently being worked up for possible renal artery stenosis. He does have chronic back pain and is on buprenorphine patch
Assessment and plan 1 nausea vomiting diarrhea probable viral gastroenteritis if he does have further diarrhea will check for stool studies. His vomiting has resolved he is tolerating clear liquids. He is also currently being worked up for
uncontrolled hypertension and presented with hypertensive urgency and symptoms could be related to that also. Will also get CT abdomen and pelvis. He is being worked up for renal artery stenosis and if that is negative may need to also rule out
NET/pheo.
2 GERD and Neville's he is overdue for a surveillance endoscopy last endoscopy was in 2018
3. History of colon polyps last colonoscopy was in 2019
Addendum entered and electronically signed by SAÚL Car 07/22/24 15:59:
will hold CT for now as patient does not feel he can tolerate PO contrast
Original Note:
Consultation
-
Date/Time Consultation Requested: 07/22/24 0820
Date/Time Consultation Performed: 07/22/24 1320
Requesting Provider: Ted Guzman DO
Performing Provider: SAÚL Irwin, Maty Starr MD
Reason for Consultation: nausea
Medical History
Chief Complaint / HPI
Chief Complaint: nausea/vomiting
History of Present Illness:
Pt is a 73yo presents with left breast CA with prior mastectomy, HTN, carotid artery stenosis, BPH, neville's esophagus, GERD, prior hep B/C exposure, prior substance abuse, marilou, diverticulitis with chronic lower back pain with chronic
Buprenorphine use, present 07/20 to ER with nausea/vomiting and diarrhea. On admission he was also noted with weakness and metabolic encephalopathy with confusion, HTN urgency. In review with patient he has similar symptoms several weeks ago
with admission. At that time his symptoms thought to be relate to hypotension with start of Hydrochlorothiazide. He was also noted with possible renal artery stenosis on imaging with left renal atrophy. He is also schedule follow up MRA for
continued HTN urgency to assess vasculature. He continued with some persistent nausea and ask for GI evaluation. Imaging on admission with ab film with possible dysmotility and enteritis related. No flushing.
He currently admits to GERD on chronic Omeprazole therapy and persistent nausea with large volume of vomiting and diarrhea prior to admission now improved and feeling of constipation. He denies current wt loss but did have trial of Ozempic
type drug with wt loss 60 lbs last year. He denies abdominal pain, blood or black in stools. Last EGD [address] Burton likely benign duodenal mass, erythema antrum small HH, changes of neville's bx + neville's. Colonoscopy Dr. Barnes 2019
diverticulosis, 3 mm polyp sigmoid HP, 7 mm polyp mid transverse colon bx TA.
Past Medical History
Past Medical History: Cancer (breast CA), GERD, HTN and Other (carotid artery stenosis, neville's esophagus, BPH, fatty liver, hep B, prior hep C ab + with neg RNA, vitamin D deficiency, neuropathy, recovering narcotic dependency, colon polyps)
Past Surgical History: Cholecystectomy, Gynecological (mastectomy) and Other (TURP)
Social History
Tobacco: Former Smoker
Alcohol: Former
Drug: Other (former 18 years in recovery )
Personal:
Living: With Family
Employment: Retired
Family History
Family History: Other (no family hx GI problems )
Allergies / Home Medications
Allergy/AdvReac Type Severity Reaction Status Date / Time
codeine Allergy Itching Verified 07/20/24 12:56
ibuprofen Allergy stomach Verified 07/20/24 12:56
pain
narcotics Allergy Patient in Uncoded 06/07/24 13:04
recovery
�Medication �Instructions �Recorded
buprenorphine 15 mcg/hour weekly 15 mcg topical WE Pain 05/27/24
transdermal patch
calcitriol 0.25 mcg capsule 0.25 mcg PO MOWEFR Kidney Disease 05/27/24
gabapentin 300 mg capsule 300 mg PO TIDPRN PRN neuropathy 05/27/24
omeprazole 20 mg capsule,delayed 20 mg PO DAILYPRN PRN gi upset 05/27/24
release
terazosin 5 mg capsule 5 mg PO HS Urinary Issue 05/27/24
valsartan 320 mg tablet 160 mg PO DAILY Blood Pressure 05/27/24
amlodipine 10 mg tablet 10 mg PO DAILY Blood pressure #1 06/03/24
tab
aspirin 81 mg tablet,delayed 81 mg PO DAILY Stroke #30 tabs 06/03/24
release
acetaminophen 500 mg tablet 1,000 mg PO Q6HPRN PRN mild pain 06/07/24
(Tylenol Extra Strength)
docusate sodium 100 mg capsule 100 mg PO BIDPRN PRN constipation 06/07/24
(Colace)
Review of Systems
-
History Source: Patient
Constitutional: Reports No Symptoms
EENT: Reports No Symptoms
Respiratory: Reports No Symptoms
Cardiac: Reports No Symptoms
Abdomen/GI: Reports Nausea, Vomiting and Diarrhea
: Reports No Symptoms
Musculoskeletal: Reports Other (chronic back pain with chronic pain pain patch )
Skin: Reports No Symptoms
Neurological: Reports Other (confusion)
Endocrine: Reports No Symptoms
Hematologic/Lymphatic: Reports No Symptoms
Vital Signs
Temp Pulse Resp BP Pulse Ox
98.7 F 86 20 140/78 97
07/22/24 07:06 07/22/24 09:20 07/22/24 07:06 07/22/24 09:20 07/22/24 07:06
Physical Exam
Exam
General: Well Developed and Well Nourished
HEENT: Normocephalic and Anicteric
Respiratory: Clear
Cardiac: Regular Rhythm
GI: Soft, Non Tender and Distended (minimal)
Musculoskeletal: No Clubbing and No Cyanosis
Skin: Warm and Dry
Neuro: Awake, Alert and AO x 3
Psych: Calm
Results
WBC 5.4 10^3/uL (4.8-10.8) 07/22/24 08:11
Hgb 13.7 g/dL (13.0-18.0) 07/22/24 08:11
Hct 39.2 % (39.0-52.0) 07/22/24 08:11
MCV 91.0 fL (80.0-94.0) 07/22/24 08:11
Plt Count 155 10^3/uL (130-400) 07/22/24 08:11
Absolute Neuts (auto) 5.4 10^3/uL (1.4-6.5) 07/20/24 14:48
Sodium 140 mmol/L (135-145) 07/22/24 08:11
Potassium 3.6 mmol/L (3.5-5.1) 07/22/24 08:11
Chloride 104 mmol/L (98-107) 07/22/24 08:11
Carbon Dioxide 24 mmol/L (22-30) 07/22/24 08:11
BUN 16 mg/dl (9-20) 07/22/24 08:11
Creatinine 1.2 mg/dL (0.7-1.3) 07/22/24 08:11
Calcium 8.9 mg/dl (8.4-10.2) 07/22/24 08:11
Total Bilirubin 2.1 mg/dl (0.2-1.3) H 07/22/24 08:11
AST 19 U/L (17-59) 07/22/24 08:11
ALT 18 U/L (0-50) 07/22/24 08:11
Alkaline Phosphatase 75 U/L (38-126) 07/22/24 08:11
Diagnostic Image Results:
07/21 abd X ray Nonspecific bowel gas pattern, especially given single supine imaging. Possible nonspecific dysmotility, which may be seen with enteritis.
05/27 CT A/p without contrast
IMPRESSION: No acute pathology of the abdomen or pelvis identified.
Findings consistent with prior benign granulomatous disease. Stable
Pancreatic fatty infiltration. Progressed
Prior cholecystectomy. Stable
Severe left renal atrophy. This can be seen with renal artery stenosis. Stable
Moderate diverticulosis. Stable
Prior GI Procedures:
EGD: [address] Burton likely benign duodenal mass, erythema antrum small HH, changes of barrrett's bx + neville's.
Colonoscopy: Dr. Barnes 2020 diverticulosis, 3 mm polyp sigmoid HP, 7 mm polyp mid transverse colon bx TA
Assessment / Plan
-
Pt is a 73yo presents with left breast CA with prior mastectomy, HTN, carotid artery stenosis, BPH, neville's esophagus, GERD, prior hep B/C exposure, prior substance abuse, marilou, diverticulitis with chronic lower back pain with chronic
Buprenorphine use, present 07/20 to ER with nausea/vomiting and diarrhea. On admission he was also noted with weakness and metabolic encephalopathy with confusion, HTN urgency. In review with patient he has similar symptoms several weeks ago
with admission. At that time his symptoms thought to be relate to hypotension with start of Hydrochlorothiazide. He was also noted with possible renal artery stenosis on imaging with left renal atrophy. He is also schedule follow up MRA for
continued HTN urgency to assess vasculature. He continued with some persistent nausea and ask for GI evaluation. Imaging on admission with ab film with possible dysmotility and enteritis related.
-recurrent admission with nausea/vomiting diarrhea
-metabolic encephalopathy on admission
-abd imaging with possible enteritis
-HTN urgency with OP work up for MICKI
-wt loss with GPL1 use last year
other med problems:
-breast CA with prior mastectomy
-neville's/GERD on chronic PPI
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
-chronic back pain with chronic Buprenorphine use
-hx substance abuse clear for 18 years
-prior hep B and C exposure
-marilou
PLAN:
Etiology of GI symptoms related to underlying gastroenteritis with norovirus pending but noted recurrent process, secondary to other metabolic issue with HTN urgency, confusion, etc, vs other
pt with significant HTN urgency on 2 admission-- continue work up per renal for MICKI- NET/ pheochromocytoma within differential consider testing if no stenosis on follow up imaging due for OP MRA
follow symptoms and advance diet as tolerated
will proceed with IV and oral contrast CT as prior imaging without contrast
cont HTN management per renal Outpatient-- I sent Dr Kilgore update with current admission
await norovirus culture
will follow
-
-
Thank you for consultation and allowing me to participate in the patient's care. Please call the substation operator apprentice GI physician during the after hours with any questions or concerns.
--- NOTE | 2024-07-22 15:24 | TRANSFER ---
pt transferred to RM [id number]. pt belongings sent with the pt. Report given to BRADEN Gutierrez.
[2024-07-22 15:30] VITALS: BP 151/97
--- NOTE | 2024-07-22 15:54 | CM ---
Spoke with pts Heather they live in a 1 story home with 1 step to enter. He is independent in driving and in all activities of daily living.He has no adaptive devices.Pt transferred to private room 2N.CORDOBA letter given Explained to . CORDOBA
letter on chart not signed.
No VN hx / No SNF history
Pharmacy [facility]
PCP Rakesh Morillo
PLAN Home possible VN
--- NOTE | 2024-07-22 16:37 | PTCARENOTE ---
CT scan with oral contrast ordered per GI, patient stating he cannot tolerate drinking oral contrast at this time, states nausea with any amount of oral intake at this time. GI made aware, will reattempt CT scan in AM.
[2024-07-22] MEDS: HYTRIN 5 MG PO (21:43)
[2024-07-22] MEDS: COMPAZINE 10 MG IV (22:01)
[2024-07-22 23:20] VITALS: BP 146/69
[2024-07-23 00:20] VITALS: BP 146/69
[2024-07-23 07:00] VITALS: BP 110/77
[2024-07-23] MEDS: HEPARIN 5000 UNITS SC (08:08)
[2024-07-23] MEDS: DIOVAN 160 MG PO (08:08)
[2024-07-23] MEDS: ASPIR LOW (ENTERIC COATED) 81 MG PO (08:08)
[2024-07-23] MEDS: NORVASC 5 MG PO (08:08)
--- NOTE | 2024-07-23 10:42 | W.PN.GI.CBS2 ---
Today's Communication / Plan
-
adv diet
Assessment / Plan
-
Pt is a 73yo presents with left breast CA with prior mastectomy, HTN, carotid artery stenosis, BPH, neville's esophagus, GERD, prior hep B/C exposure, prior substance abuse, marilou, diverticulitis with chronic lower back pain with chronic
Buprenorphine use, present 07/20 to ER with nausea/vomiting and diarrhea. On admission he was also noted with weakness and metabolic encephalopathy with confusion, HTN urgency. In review with patient he has similar symptoms several weeks ago
with admission. At that time his symptoms thought to be relate to hypotension with start of Hydrochlorothiazide. He was also noted with possible renal artery stenosis on imaging with left renal atrophy. He is also schedule follow up MRA for
continued HTN urgency to assess vasculature. He continued with some persistent nausea and ask for GI evaluation. Imaging on admission with ab film with possible dysmotility and enteritis related.
-recurrent admission with nausea/vomiting diarrhea
-metabolic encephalopathy on admission
-abd imaging with possible enteritis
-HTN urgency with OP work up for MICKI
-wt loss with GPL1 use last year
other med problems:
-breast CA with prior mastectomy
-neville's/GERD on chronic PPI
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
-chronic back pain with chronic Buprenorphine use
-hx substance abuse clear for 18 years
-prior hep B and C exposure
-marilou
PLAN:
1 nausea vomiting diarrhea probable viral gastroenteritis (norovirus neg) stool culture - P His vomiting has resolved he is tolerating clear liquids will advance diet he is also currently being worked up for uncontrolled hypertension and presented
with hypertensive urgency and symptoms could be related to that also. Will also get CT abdomen and pelvis. He is being worked up for renal artery stenosis and if that is negative may need to also rule out NET/pheo.
2 GERD and Neville's he is overdue for a surveillance endoscopy last endoscopy was in 2018
3. History of colon polyps last colonoscopy was in 2019
If tolerates diet okay to DC home from a GI perspective and follow-up as outpatient. Will also hold on CT for now send symptoms have resolved
Subjective
Subjective
Date of Service: July 23, 2024
Symptoms have markedly improved he has not had any further episodes of vomiting or diarrhea since yesterday night and nausea is improving. His stool studies were negative for norovirus cultures are pending
Objective
Data Reviewed
Laboratory Data:
Laboratory Results
07/22/24 08:11
07/22/24 08:11
Laboratory Results
Total Bilirubin 2.1 mg/dl (0.2-1.3) H 07/22/24 08:11
AST 19 U/L (17-59) 07/22/24 08:11
ALT 18 U/L (0-50) 07/22/24 08:11
Alkaline Phosphatase 75 U/L (38-126) 07/22/24 08:11
Vital Signs and I&O:
Vital Signs
Temp Pulse Resp BP Pulse Ox
98.2 F 77 16 110/77 97
07/23/24 07:00 07/23/24 08:08 07/23/24 07:00 07/23/24 08:08 07/23/24 10:11
I&O
07/22/24 07/23/24 07/24/24
06:59 06:59 06:59
Intake Total 480 / 480 240 / 240
Balance 480 / 480 240 / 240
Physical Exam
Physical Exam
Cardiology: Normal Sinus Rhythm
Pulmonary: Clear
GI: Soft, Non Distended, Non Tender and Normal Bowel Sounds
--- NOTE | 2024-07-23 11:18 | W.PN.HOSP.TC ---
Today's Communication/Plan
-
Advance diet
Possible discharge
Assessment / Plan
Assessment / Plan
Gen-AAOx3, NAD
HEENT-NC, AT, anicteric, clear oral mm
Neck-supple
CV-reg, no M, +S1/S2
Lungs-clear B/L
Abd-soft, NT, ND
Ext-no edema
Musculoskeletal-no cyanosis, clubbing
Skin-warm and dry
Neuro-grossly non-focal
Psych-calm, cooperative
Acute TME -differential diagnosis includes hypertensive encephalopathy versus acute gastroenteritis versus other etiology. Doubt acute stroke. Hold off on brain MRI. Acute TME resolved.
Acute gastroenteritis -improving. Diet advanced to low residue by GI service. Stool norovirus negative, stool culture pending. GI okay with holding off on CT scan given improvement clinically.
Essential hypertension with hypertension emergency -emergency resolved. Resume amlodipine. Continue valsartan, Terazosin. Getting worked up by nephrology for pheochromocytoma or secondary causes of hypertension. Scheduled to see Dr. Kilgore next
week and get MRA of renal arteries next week.
GERD, Adams's esophagus
- PPI
#Chronic low back pain/lumbar DDD, chronic opioid dependence
- cont buprenorphine patch
#HX BPH status post TURP with residual urinary retention
- on Terazosin
Chronic peripheral neuropathy
-gabapentin continued
#HX Breast cancer 2014, status post left mastectomy.
#HX Fatty liver.
#HX hepatitis B.
#HX .Vitamin d deficiency.
Obesity due to excess calories
DVT prophylaxis: Heparin
CODE STATUS
-Full code
Dispo -possible discharge this afternoon if tolerates diet.
Anticipated Discharge: Today
Subjective/Interval History
-
Date of Service: July 23, 2024
Patient seen and examined. Feeling better. No complaints.
Objective Data
-
Vital Signs:
Vital Signs
Temp Pulse Resp BP Pulse Ox
98.2 F 77 16 110/77 97
07/23/24 07:00 07/23/24 08:08 07/23/24 07:00 07/23/24 08:08 07/23/24 10:11
I&O
07/22/24 07/23/24 07/24/24
06:59 06:59 06:59
Intake Total 480 / 480 240 / 240
Balance 480 / 480 240 / 240
Review of Systems
-
History Source: Patient
All other systems: Reviewed and negative
--- NOTE | 2024-07-23 12:33 | CM ---
Reviewed the chart notes and spoke with the patient at the bedside. IMM reviewed, copy left with patient. Diet advanced to low residue. The patient anticipates being discharged to home with no additional needs being identified at this time.
Plan: Discharge to home when medically stable.
--- NOTE | 2024-07-23 13:40 | W.DS.TRANS ---
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
-
Discharge Instructions:
Discharge Diagnosis/Procedures Hypertensive encephalopathy, acute
gastroenteritis
Diet Low Residue
Activity As tolerated
Driving Restrictions As prior to admission
Bathing Restrictions None
Instructions:
Stand-Alone Forms:
Changes to Home Medications: No
Discharge Medications:
DC Medications w/original date entered in [employer]
buprenorphine 15 mcg/hour weekly transdermal patch 15 mcg topical WE Pain 05/27/24
calcitriol 0.25 mcg capsule 0.25 mcg PO MOWEFR Kidney Disease 05/27/24
gabapentin 300 mg capsule 300 mg PO TIDPRN PRN neuropathy 05/27/24
omeprazole 20 mg capsule,delayed release 20 mg PO DAILYPRN PRN gi upset 05/27/24
terazosin 5 mg capsule 5 mg PO HS Urinary Issue 05/27/24
valsartan 320 mg tablet 160 mg PO DAILY Blood Pressure 05/27/24
amlodipine 10 mg tablet 10 mg PO DAILY Blood pressure #1 tab 06/03/24
aspirin 81 mg tablet,delayed release 81 mg PO DAILY Stroke #30 tabs 06/03/24
acetaminophen 500 mg tablet (Tylenol Extra Strength) 1,000 mg PO Q6HPRN PRN mild pain 06/07/24
docusate sodium 100 mg capsule (Colace) 100 mg PO BIDPRN PRN constipation 06/07/24
Home Medication Changes
Pending Results: No
--- NOTE | 2024-07-23 13:57 | W.DS.TRANS ---
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
-
Discharge Instructions:
Discharge Diagnosis/Procedures Hypertensive encephalopathy, acute
gastroenteritis
Diet Low Residue
Activity As tolerated
Driving Restrictions As prior to admission
Bathing Restrictions None
Instructions:
Stand-Alone Forms:
Changes to Home Medications: No
Discharge Medications:
DC Medications w/original date entered in [employer]
buprenorphine 15 mcg/hour weekly transdermal patch 15 mcg topical WE Pain 05/27/24
calcitriol 0.25 mcg capsule 0.25 mcg PO MOWEFR Kidney Disease 05/27/24
gabapentin 300 mg capsule 300 mg PO TIDPRN PRN neuropathy 05/27/24
omeprazole 20 mg capsule,delayed release 20 mg PO DAILYPRN PRN gi upset 05/27/24
terazosin 5 mg capsule 5 mg PO HS Urinary Issue 05/27/24
valsartan 320 mg tablet 160 mg PO DAILY Blood Pressure 05/27/24
amlodipine 10 mg tablet 10 mg PO DAILY Blood pressure #1 tab 06/03/24
aspirin 81 mg tablet,delayed release 81 mg PO DAILY Stroke #30 tabs 06/03/24
acetaminophen 500 mg tablet (Tylenol Extra Strength) 1,000 mg PO Q6HPRN PRN mild pain 06/07/24
docusate sodium 100 mg capsule (Colace) 100 mg PO BIDPRN PRN constipation 06/07/24
ondansetron 4 mg disintegrating tablet 4 mg PO Q6H PRN nausea and vomiting #20 tabs 07/23/24
Home Medication Changes
Pending Results: No
[2024-07-23 15:00] VITALS: BP 122/87
--- NOTE | 2024-07-23 16:20 | PTCARENOTE ---
Patient discharged home with no needs, transported by spouse. R midline removed by IV nurse. Vitals taken by tech. This RN reviewed discharge instructions with patient and patient's spouse, both verbalized understanding. Patient dressed and gathered
belongings independently in room, taken down to spouse's car at [facility] via staff escort and wheelchair.
== END 2024-07-23 16:27 | disposition home or self-care (01) | DRG 71 ==
LOC: 2 NORTH 15:34
PROVIDERS: Internal Medicine; ADMITTING PHYSICIAN Internal Medicine; ATTENDING PHYSICIAN Hospitalist; CONSULT PHYSICIAN Internal Medicine Gastroenterology; EMERGENCY PHYSICIAN Emergency Medicine
DX: G93.41 Metabolic encephalopathy (principal); I16.1 Hypertensive emergency; I67.4 Hypertensive encephalopathy; K21.9 Gastro-esophageal reflux disease without esophagitis; I12.9 Hypertensive chronic kidney disease with stage 1 through stage 4 chronic kidney disease, or unspecified chronic kidney disease; N18.2 Chronic kidney disease, stage 2 (mild); E66.09 Other obesity due to excess calories; Z87.891 Personal history of nicotine dependence; Z68.30 Body mass index [BMI] 30.0-30.9, adult; K52.9 Noninfective gastroenteritis and colitis, unspecified; Z11.52 Encounter for screening for COVID-19
CPT/HCPCS: 70450; 74018; 80053; 81003; 81015; 82140; 82248; 83605; 84484; 85025; 85027; 87045; 87046; 87077; 87427; 87502; 87798; 87811; 93005; 96374; 96375; 96376; 97161; 99285

== ENCOUNTER → 2024-07-31 07:48 | Outpatient (REF) | payer OTHER, SELFPAY | LOC: PAVMRI 07:48 | PROVIDERS: ATTENDING PHYSICIAN Specialist; FAMILY PHYSICIAN Nurse Practitioner Family | DX: N17.9 Acute kidney failure, unspecified (principal); I10 Essential (primary) hypertension | CPT/HCPCS: 74185; A9585 ==

== ENCOUNTER 2024-09-19 22:25 | Observation (INO) | payer OTHER, SELFPAY ==
[2024-09-19] VITALS (7 sets, daily range): BP systolic 100–159; BP diastolic 75–103; BMI 36.1
[2024-09-19 16:33] LABS: COVID-19 Antigen Negative (Negative)
--- NOTE | 2024-09-19 18:22 | ED.GENMED ---
History of Present Illness
General
Chief Complaint: Weakness
Source: patient
Exam Limitations: none
Time Seen by Provider: 09/19/24 18:12
Nursing documentation reviewed up to this point in time: agreed with
History of Present Illness
History of Present Illness:
Patient is a 73-year-old male with past medical history of hypertensive encephalopathy, left breast cancer, chronic back pain on opiates (buprenorphine patch)presents to the ER for evaluation. Patient started with fever chills nausea vomiting
diarrhea since Monday, for the past 3 days. also reports patient has been intermittently confused. Patient did vomit here in the waiting room and he did have diarrhea today as well. He has a intermittent episodes of the past several days.
He was seen at [facility] prior to this however his right arm IV infiltrated and he came here to the ER for further evaluation and continued workup.
reports this has happened several times in the past. She does report his blood pressure has been high and has been refusing to take his blood pressure medication. Patient presents awake alert he is able to give history. He reports he feels
out of it and confused and when he gets like this he does not want to take his medication.
Patient was previously admitted July 2024 for hypertensive encephalopathy and acute gastroenteritis.
Patient presents awake alert he reports he does feel confused in fact he is not able to tell me the year but is able to give me good history of present illness. He is aware that it is September and is able to state the president. He admits to
feeling very weak
Past History
Past History
ED Past Medical History: Cancer (Left breast cancer), GERD, HTN, Other (Sigmoid diverticulitis March 2022; chronic low back pain/lumbar DDD, narcotic dependent) and Other (BPH; prior history of pain med addiction)
ED Past Surgical History: Cholecystectomy, Orthopedic, Urological (TURP December 2019) and Other (Mastectomy-left)
Social History
Tobacco: Former smoker
Alcohol: None
Drug: Former user
Personal:
Living: with family
Employment: Retired
Family History
Family History: Other (Noncontributory)
Review of Systems
Review of Systems
Allergies reviewed?: Yes
Other source history: family
All Other Systems: ROS reviewed and negative except as documented in HPI and ROS
Constitutional: Reports fever, fatigue and chills
Respiratory: Reports no symptoms
Cardiac: Reports no symptoms
ABD/GI: Reports nausea, vomiting and diarrhea; Denies abdominal pain
Musculoskeletal: Reports no symptoms
Skin: Reports no symptoms
Neurological: Reports other (intermittent confusion )
Psychiatric: Reports no symptoms
Phy Exam
General Physical Exam
General Presentation: no apparent distress
General age: appears stated age
General Skin: warm and dry
General Habitus: normal
Course
Orders/Labs/Results
Orders:
Orders
09/19/24 15:56
Electrocardiogram (*1) Urgent
Reason for Study: Fatigue / Weakness
EKG- Treatment ONCE
09/19/24 15:59
COVID-19 Antigen Urgent
Source: Nasal Swab
Influenza A+B Rapid Molecular Urgent
EMILY Source: Nasal Swab
Specimen Description:
09/19/24 18:40
Electrocardiogram (*1) Stat
Reason for Study: Abdominal Pain
Cardiac Monitoring- Treatment ONCE
EKG- Treatment ONCE
IV Insert/Care/Rem.- Treatment PRN
0.9% Sodium Chloride 1000 ml [Nss] 1,000 ml IV BOLUS
09/19/24 19:15
Acetaminophen [Tylenol/Feverall] 325 mg RECTAL NOW STA
09/19/24 19:16
Acetaminophen [Tylenol] 325 mg PO NOW STA
09/19/24 19:29
Complete Blood Count/With Diff Urgent
Comprehensive Metabolic Panel Urgent
Lactate Level [Lactic Acid] Urgent
Lipase Urgent
09/19/24 20:12
Urinalysis Reflex To Culture Urgent
Date Specimen was Collected: 09/19/24
Time Specimen was Collected: 20:03
Urine Microscopic Reflex Cult Urgent
09/19/24 20:24
CT Head W/o Iv Contrast Urgent
Comment:
Reason For Exam: change in ms
09/19/24 21:29
Ondansetron Injectable [Zofran] 4 mg .ROUTE .STK-MED ONE
09/19/24 21:31
Ondansetron Injectable [Zofran] 4 mg IV NOW STA
09/19/24 21:34
Norovirus by PCR Urgent
EMILY Source: Feces/Stool
Specimen Description:
Stool Culture Urgent
EMILY Source: Feces/Stool
Specimen Description:
Abnormal Lab Results
09/19/24 09/19/24
19:29 20:12
MCH 31.4 H pg
(27.0-31.0)
Abs Immat Gran (auto) 0.1 H 10^3/uL
(0-0.05)
Absolute Neuts (auto) 6.7 H 10^3/uL
(1.4-6.5)
Absolute Lymphs (auto) 1.0 L 10^3/uL
(1.2-3.4)
Absolute Monos (auto) 1.1 H 10^3/uL
(0.1-0.6)
Immature Gran % 0.6 H %
(0-0.5)
Neutrophils % 75.4 H %
(42.2-75.2)
Lymphocytes % 10.9 L %
(20.5-51.1)
Monocytes % 12.3 H %
(1.7-9.3)
BUN 28 H mg/dl
(9-20)
Glucose 107 H mg/dl
(70-99)
Total Bilirubin 2.2 H mg/dl
(0.2-1.3)
Urine Ketones 2+ A
(Negative)
Ur Occult Blood Reflex 1+ A
(Negative)
Urine Albumin (Reflex) 3+ A
(Neg - Trace)
09/19/24 19:29
09/19/24 19:29
Vital Signs
Initial and Last Documented VS:
Initial Vital Signs
Temp Pulse Resp BP Pulse Ox
98.4 F 110 16 147/100 98
09/19/24 15:52 09/19/24 15:52 09/19/24 15:52 09/19/24 15:52 09/19/24 15:52
Last Documented Vital Signs
Temp Pulse Resp BP Pulse Ox
98.4 F 81 17 159/103 97
09/19/24 15:52 09/19/24 18:45 09/19/24 18:45 09/19/24 18:21 09/19/24 18:50
Osha Inspector consulted with Physician
Osha Inspector consulted with physician?: Yes
Name of Physician Consulted: Noh
MDM/Problems Addressed
Differential Diagnosis Includes:
Not limited to dehydration, electrolyte abnormality, viral syndrome, COVID, flu, norovirus
MDM/Problems Addressed:
As documented patient is a 73-year-old female who presents to the ER complaining of nausea and vomiting weakness fatigue and confusion. This occurred for the past several days. He has not been taking his blood pressure medication. This is
occurred previously. He was admitted for this. He was seen by GI who felt possible gastroenteritis at that time.
Patient presents awake alert he does feel confused to the year but is able to give history. He denies any headache or trauma. He is on blood thinners.
Patient appears dry on exam his BUN is elevated he was given fluids. He was initially not nauseous but then developed nausea and was given Zofran here in the ER. He is afebrile here. His white count is normal his hemoglobin is stable his lactic
and creatinine are normal.
Will obtain CAT scan for intermittent confusion.
Pt feels very weak will adm for dehydration/ likley viral syndrome.
*Pulse Oximetry
Patient hypoxic: no
*EKG
Interpreted by ED Provider?: Yes
Interpretation: normal
Heart Rate: 97
Rate: normal
Rhythm: sinus
Ischemia: non-specific ST changes
*Critical Care Note
Total Time (30-74mins, 75-104mins- exclusive of procedures): Not Applicable
Data Reviewed
Review of Other/Old Records Reveals: Labs and Discharge Summary
Source: patient and significant other
ED Attending Note
-
Portions of this chart may have been created with voice recognition software.� Occasional wrong word or��sound alike� substitutions may have occurred due to the inherent limitations of voice recognition software.
Discharge Plan
Departure
Patient Disposition: Admit
Date of Disposition: 09/19/24
Time of Disposition: 21:37
Admit to: Med/Surg
Admit to doctor: [facility]
Presentation/result/management discussed w/ accepting MD/DO: Hospitalist
Patient with high blood pressure during this ER visit?: Yes
Condition: Fair
Covid-19: Not Applicable
Discharge Problem:
Acute dehydration, Weakness, Altered mental status
Prescriptions:
No Action
terazosin 5 mg capsule
5 mg PO HS
valsartan 320 mg tablet
160 mg PO DAILY
calcitriol 0.25 mcg capsule
0.25 mcg PO MOWEFR
buprenorphine 15 mcg/hour patch weekly
15 mcg topical WE
gabapentin 300 MG capsule
300 mg PO TIDPRN PRN (Reason: neuropathy)
omeprazole 20 MG capsule,delayed release(DR/EC)
20 mg PO DAILYPRN PRN (Reason: gi upset)
aspirin 81 mg Tablet,Delayed Release (Dr/Ec)
81 mg PO DAILY Qty: 30 0RF
amlodipine 10 MG tablet
10 mg PO DAILY Qty: 1 0RF
acetaminophen [Tylenol Extra Strength] 500 mg Tablet
1,000 mg PO Q6HPRN PRN (Reason: mild pain)
docusate sodium [Colace] 100 mg Capsule
100 mg PO BIDPRN PRN (Reason: constipation)
ondansetron 4 mg tablet,disintegrating
4 mg PO Q6H PRN (Reason: nausea and vomiting) Qty: 20 0RF
Referrals:
Peter Carr CRNP [Family Provider] -
Interventions
Interventions:
*Risk Screen - Suicide Last Done: 09/19/24 18:22
*General Assessment Last Done: 09/19/24 18:22
*Neglect/Abuse Screening Last Done: 09/19/24 18:22
*ED COVID-19 Vaccine History Last Done: 09/19/24 18:22
ED- Cardiac Assessment Last Done: 09/19/24 18:38
ED- Neurological Assessment Last Done: 09/19/24 18:38
ED- Pulmonary Assessment Last Done: 09/19/24 18:38
Discharge Date and Time
Print Language: SLOVENIAN
[2024-09-19] MEDS: NSS 1000 IV (19:35)
[2024-09-19 19:45] LABS: % Basophils 0.2 % (0-2); % Eosinophils 0.6 % (0-6); % Immature Granulocytes 0.6 % (0-0.5); % Lymphocytes 10.9 % (20.5-51.1); % Monocytes 12.3 % (1.7-9.3); % Neutrophils 75.4 % (42.2-75.2); Absolute Eosinophils 0.1 10^3/uL (0-0.7); Absolute Immature Granulocytes 0.1 10^3/uL (0-0.05); Absolute Monocytes 1.1 10^3/uL (0.1-0.6); Absolute Neutrophils 6.7 10^3/uL (1.4-6.5); Hematocrit 41.3 % (39.0-52.0); Hemoglobin 14.8 g/dL (13.0-18.0); Mean Corp Hgb Conc. 35.8 g/dL (33.0-37.0); Mean Corpuscular Hgb 31.4 pg (27.0-31.0); Mean Corpuscular Volume 87.7 fL (80.0-94.0); Mean Platelet Volume 9.1 fL (7.4-10.4); Nucleated Red Blood Cells % 0 % (-); Platelet Count 214 10^3/uL (130-400); Red Blood Cell Count 4.71 10^6/uL (4.70-6.10); Red Cell Dist. Width 12.8 % (11.5-14.5); White Blood Cell Count 8.9 10^3/uL (4.8-10.8)
[2024-09-19 19:57] LABS: ALT (SGPT) 20 U/L (0-50); AST (SGOT) 25 U/L (17-59); Albumin 4.5 g/dl (3.5-5.0); Alkaline Phosphatase 90 U/L (38-126); Blood Urea Nitrogen 28 mg/dl (9-20); Calcium 9.5 mg/dl (8.4-10.2); Carbon Dioxide 22 mmol/L (22-30); Chloride 106 mmol/L (98-107); Glucose 107 mg/dl (70-99); Lipase 26 U/L (23-300); Potassium 4.1 mmol/L (3.5-5.1); Sodium 139 mmol/L (135-145); Total Bilirubin 2.2 mg/dl (0.2-1.3); eGFR 57.29
[2024-09-19 20:01] LABS: Lactic Acid 0.9 mmol/L (0.7-2.0)
[2024-09-19 20:29] LABS: Urine Albumin 3+ (Neg - Trace); Urine Bilirubin Negative (Negative); Urine Character Clear (Clear); Urine Color Yellow; Urine Glucose Negative (Negative); Urine Ketone 2+ (Negative); Urine Leukocyte Negative (Negative); Urine Nitrite Negative (Negative); Urine Occult Blood 1+ (Negative); Urine Urobilinogen Negative (Neg - 1+)
[2024-09-19 20:50] LABS: Urine Hyaline Cast 0-2 /LPF (0-2); Urine Red Blood Cell 0-2 /HPF (0-2); Urine Squamous Cell 0-2 /LPF (Few); Urine White Cell 0-2 /HPF (0-5)
[2024-09-19] MEDS: ZOFRAN 4 MG IV (21:32)
--- NOTE | 2024-09-19 21:40 | HPS.HSE ---
Family Physician
-
Family Physician: SAÚL Hogan
Chief Complaint
-
n/v/d
confusion
History of Present Illness
73-year-old male with past medical history of hypertensive encephalopathy, left breast cancer, chronic back pain on opiates (buprenorphine patch)presents with nausea, vomiting and diarrhea since Monday. patient stated 4-5 episodes of diarrhea and
vomiting every day since then. denied abdominal pain. denied blood in the vomit or diarrhea. denied fever. stated chills today. patient was very confused since Monday. denied BARGER, dizzy or syncope.denied chest pain, sob. denied dysuria or hematuria.
He was seen at [facility] prior to this however his right arm IV infiltrated and he came here to the ER for further evaluation and continued workup.
admitting for further management.
Medical History
Past Medical History
Past Medical History: Reports Other
Additional Past Medical History:
HTN
b/l carotid stenosis
neville's esophagus
breast cancer
nonalcoholic fatty liver disease
BPH
Past Surgical History: Reports Other
Additional Past Surgical History:
total knee replacement
lap cholecystectomy
shoulder surgery
spinal stensosi surgery
left mastectomy
cystoscopy
TURP
Social History
Tobacco: Former Smoker
Alcohol: Former
Drug: None
Personal:
Living: With Family
Family History
Family History: Not pertinent
Allergies / Home Medications
Allergies reflects when Allergies were last updated in [facility].
Home Medications with original date entered in [facility]
Allergy/Medication List:
Allergies
Allergy/AdvReac Type Severity Reaction Status Date / Time
codeine Allergy Itching Verified 09/19/24 15:55
ibuprofen Allergy stomach Verified 09/19/24 15:55
pain
narcotics Allergy Patient in Uncoded 09/19/24 15:55
recovery
Home Medications
buprenorphine 15 mcg/hour weekly transdermal patch 15 mcg topical WE Pain 05/27/24
gabapentin 300 mg capsule 300 mg PO TID 05/27/24
terazosin 5 mg capsule 5 mg PO HS Urinary Issue 05/27/24
valsartan 320 mg tablet 160 mg PO DAILY Blood Pressure 05/27/24
amlodipine 10 mg tablet 10 mg PO DAILY Blood pressure #1 tab 06/03/24
aspirin 81 mg tablet,delayed release 81 mg PO DAILY Stroke #30 tabs 06/03/24
Review of Systems
-
Constitutional: Reports No Symptoms
EENT: Reports No Symptoms
Respiratory: Reports No Symptoms
Cardiac: Reports No Symptoms
Abdomen/GI: Reports Nausea, Vomiting and Diarrhea
: Reports No Symptoms
Musculoskeletal: Reports No Symptoms
Skin: Reports No Symptoms
Neurological: Reports No Symptoms
Endocrine: Reports No Symptoms
Hematologic/Lymphatic: Reports No Symptoms
Psych: Reports No Symptoms
Physical Exam
Vital Signs
Vital Signs
Temp Pulse Resp BP Pulse Ox
98.4 F 81 17 159/103 97
09/19/24 15:52 09/19/24 18:45 09/19/24 18:45 09/19/24 18:21 09/19/24 18:50
Physical Exam
General: Well Developed, Well Nourished and No Apparent Distress
HEENT: NormoCephalic, Moist mucous membranes and Atraumatic
Respiratory: Clear
Cardiac: S1/S2 and Regular Rhythm; No Murmur or Rub
GI: Soft, Non Tender, Non Distended and Normal Bowel Sounds; No Organomegaly
Rectal: Deferred by Provider
Musculoskeletal: No Clubbing, No Cyanosis and No Edema
Skin: No Rash
Neuro: AO x 3 and Nonfocal/grossly intact
Psych: Calm
Laboratory Results
-
09/19/24 19:29
09/19/24:
Laboratory Results
Lactic Acid 0.9 mmol/L (0.7-2.0) 09/19/24:
Total Bilirubin 2.2 mg/dl (0.2-1.3) H 09/19/24:
AST 25 U/L (17-59) 09/19/24:
ALT 20 U/L (0-50) 09/19/24:
Alkaline Phosphatase 90 U/L (38-126) 09/19/24
Lipase 26 U/L (23-300) 09/19/24:
Data Reviewed
-
Lab Data: Labs Reviewed by me
Impression/Plan
-
#N/V/D likely gastroenteritis
-COVID/influenza negative
-Clear liquid diet, advance as tolerated
-Zofran as needed for nausea vomiting
-Obtain stool cultures, stool for norovirus
#metabolic encephalopathy likely from gastroenteritis
-Head CT pending
-At present patient is alert awake and oriented x 3
#generalized weakness likely from nausea vomiting diarrhea
-PT/OT consulted
#Essential hypertension with hypertension emergency -emergency resolved
-Norvasc, terazosin valsartan continued
-hydralazine as needed for systolic BP greater than 140
# History of GERD, Neville's esophagus
- Pepcid
#Chronic low back pain/lumbar DDD, chronic opioid dependence
- cont buprenorphine patch
#HX BPH status post TURP with residual urinary retention
- on Terazosin
#Chronic peripheral neuropathy
-gabapentin continued
#HX Breast cancer 2014, status post left mastectomy.
#HX Fatty liver.
#HX hepatitis B.
#HX .Vitamin d deficiency.
Obesity due to excess calories
DVT prophylaxis: Lovenox subcu
CODE STATUS
-Full code
--- NOTE | 2024-09-19 22:02 | W.PN.UPDATE ---
Update Note
Progress Note Update
This is an addendum to the H&P written by Katlin Case on 09/19/2024. Patient seen and examined independently with [facility].
73-year-old male past medical history of encephalopathy, hypertension, GERD, Adams's esophagus, chronic lower back pain, chronic opiate dependence, BPH status post TURP with residual urinary retention, chronic peripheral neuropathy, breast cancer
in 2014 status post left mastectomy, fatty liver, vitamin D deficiency, obesity, presenting with fevers or chills, nausea and vomiting and diarrhea for past 3 days as well as confusion. Patient has been refusing blood pressure medication and blood
pressure has been high.
Patient recently admitted in July for metabolic encephalopathy thought to be secondary to gastroenteritis/hypertensive encephalopathy. Gastroenteritis was treated conservatively.
Patient initially with diastolic blood pressure up to 103. Labs unremarkable. CT head pending.
Patient with acute viral gastroenteritis and associated encephalopathy. Encephalopathy has improved. Blood pressures improved.
Clear liquid diet. Check stool studies. IV fluids given.
[2024-09-19] MEDS: NON-FORMULARY ITEM 15 MCG TOPICAL (23:37)
[2024-09-20 00:35] VITALS: BP 91/71
[2024-09-20] MEDS: HYTRIN 5 MG PO (01:26)
[2024-09-20] MEDS: ZOFRAN 4 MG IV (01:29)
[2024-09-20 03:04] VITALS: BP 147/99
[2024-09-20 03:21] VITALS: BMI 30.3
[2024-09-20 07:20] VITALS: BP 123/86
[2024-09-20] MEDS: NORVASC 10 MG PO (08:59)
[2024-09-20] MEDS: NEURONTIN 300 MG PO (08:59)
[2024-09-20] MEDS: ASPIR LOW (ENTERIC COATED) 81 MG PO (08:59)
[2024-09-20] MEDS: PEPCID 20 MG PO (08:59)
[2024-09-20] MEDS: DIOVAN 160 MG PO (08:59)
--- NOTE | 2024-09-20 10:23 | CM ---
CM reviewed chart, patient seen bedside with daughter, initial assessment completed. Patient resides with his in a single story home, two steps to enter. Patient denies DME, VN, or SNF history. Patient confirms PCP Rakesh Carr,
pharmacy [facility], confirms prescription coverage. [employer] form reviewed, provided with copy, placed in chart. CM will continue to follow for all discharge planning needs.
Plan; home no needs anticipated.
--- NOTE | 2024-09-20 12:50 | W.PN.HOSP.TC ---
Today's Communication/Plan
-
Advance diet as tolerated
Monitor blood pressure
Encourage compliance with medicines
Likely DC today if tolerating full meal
Assessment / Plan
Assessment / Plan
#Acute metabolic encephalopathy
-Suspect multifactorial secondary to dehydration/infection, hypertensive episode
-Has had previous occurrences of encephalopathy after viral GI illness, associations with high blood pressure
-CT head on arrival was negative for any signs of ICH or acute CVA
-His mental status rapidly improved and he is AO x 3 and at baseline this morning
-Will monitor his MSE while here
#Viral gastroenteritis
-COVID/influenza negative
-Clear liquid diet, advance as tolerated
-Zofran as needed for nausea vomiting
-Diarrhea resolved, no benefit to stool studies
-Asks for advancement of his diet
#generalized weakness likely from nausea vomiting diarrhea
-PT/OT consulted
#Essential hypertension with hypertension emergency -emergency resolved
-Norvasc, terazosin valsartan continued
-hydralazine as needed for systolic BP greater than 140
#History of GERD, Adams's esophagus
- Pepcid
#Chronic low back pain/lumbar DDD, chronic opioid dependence
- cont buprenorphine patch
#HX BPH status post TURP with residual urinary retention
- on Terazosin
#Chronic peripheral neuropathy
-gabapentin continued
#HX Breast cancer 2014, status post left mastectomy.
#HX Fatty liver.
#HX hepatitis B.
#HX Vitamin d deficiency.
#Obesity due to excess calories
DVT prophylaxis: Lovenox subcu
CODE STATUS Full code
Diet: ADAT
Anticipated Discharge: Within 24 hours
Subjective/Interval History
-
Date of Service: September 20, 2024
Seen and examined at the bedside. No acute events reported overnight. AFVSS as of this morning
States that he is been unable to provide stool sample as his diarrhea has stopped. Otherwise feels well and states he is thinking clearly.
Denies any new complaints today
Objective Data
-
Vital Signs:
Vital Signs
Temp Pulse Resp BP Pulse Ox
97.9 F 81 16 123/86 96
09/20/24 07:20 09/20/24 07:20 09/20/24 07:20 09/20/24 08:59 09/20/24 12:14
I&O
09/19/24 09/20/24 09/21/24
06:59 06:59 06:59
Intake Total 240 / 240
Balance 240 / 240
Review of Systems
-
History Source: Patient
All other systems: Reviewed and negative
Physical Exam
-
General: Well Developed, No Apparent Distress and Obese
HEENT: Normocephalic, Atraumatic and Moist Mucous Membranes
Respiratory: Clear to Auscultation and Non Labored Respirations
Cardiac: Regular Rhythm and S1/S2; Negative Murmur, Rub or Gallop
GI: Soft, Nontender, Nondistended and Normal Bowel Sounds
Musculoskeletal: No Clubbing, No Cyanosis and No Edema
Skin: Warm and Dry; Negative Rash
Neuro: AO x 3 and Nonfocal/Grossly Intact
Psych: Calm
Data Reviewed
-
Labs: Labs Reviewed by me and Discussed with Patient
[2024-09-20 14:38] VITALS: BP 115/62
--- NOTE | 2024-09-20 14:40 | W.DCSUMMARY ---
Discharge Summary
Discharge Data
Date of Admission: 09/19/24
Date of Discharge: 09/20/24
-
Pending Results: No
Hospital Course
Discharging Physician : Rodrigo Henriquez DO
Disposition : Home
Principal Discharge diagnosis : Transient metabolic encephalopathy, viral gastroenteritis, HTN, dehydration
Chronic Discharge diagnosis : History of left breast cancer s/p mastectomy, chronic low back pain on opiates, bilateral carotid stenosis, GERD C/B Adams's esophagus, s/p TURP, NAFLD
Hospital Course : 73-year-old male that presented to the hospital with encephalopathy, recent nausea and vomiting over multiple days, refusing to take home blood pressure medications. On arrival was clinically dry with signs of dehydration started
on IV fluids. CT head was without signs of transcortical infarction, ICH, mass effect. Resume on his own antihypertensive medications. Mental status quickly improved. Stool studies were ordered however patient's gastrointestinal symptoms have
resolved near time of arrival, was unable to provide stool sample for C. difficile testing, stool cultures, norovirus testing. As his symptoms resolved these would likely of no clinical utility and will cancel. Was monitored for signs of recurrent
symptoms or accelerations of blood pressure. Had previous instances of similar presentation to hospital with rapid improvement after viral gastroenteritis. Stated that he had follow-up appointment with family doctor and fur matcher within the
next 1 in 2 weeks. Was able to tolerate full meal without any recurrence of symptoms. Blood pressure was very well-controlled on his home regimen. Was discharged with outpatient follow-up and encouragement to attend his outpatient appointments.
Important imaging findings : None
Procedure findings : None
Follow-up: Nephrology in 2 weeks, family doctor in 1 week
Discharge Plan
-
Patient Disposition: Home (Routine Discharge)
Discharge Diagnosis/Procedures: Encephalopathy
Viral gastroenteritis
Dehydration
Hypertension
Condition: Good
Diet: No added salt
Additional Diets: 64 ounces of water intake daily
Activity: As tolerated
Driving Restrictions: No driving for 24 hours
Bathing Restrictions: None
Blood Work: None
Others Tests: Monitor home blood pressure 2-3 times daily, record values and a booklet and take them to your doctors appointments
Activity Restrictions/Additional Instructions:
Follow-up in office with your family physician and fur matcher after discharge. Keep your upcoming appointments and attend these in office
Instructions: Viral gastroenteritis in adults
Referrals:
Peter Carr CRNP [Family Provider] -
Raheel Kilgore DO [Active] -
Additional Discharge Medication Instructions: Use Zofran 4 mg as needed every 8 hours for nausea
Make sure to take your blood pressure medications as prescribed
Prescriptions:
New
ondansetron 4 mg tablet,disintegrating
4 mg PO Q8H PRN (Reason: nausea and vomiting) 5 Days Qty: 14 0RF
Continued
terazosin 5 mg capsule
5 mg PO HS
valsartan 320 mg tablet
160 mg PO DAILY
buprenorphine 15 mcg/hour patch weekly
15 mcg topical WE
gabapentin 300 MG capsule
300 mg PO TID
aspirin 81 mg Tablet,Delayed Release (Dr/Ec)
81 mg PO DAILY Qty: 30 0RF
amlodipine 10 MG tablet
10 mg PO DAILY Qty: 1 0RF
Discharge Orders:
Discharge Patient (As Directed); Ordered 09/20/24
Ordered By: Rodrigo Henriquez
Discharge Date and Time
Print Language: ICELANDIC
== END 2024-09-20 16:34 | disposition home or self-care (01) ==
LOC: 2 NORTH 22:25
PROVIDERS: Emergency Medicine; Nurse Practitioner; ADMITTING PHYSICIAN Hospitalist; ATTENDING PHYSICIAN Internal Medicine; EMERGENCY PHYSICIAN Emergency Medicine; FAMILY PHYSICIAN Nurse Practitioner Family
DX: A08.4 Viral intestinal infection, unspecified (principal); R53.1 Weakness; R50.9 Fever, unspecified; R11.2 Nausea with vomiting, unspecified; R53.83 Other fatigue; G93.41 Metabolic encephalopathy; I16.1 Hypertensive emergency; M51.360 Other intervertebral disc degeneration, lumbar region with discogenic back pain only; F11.20 Opioid dependence, uncomplicated; R19.7 Diarrhea, unspecified; G89.29 Other chronic pain; M54.9 Dorsalgia, unspecified; R10.9 Unspecified abdominal pain; R79.89 Other specified abnormal findings of blood chemistry; E86.0 Dehydration; R41.0 Disorientation, unspecified; K76.0 Fatty (change of) liver, not elsewhere classified; G62.9 Polyneuropathy, unspecified; E55.9 Vitamin D deficiency, unspecified; E66.09 Other obesity due to excess calories; N40.1 Benign prostatic hyperplasia with lower urinary tract symptoms; K21.9 Gastro-esophageal reflux disease without esophagitis; I10 Essential (primary) hypertension; R94.31 Abnormal electrocardiogram [ECG] [EKG]; Z79.82 Long term (current) use of aspirin; Z87.19 Personal history of other diseases of the digestive system; Z85.3 Personal history of malignant neoplasm of breast; Z91.148 Patient's other noncompliance with medication regimen for other reason; Z87.891 Personal history of nicotine dependence; Z88.6 Allergy status to analgesic agent; Z88.5 Allergy status to narcotic agent; Z68.30 Body mass index [BMI] 30.0-30.9, adult; Z11.52 Encounter for screening for COVID-19; Z90.79 Acquired absence of other genital organ(s)
CPT/HCPCS: 70450; 80053; 81003; 81015; 83605; 83690; 85025; 87502; 87811; 93005; 96374; 99285; G0378

== ENCOUNTER 2024-09-27 09:12 | Emergency (ER) | payer OTHER, SELFPAY ==
[2024-09-27 09:26] VITALS: BP 150/81
--- NOTE | 2024-09-27 11:18 | ED.GENMED ---
History of Present Illness
General
Chief Complaint: Visual Problem
Time Seen by Provider: 09/27/24 10:24
History of Present Illness
History of Present Illness:
73-year-old male presents the emergency department for evaluation of visual changes. For the past 3 weeks he has had visual loss to the right upper visual field. Symptoms have not changed over that time. He saw his eye doctor today who diagnosed
him with a partial retinal artery occlusion and sent him to the ED for further evaluation. He denies any other neurologic symptoms at this time. He is on baby aspirin but no other antiplatelets or anticoagulants
Past History
Past History
ED Past Medical History: Cancer (Left breast cancer), GERD, HTN, Other (Sigmoid diverticulitis March 2022; chronic low back pain/lumbar DDD, narcotic dependent) and Other (BPH; prior history of pain med addiction)
ED Past Surgical History: Cholecystectomy, Orthopedic, Urological (TURP December 2019) and Other (Mastectomy-left)
Social History
Tobacco: Former smoker
Alcohol: None
Drug: Former user
Personal:
Living: with family
Employment: Retired
Family History
Family History: Other (Noncontributory)
Review of Systems
Review of Systems
Allergies reviewed?: Yes
All Other Systems: ROS reviewed and negative except as documented in HPI and ROS
Phy Exam
Physical Exam
Physical Exam:
GEN: Well appearing, NAD, WDWN
HEENT: Oral mucosa moist, no scleral icterus, no nasal congestion
Cardiac: Regular rate
Lung: No respiratory distress, no tachypnea
MSK: No gross deformity or injuries
Skin: Good color, no pallor or jaundice, no rashes
Neuro: AO x3; CN II-XII grossly intact. BUE strength 5/5 in all escobar, sensation intact and symmetric. BLE strength 5/5 in all escobar, sensation intact and symmetric, loss of right upper visual field, otherwise visual escobar intact
Psych: Calm, cooperative
Course
Orders/Labs/Results
Orders:
Orders
09/27/24 09:32
CT Head W/o Iv Contrast Urgent
Comment:
Reason For Exam: R upper visual field disturbance
09/27/24 09:33
US Carotid [US Cerebrovascular] Urgent
Comment:
Reason For Exam: R upper visual field disturbance
Vital Signs
Initial and Last Documented VS:
Initial Vital Signs
Temp Pulse Resp BP Pulse Ox
98.0 F 77 16 150/81 100
09/27/24 09:26 09/27/24 09:26 09/27/24 09:26 09/27/24 09:26 09/27/24 09:26
Last Documented Vital Signs
Temp Pulse Resp BP Pulse Ox
98.0 F 60 18 129/64 99
09/27/24 09:26 09/27/24 11:38 09/27/24 11:38 09/27/24 11:38 09/27/24 11:38
MDM/Problems Addressed
MDM/Problems Addressed:
Carotid Doppler shows no significant change compared to prior, CT of the head reassuring. Discussed case with neuro, at this time no indication for additional antiplatelets. Patient is scheduled for outpatient MRI next week
*Critical Care Note
Total Time (30-74mins, 75-104mins- exclusive of procedures): Not Applicable
ED Attending Note
-
Portions of this chart may have been created with voice recognition software.� Occasional wrong word or��sound alike� substitutions may have occurred due to the inherent limitations of voice recognition software.
Discharge Plan
Departure
Patient Disposition: Home (Routine Discharge)
Date of Disposition: 09/27/24
Time of Disposition: 11:18
Patient with high blood pressure during this ER visit?: No
Discharge Problem:
Retinal artery branch occlusion of right eye
Instructions: Stroke - Discharge instructions
Prescriptions:
No Action
terazosin 5 mg capsule
5 mg PO HS
valsartan 320 mg tablet
160 mg PO DAILY
buprenorphine 15 mcg/hour patch weekly
15 mcg topical WE
gabapentin 300 MG capsule
300 mg PO TID
aspirin 81 mg Tablet,Delayed Release (Dr/Ec)
81 mg PO DAILY Qty: 30 0RF
amlodipine 10 MG tablet
10 mg PO DAILY Qty: 1 0RF
ondansetron 4 mg tablet,disintegrating
4 mg PO Q8H PRN (Reason: nausea and vomiting) 5 Days Qty: 14 0RF
Referrals:
Peter Carr CRNP [Family Provider] -
Activity Restrictions/Additional Instructions:
We discussed with the neurologist and at this point the only recommendation would be to add a cholesterol medicine, however as we discussed her cholesterol numbers have historically been normal so this may not be of benefit. Please discuss this
with your primary care physician. Follow-up with the eye doctor as planned. You do not need to keep your carotid ultrasound appointment as previously scheduled
Interventions
Interventions:
*Risk Screen - Suicide Last Done: 09/27/24 09:26
*General Assessment Last Done: 09/27/24 09:26
*Neglect/Abuse Screening Last Done: 09/27/24 09:26
*Nursing Disposition Last Done: 09/27/24 11:39
ED- Neurological Assessment Last Done: 09/27/24 11:35
ED-EENT Assessment Last Done: 09/27/24 11:35
Discharge Date and Time
Discharge Date/Time: 09/27/24 11:39
Print Language: CITIZEN OF [place]
[2024-09-27 11:38] VITALS: BP 129/64
== END 2024-09-27 11:39 | disposition home or self-care (01) ==
LOC: EMR 09:12
PROVIDERS: EMERGENCY PHYSICIAN Emergency Medicine; FAMILY PHYSICIAN Nurse Practitioner Family
DX: H34.231 Retinal artery branch occlusion, right eye (principal); K21.9 Gastro-esophageal reflux disease without esophagitis; I10 Essential (primary) hypertension; M51.369 Other intervertebral disc degeneration, lumbar region without mention of lumbar back pain or lower extremity pain; F11.20 Opioid dependence, uncomplicated; N40.0 Benign prostatic hyperplasia without lower urinary tract symptoms; Z79.82 Long term (current) use of aspirin; Z85.3 Personal history of malignant neoplasm of breast; Z87.891 Personal history of nicotine dependence; Z90.49 Acquired absence of other specified parts of digestive tract; Z90.79 Acquired absence of other genital organ(s)
CPT/HCPCS: 99284; 70450; 93880

== ENCOUNTER → 2024-10-02 12:49 | Outpatient (REF) | payer OTHER, SELFPAY | LOC: PAVMRI 12:49 | PROVIDERS: ATTENDING PHYSICIAN Nurse Practitioner Family | DX: H53.8 Other visual disturbances (principal); R09.89 Other specified symptoms and signs involving the circulatory and respiratory systems | CPT/HCPCS: 70551 ==

== ENCOUNTER → 2024-10-18 08:45 | Outpatient (REF) | payer OTHER, SELFPAY ==
[2024-10-18 10:14] LABS: Hemoglobin 13.5 g/dL (13.0-18.0)
[2024-10-18 10:30] LABS: NT-proBNP 219 pg/ml
[2024-10-18 10:32] LABS: ALT (SGPT) 20 U/L (0-50); AST (SGOT) 25 U/L (17-59); Albumin 4.6 g/dl (3.5-5.0); Alkaline Phosphatase 106 U/L (38-126); Blood Urea Nitrogen 14 mg/dl (9-20); Calcium 9.7 mg/dl (8.4-10.2); Carbon Dioxide 23 mmol/L (22-30); Chloride 104 mmol/L (98-107); Glucose 101 mg/dl (70-99); HDL Cholesterol 41 mg/dl; LDL Cholesterol, Calculated 61 mg/dl; Phosphorus 3.3 mg/dl (2.5-4.5); Potassium 4.4 mmol/L (3.5-5.1); Sodium 138 mmol/L (135-145); Total Bilirubin 1.4 mg/dl (0.2-1.3); Total Cholesterol 129 mg/dl (50-199); Total Protein 7.4 g/dl (6.3-8.2); Triglyceride 137 mg/dl (10-149); Very Low Density Lipoprotein 27 mg/dl (0-30); eGFR > 60.00
[2024-10-18 10:40] LABS: C-Reactive Protein < 5.00 mg/L (0.0-10.00)
[2024-10-18 11:04] LABS: Vitamin D, 25-OH*** 18.9 ng/mL (30-80)
[2024-10-18 11:13] LABS: Erythrocyte Sed Rate 12 mm/hour (0-20)
[2024-10-18 11:26] LABS: HIV Combo Negative (Negative)
[2024-10-18 11:55] LABS: Folate 6.3 ng/ml (2.76-20); Vitamin B12 238 pg/ml (239-931)
[2024-10-18 12:21] LABS: Protein/creatinine Ratio 0.1; Urine Protein 7 mg/dl
[2024-10-18 17:47] LABS: Syphilis/T. pallidum Ab Reflex Negative (Negative)
[2024-10-19 10:40] LABS: Intact PTH 138.6 pg/ml (13.6-85.8)
== END ==
LOC: REG 08:45
PROVIDERS: ATTENDING PHYSICIAN Specialist; FAMILY PHYSICIAN Nurse Practitioner Family; OTHER PHYSICIAN Ophthalmology; OTHER PHYSICIAN Psychiatry & Neurology Neurology; REFERRING PHYSICIAN Internal Medicine Interventional Cardiology
DX: R41.3 Other amnesia (principal); H34.11 Central retinal artery occlusion, right eye; N18.32 Chronic kidney disease, stage 3b; I10 Essential (primary) hypertension; N25.81 Secondary hyperparathyroidism of renal origin; I70.1 Atherosclerosis of renal artery; E78.5 Hyperlipidemia, unspecified
CPT/HCPCS: 36415; 80053; 80061; 82306; 82570; 82607; 82746; 83880; 83970; 84100; 84156; 84425; 84443; 85018; 85652; 86140; 86618; 86780; 87389

== ENCOUNTER → 2024-11-12 09:18 | Outpatient (REF) | payer OTHER, SELFPAY | LOC: HWWDC 09:18 | PROVIDERS: ATTENDING PHYSICIAN Internal Medicine Hematology & Oncology; FAMILY PHYSICIAN Nurse Practitioner Family | DX: Z12.31 Encounter for screening mammogram for malignant neoplasm of breast (principal) | CPT/HCPCS: 77063; 77067 ==

== ENCOUNTER 2024-12-08 15:43 | Inpatient (IN) | payer MEDICARE, OTHER, SELFPAY ==
[2024-12-08 11:39] VITALS: BP 172/89
[2024-12-08 11:51] VITALS: BMI 30.5
[2024-12-08 12:25] LABS: % Basophils 0.1 % (0-2); % Immature Granulocytes 0.8 % (0-0.5); % Lymphocytes 4.6 % (20.5-51.1); % Neutrophils 87.5 % (42.2-75.2); Absolute Immature Granulocytes 0.1 10^3/uL (0-0.05); Absolute Lymphocytes 0.4 10^3/uL (1.2-3.4); Absolute Monocytes 0.6 10^3/uL (0.1-0.6); Absolute Neutrophils 7.9 10^3/uL (1.4-6.5); Hematocrit 44.8 % (39.0-52.0); Hemoglobin 16.6 g/dL (13.0-18.0); Mean Corp Hgb Conc. 37.1 g/dL (33.0-37.0); Mean Corpuscular Hgb 31.8 pg (27.0-31.0); Mean Corpuscular Volume 85.8 fL (80.0-94.0); Mean Platelet Volume 9.3 fL (7.4-10.4); Nucleated Red Blood Cells % 0 % (-); Platelet Count 200 10^3/uL (130-400); Red Blood Cell Count 5.22 10^6/uL (4.70-6.10)
[2024-12-08 12:26] LABS: Urine Albumin 3+ (Neg - Trace); Urine Bilirubin Negative (Negative); Urine Character Clear (Clear); Urine Color Yellow; Urine Glucose Negative (Negative); Urine Ketone 3+ (Negative); Urine Leukocyte Negative (Negative); Urine Nitrite Negative (Negative); Urine Occult Blood 4+ (Negative); Urine Urobilinogen Negative (Neg - 1+)
--- NOTE | 2024-12-08 12:29 | ED.GENMED ---
History of Present Illness
General
Chief Complaint: Change in Mental Status
Source: patient, spouse and ambulance crew
Exam Limitations: clinical condition
Time Seen by Provider: 12/08/24 11:38
History of Present Illness
History of Present Illness:
This is 74-year-old male who presents with change in mental status. EMS reports that he has been taking oxycodone at home but recently did not take them. arrived later and states that she found that he took most of the bottle of oxycodone and
states he has been abusing them. She states he has had workups in the past for 'stroke' but suspects they were all related to opiates. Patient's states that she suspects she is in withdrawal. No reported vomiting. No reported fevers.
Patient is altered. Initially answered 'yes' to all questions including stating that he has 'pain everywhere'. states that she was about to take him to rehab today. The patient denies IV drug abuse. The patient's denies also
Past History
Past History
ED Past Medical History: Cancer (Left breast cancer), GERD, HTN, Other (Sigmoid diverticulitis March 2022; chronic low back pain/lumbar DDD, narcotic dependent) and Other (BPH; prior history of pain med addiction)
ED Past Surgical History: Cholecystectomy, Orthopedic, Urological (TURP December 2019) and Other (Mastectomy-left)
Social History
Tobacco: Former smoker
Alcohol: None
Drug: Former user (Former IV drug abuser)
Personal:
Living: with family
Employment: Retired
Family History
Family History: Other (Noncontributory)
Phy Exam
Physical Exam
Physical Exam:
CONSTITUTIONAL Patient alert and oriented to person. Confused. 100.8 temperature by rectal temp. Vital signs reviewed.
HEAD atraumatic, normocephalic.
EYES eyelids normal to inspection, Extraocular muscles intact, Conjunctiva normal, Sclera normal.
ENT small scab to the left nose with mild surrounding redness
NECK normal range of motion, Trachea midline, no jugular venous distention.
RESPIRATORY CHEST No respiratory distress noted, Chest expansion equal, Bilateral breath sounds clear.
CARDIOVASCULAR regular and tachycardic
ABDOMEN abdomen nontender, Bowel sounds normal. No distention.
BACK normal inspection, no obvious deformities
UPPER EXTREMITY range of motion normal, Motor strength normal, no cyanosis, no edema.
LOWER EXTREMITY range of motion normal, Motor strength normal, no cyanosis, no edema.
NEURO Speech normal, No focal motor deficits, Cranial Nerves intact to screening exam.
Sepsis
Sepsis Screening
Sepsis Assessment: Sepsis Ruled Out
Sepsis Screen
Sepsis Screen: Sepsis Ruled Out
Date: 12/09/24
Time: 13:09
Course
Orders/Labs/Results
Orders:
Orders
12/08/24 11:45
Acetaminophen [Tylenol] 1,000 mg PO NOW STA
CR Chest - 2 Views Urgent
Comment:
Reason For Exam: fever
12/08/24 12:15
Acetaminophen Urgent
Comment: ADD ON
Complete Blood Count/With Diff Urgent
Comprehensive Metabolic Panel Urgent
Direct Bilirubin Urgent
Comment: ADD ON
Fentanyl, Urine Urgent
Lactic Acid Q4H
Comment: CANCEL 2nd LACTIC ACID IF 1st LACTIC ACID IS LESS THAN 2
Magnesium Urgent
Comment: ADD ON
Phosphorus Urgent
Comment: ADD ON
Troponin I Urgent
Urinalysis Reflex To Culture Urgent
Date Specimen was Collected: 12/08/24
Time Specimen was Collected: 12:02
Urine Drug Abuse Screen Urgent
Date Specimen was Collected: 12/08/24
Time Specimen was Collected: 12:02
Urine Microscopic Reflex Cult Urgent
Blood Culture Q30M
EMILY Source: Blood/Venous
Specimen Description:
Blood Culture Q30M
EMILY Source: Blood/Venous
Specimen Description:
Influenza A+B Rapid Molecular Urgent
EMILY Source: Nasal Swab
Specimen Description:
12/08/24 12:16
COVID-19 Antigen Urgent
Source: Nasal Swab
12/08/24 12:32
CT Head W/o Iv Contrast Urgent
Comment:
Reason For Exam: change in MS
12/08/24 12:33
Add On- LAB Urgent
Tests Added?: tylenol level
12/08/24 13:00
Electrocardiogram (*1) Urgent
Reason for Study: TIA/Stroke
EKG- Treatment ONCE
12/08/24 13:37
Piperacillin/Tazo 4.5 Gram [Zosyn] 4.5 gram in 100 ml IV NOW
12/08/24 13:48
Add On- LAB Urgent
Tests Added?: urine drug screen
12/08/24 13:50
Vancomycin [Vancocin] 2,000 mg 0.9% Sodium Chloride 500 ml [Nss] 500 ml IV NOW
12/08/24 13:52
Add On- LAB Urgent
Tests Added?: Direct bilirubin , Mag, phos
12/08/24 14:51
Ondansetron Injectable [Zofran] 4 mg IV Q6HPRN PRN
Oxycodone [Roxicodone] 5 mg PO Q6H PRN
12/08/24 Dinner
Full Liquids
At Your Request: Full Participation
Does patient need a safe tray?: No
0.9% Sodium Chloride 1000 ml [Nss] 1,000 ml IV 100 mls/hr
12/08/24 15:05
Oxycodone [Roxicodone] 5 mg PO NOW STA
12/08/24 15:06
Admit/Transfer Patient As Directed
Co-Sign Provider:
Level of Care: Inpatient admission
Assign to:: Telemetry
Physician / Group: rocael cooley
Diagnosis: encep 2/2 opiate withdrawal, vomiting/withdrawal, hypok nonmi trop gerry
Reason for Telemetry: Arrhythmia
Date to Stop Telemetry: 12/11/24
Time to Stop Telemetry: 11:00
Reason for Hospitalization: encep 2/2 opiate withdrawal, vomiting/withdrawal, hypok nonmi trop gerry
Expected length of stay greater than two midnights?: Yes
ELOS- Estimated Length of Stay in days: 5
I certify the patient meets the requirements for IP care: Yes
Code Status As Directed
Resuscitation Status: Full Code
12/08/24 15:09
PRN Pain Medication Management As Directed
May give lesser potent ordered pain med per pt: Yes
preference::
Protocol:: Medication orders for pain may be administered in a
manner that supports deferring to patient preference
when the pt is:
- Requesting an ordered lesser potent pain medication.
Least to most potent pain medications are defined
as: acetaminophen < NSAID < tramadol < opioids
(morphine, oxycodone, hydromorphone).
- Requesting a lesser dose of the same medication IF
ORDERED.
- Requesting a less intrusive route of administration
if both routes are prescribed by the provider (PO <
IV).
12/08/24 15:10
HydrALAZINE [Apresoline] 10 mg IV Q6HPRN PRN
Advance Diet as Tolerated As Directed
Goal Diet: Regular
12/08/24 15:13
CARDIOLOGY CONSULT Routine
Consulting Provider: Chidi Reyes
Was physician already notified: Yes
Reason for consult: nonischemic trop elevation
12/08/24 15:54
Troponin I Urgent
12/08/24 16:39
Acetaminophen [Tylenol] 650 mg PO Q4HPRN PRN
Bisacodyl [Dulcolax] 10 mg RECTAL K25ITAT PRN
Docusate W/Senna [Senokot-S] 1 tablet PO BIDPRN PRN
Gabapentin [Neurontin] 300 mg PO BIDPRN PRN
Polyethylene Glycol Powder [Miralax] 17 grams PO DAILYPRN PRN
12/08/24 16:39
Activity As Directed
Activity Level: With Assistance
Neurological Checks As Directed
Frequency: q4h
Vital Signs As Directed
Frequency: Per unit guidelines
Pt Eval And Treat Routine
Activity Level: With Assistance
DX Deep Vein Thrombosis Video Routine
12/08/24 17:02
Pantoprazole [Protonix] 40 mg PO DAILYPRN PRN
12/08/24 20:00
Heparin 5,000 units SC Q12
12/08/24 22:00
Buprenorphine HCl [Belbuca] 150 mcg BUCCAL Q12H
Gabapentin [Neurontin] 600 mg PO HS
Terazosin [Hytrin] 5 mg PO HS
12/08/24 23:00
Oxycodone [Roxicodone] 5 mg PO Q6
12/09/24 07:48
Complete Blood Count/With Diff IN AM
Comprehensive Metabolic Panel IN AM
12/09/24 08:00
Amlodipine [Norvasc] 10 mg PO DAILY
Aspirin Low Dose EC [Aspir Low (Enteric Coated)] 81 mg PO DAILY
Calcitriol [Rocaltrol] 0.25 mcg PO MoWeFr@0800
Rosuvastatin Calcium [Crestor] 10 mg PO DAILY
Valsartan [Diovan] 160 mg PO DAILY
12/10/24 06:00
Complete Blood Count/With Diff IN AM
Comprehensive Metabolic Panel IN AM
12/11/24 06:00
Complete Blood Count/With Diff IN AM
Comprehensive Metabolic Panel IN AM
12/11/24 11:00
DC Protocol for Telemetry ONCE
12/12/24 06:00
Complete Blood Count/With Diff IN AM
Comprehensive Metabolic Panel IN AM
12/13/24 06:00
Complete Blood Count/With Diff IN AM
Comprehensive Metabolic Panel IN AM
Abnormal Lab Results
12/08/24
12:15
MCH 31.8 H pg
(27.0-31.0)
MCHC 37.1 H g/dL
(33.0-37.0)
Abs Immat Gran (auto) 0.1 H 10^3/uL
(0-0.05)
Absolute Neuts (auto) 7.9 H 10^3/uL
(1.4-6.5)
Absolute Lymphs (auto) 0.4 L 10^3/uL
(1.2-3.4)
Immature Gran % 0.8 H %
(0-0.5)
Neutrophils % 87.5 H %
(42.2-75.2)
Lymphocytes % 4.6 L %
(20.5-51.1)
Potassium 3.4 L mmol/L
(3.5-5.1)
Carbon Dioxide 21 L mmol/L
(22-30)
BUN 21 H mg/dl
(9-20)
Glucose 123 H mg/dl
(70-99)
Calcium 10.4 H mg/dl
(8.4-10.2)
Phosphorus 2.3 L mg/dl
(2.5-4.5)
Total Bilirubin 2.1 H mg/dl
(0.2-1.3)
Direct Bilirubin 0.7 H mg/dl
(0.0-0.4)
Troponin I 0.164 H* ng/ml
Total Protein 8.6 H g/dl
(6.3-8.2)
Albumin 5.1 H g/dl
(3.5-5.0)
Urine Ketones 3+ A
(Negative)
Ur Occult Blood Reflex 4+ A
(Negative)
Urine RBC 7-10 A /HPF
(0-2)
Urine Bacteria (Reflex) Few A
(Negative)
Urine Albumin (Reflex) 3+ A
(Neg - Trace)
Ur Oxycodone Screen Positive H
(Negative)
Acetaminophen < 10 L ug/ml
(10-30)
U Marijuana (THC) Screen Positive H
(Negative)
12/08/24 12:15
12/08/24 12:15
Vital Signs
Initial and Last Documented VS:
Initial Vital Signs
Temp Pulse Resp BP Pulse Ox
100.8 F H 117 18 172/89 99
12/08/24 11:39 12/08/24 11:39 12/08/24 11:39 12/08/24 11:39 12/08/24 11:39
Last Documented Vital Signs
Temp Pulse Resp BP Pulse Ox
98.6 F 95 20 156/89 99
12/09/24 11:31 12/09/24 11:31 12/09/24 11:31 12/09/24 11:31 12/09/24 11:31
Procedures
IV Access
Indication: Emergent access required
Performed by:: Dr. Suggs
Site:: Right upper arm
Gauge:: 18-gauge
Complications: Other (None)
Ultrasound Guidance: Yes
MDM/Problems Addressed
Differential Diagnosis Includes:
Electrolyte imbalance, pneumonia, UTI, opiate withdrawal, CVA
MDM/Problems Addressed:
Opiate abuse, metabolic cephalopathy, fever, elevated troponin
*Radiology
Radiology exam reviewed: all reviewed NAD by ED Provider
*Pulse Oximetry
Patient hypoxic: no
*EKG
Interpreted by ED Provider?: Yes
Interpretation: abnormal
Rate: tachycardiac
Rhythm: sinus
[place]: normal axis
Ischemia: non-specific ST changes
*Lead Material Handler Interpretation
Rate: tachycardiac
Interpretation: abnormal
Rhythm: sinus
*Critical Care Note
Total Time (30-74mins, 75-104mins- exclusive of procedures): 40 minutes
Data Reviewed
Review of Other/Old Records Reveals: Records (September discharge summary reviewed revealing change in mental status diagnosis with dehydration)
Source: patient and spouse
Further Testing Considered But Not Given:
Considered LP but patient is exhibiting no evidence of meningeal findings
Patient Management
Discussion with other providers: Hospitalist
Escalation/DeEscalation of care consider admission/obs:
Unclear as to whether this is related to opiate withdrawal or bacteremia or other infectious source. Will cover with antibiotics pending blood culture results. feels like this is similar to the past related to opiates. Patient denies IV drug
abuse. No obvious murmur. Troponin noted. does state his symptoms have really been ongoing for a few days since . EKG unchanged
ED Attending Note
-
Portions of this chart may have been created with voice recognition software.� Occasional wrong word or��sound alike� substitutions may have occurred due to the inherent limitations of voice recognition software.
Discharge Plan
Departure
Patient Disposition: Admit
Date of Disposition: 12/08/24
Time of Disposition: 13:36
Admit to: Telemetry
Presentation/result/management discussed w/ accepting MD/DO: Hospitalist
Discharge Problem:
Acute metabolic encephalopathy, Fever, Elevated troponin
Interventions
Interventions:
*Risk Screen - Suicide Last Done: 12/08/24 17:25
*General Assessment Last Done: 12/08/24 11:54
*Neglect/Abuse Screening Last Done: 12/08/24 11:51
*ED- Fall Risk Assessment Last Done: 12/08/24 11:51
*ED COVID-19 Vaccine History Last Done: 12/08/24 11:51
*Nursing Disposition Last Done: 12/08/24 16:57
ED-Psychological Assessment Last Done: 12/08/24 15:00
ED- Neurological Assessment Last Done: 12/08/24 14:00
ED Swallowing Screen Last Done: 12/08/24 14:00
Discharge Date and Time
Discharge Date/Time: 12/08/24 16:59
[2024-12-08 12:33] LABS: Urine Bacteria Few (Negative)
[2024-12-08 12:40] LABS: ALT (SGPT) 47 U/L (0-50); AST (SGOT) 37 U/L (17-59); Albumin 5.1 g/dl (3.5-5.0); Alkaline Phosphatase 99 U/L (38-126); Blood Urea Nitrogen 21 mg/dl (9-20); Calcium 10.4 mg/dl (8.4-10.2); Carbon Dioxide 21 mmol/L (22-30); Chloride 103 mmol/L (98-107); Estimated Creatinine Clearance 60 ml/min; Glucose 123 mg/dl (70-99); Lactic Acid 1.4 mmol/L (0.7-2.0); Potassium 3.4 mmol/L (3.5-5.1); Sodium 143 mmol/L (135-145); Total Bilirubin 2.1 mg/dl (0.2-1.3); Total Protein 8.6 g/dl (6.3-8.2); eGFR 56.93
[2024-12-08 12:59] LABS: Troponin I 0.164 ng/ml
[2024-12-08] MEDS: TYLENOL 1000 MG PO (13:00)
[2024-12-08 13:05] LABS: COVID-19 Antigen Negative (Negative)
[2024-12-08 13:23] LABS: Acetaminophen < 10 ug/ml (10-30)
--- NOTE | 2024-12-08 13:43 | W.PN.UPDATE ---
Addendum entered and electronically signed by Glenn Amador MD 12/08/24 15:01:
Addendum :
Given low probability if acute infective process, will hold off f further empiric ABX ( IV Vanco and Zosyn)
Original Note:
Update Note
Progress Note Update
This note serves as an addendum to the H&P by endband sizer DONALD Neisha DE OLIVEIRA
HPI
74M [facility] HX hypertensive encephalopathy, left breast cancer, chronic back pain on opiates (buprenorphine patch and gabapentin seen at ER:
- pw change in mental status.
- EMS reports that he has been taking oxycodone at home but recently did not take them.
- found that he took most of the bottle of oxycodone and he has been abusing them.
- states he has had workups in the past for 'stroke' but suspects they were all related to opiates.
- states that she suspects she is in withdrawal.
Patient is altered. Initially answered 'yes' to all questions including stating that he has 'pain everywhere'
The patient denies IV drug abuse. The patient's denies also
ROS
No reported vomiting.
PHX; see above
Reviewed VS:
12/08/24
11:39 12/08/24
11:51
Pulse 117
Blood pressure 172/89
SaO2 99
Oxygen Mode of Delivery Room air
Actual Weight 102 kg
Body Mass Index (BMI) 30.5
PE
Gen: alert , interactive, appropriate, noted slow cognitive speed, decreased attention felipe
HEENT: anicteric
Neck: supple
Lungs: CTA
Cor: RRR S1 S2 ST
Abdomen: soft NT NG
TRAVELING PASSENGER AGENT: AAO3, Nl speech , symmetric movement of all extremities
MS: no edema
Psych: suspect cognitive decline
Lab
12/08/24
12:15
WBC 9.0
Potassium 3.4 L
07/21/24 09/19/24 12/08/24
13:30 19:29 12:15
Total Bilirubin 2.4 H 2.2 H 2.1 H
AST 37
ALT 47
Alkaline Phosphatase 99
Troponin I 0.164 H*
Albumin 5.1 H
CXR
1. No radiographic evidence for pneumonia.
2. Mildly to moderately decreased bilateral lung volumes.
3. Moderate tortuosity of the thoracic aorta.
HCT W/o Iv Contrast
1. No CT evidence for acute intracranial hemorrhage or transcortical infarct.
2. SEVERE WHITE MATTER LEUKOARAIOSIS in the frontal and parietal lobes.
3. 2.1 cm focal region of encephalomalacia in the inferior periventricular left frontal lobe which is likely secondary to a chronic infarct which appears unchanged.
4. Mild diffuse cerebral and cerebellar volume loss.
5. Severe intracranial calcific atherosclerotic disease.
EKG
SINUS TACHYCARDIA WITH PREMATURE ATRIAL COMPLEXES
INFERIOR INFARCT (CITED ON OR BEFORE 29-MAY-2024)
ABNORMAL ECG
WHEN COMPARED WITH ECG OF 19-SEP-2024 16:03,
PREMATURE ATRIAL COMPLEXES ARE NOW PRESENT
NONSPECIFIC T WAVE ABNORMALITY NO LONGER EVIDENT IN ANTERIOR LEADS
Last hospitalist admission:
Date of Admission: 09/19/24
Date of Discharge: 09/20/24
Principal Discharge diagnosis : Transient metabolic encephalopathy, viral gastroenteritis, HTN, dehydration
Chronic Discharge diagnosis : History of left breast cancer s/p mastectomy, chronic low back pain on opiates, bilateral carotid stenosis, GERD C/B Adams's esophagus, s/p TURP, NAFLD
ASSESSMENT & PLAN
Pending Rx reconciliation
AMS with restlessness, decreased attention span likely evolving hyperactive encephalopathy of uncertain origin DDX: Prescription Oxycodone abuse /use vs WDS vs infective
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
HX Prescription pain Meds abuse disorder
HX prior TME
- observe MSAS
- NEG HCT for acute
- check UDS
- evaluation for acute infective patho as below
- Fall precaution
SIRS picture with Fever , Tachycardia ( Nl WCC. NEG UA. NEG CXR for PNA)
Uncertain source of SIRS Diff etiology : Non infectors ( Acute WDS of Buprenorphine patch or Opiates abuse ) vs. less likely infectious ( Viral , bacterial )
Of note; removed Buprenorphine patch since last ( 12/05/24)
- NEG Covid. NEG Flu A & B
- BCx sent
- check UDS
- empiric ABX: c/w IV Vanco and Zosyn for now
HX Opiates dependent chr LBP
HX prescription opiates abuse disorder
HX Chronic peripheral neuropathy
- on Gabapentin
- c/w EDUCATION SPEC Oxycodone
- f/u with [facility] ( [facility] )
Elevated TPNI 0.164
NOS abn EKG but no acute ischemic changes DDX: NTEMI vs NIMI
HX HLD, CVA and CAD on ASA and Rosuvastatin
- Trend TPN til peak
- Trend EKG for dynamic changes
- c/w ASA and Rosuvastatin
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
HX Fatty liver.
HX hepatitis B.
- split BB
- Trend LFT
Borderline hypokalemic K 3.4
HX CKD2 - 3a known occluded Lt MICKI and atrophic Lt Kdiney ( Ref: May 2024 Renal consult)
Baseline eGFR > 60
Cr 1.3 eGFR 56
- trend Cr
Essential hypertension with hypertension emergency -emergency resolved
- Norvasc, terazosin valsartan continued
- IV hydralazine as needed for systolic BP greater than 165
HX bilateral carotid stenosis
Known encephalomalacia due to old stroke at inferior periventricular left frontal lobe
HX left breast cancer s/p mastectomy 2014
HX GERD, Adams's esophagus
- Pepcid
HX BPH status post TURP with residual urinary retention
- on Terazosin
HX Vitamin d deficiency.
Obesity due to excess calories
DVT prophylaxis: LMWH
Full code
IP TLM
--- NOTE | 2024-12-08 13:50 | PHANOTE ---
Med rec note- called patient spouse patient stopped buprenorphine 15mcg patch and was to start belbuca 150mg bid films but has not started them, patient spouse also stated patient took a hand full of oxycodone on and became sick on Monday
--- NOTE | 2024-12-08 13:53 | HPS.HSE ---
Family Physician
-
Family Physician: NOT KNOW UNKNOWN - PT DOES
Chief Complaint
-
Confusion, opiate withdrawal x 3 days, vomiting retching x 3 days
History of Present Illness
74-year-old male who lives with his came by EMS for reports of abusing his oxycodone. His Heather told me today he had his oxycodone 10 mg filled on for 24 4 days ago from to Monday he consumed approximately 90 tablets of
oxycodone 10 mg. His states she was disgusted and annoyed with him and he agreed to throw them out she threw out his half empty bottle of oxycodone. He did visit his pain management on for 24 [facility] in [place]
and was changed to Belbuca 150 mcg twice daily sublingual due to allergic skin reactions from the buprenorphine 15 mg patch that he used to apply once a week on only. She states Monday afternoon he started vomiting and having dry heaves
then started to become confused late Monday evening. He has not had any narcotics since , 12/05/2024. He has been sober 17 years from [employer] beer 48-60 beers a week. He had history of IV drug use in his 20s she believes that how he had
contracted hepatitis B. His last inpatient treatment was at [facility] 17 years ago he was sober until 1 year ago in February 2024 when he started seeing pain management and they placed him on buprenorphine patch and then oxycodone tablets this past
July 2024. Patient is currently oriented to first and last name is extremely forgetful, restless sitting up in bed pulling things off having difficulty following commands. He is aware that he is confused he is unaware of when his confusion
started is unaware that he has a temperature. His states he has had 3 days of vomiting with dry heaves. She denies him reporting any chest pain, palpitations, cough, shortness of breath, headache, abdominal pain, diarrhea. He has macular
rashes on his bilateral arms and upper chest secondary to buprenorphine patches last 1 being removed on , 12/05/2024. He was due to go to drug rehab today his printed off places that take his insurance and put in his bag.
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 CVA, Raynaud's, ex-smoker, GERD, Adams's esophagus, hepatitis B 1970s, BPH with nocturia, osteoarthritis, left breast cancer status post left mastectomy 07/03/2015
Medical History
Past Medical History
Past Medical History: Reports Other
Additional Past Medical History:
chronic back pain pain on chronic oral opiates
history of recovering addict IVDA H 20s but on current prescription opiates since February 2024
Recovering alcoholic x 17 years
spinal stenosis
hypertension
CVA
Raynaud's
ex-smoker
GERD
Adams's esophagus
hepatitis B 1970s
BPH with nocturia
osteoarthritis,
left breast cancer status post left mastectomy 07/03/2015
Past Surgical History: Reports Other
Additional Past Surgical History:
Right knee meniscus repair 2008
Spinal stenosis surgery 2002
Right shoulder arthroscopy 2012
Left total knee arthroscopy 03/02/2021
Left mastectomy secondary to breast cancer 07/03/2015
Cholecystectomy status post laparoscopy 02/25/2016
TURP 12/2019
Social History
Tobacco: Non-smoker
Alcohol: Former (17 years)
Drug: IVDA (Age 20s) and Other (On current prescription narcotics)
Personal:
Living: With Family ( Heather of 36 years)
Family History
Family History: Other (Father alcoholic [place] CHF, mother [place], 1 brother sober 35 years, 1 sister healthy)
Allergies / Home Medications
Allergies reflects when Allergies were last updated in [employer].
Home Medications with original date entered in [employer]
Allergy/Medication List:
Allergies
Allergy/AdvReac Type Severity Reaction Status Date / Time
codeine Allergy Itching Verified 09/27/24 09:30
ibuprofen Allergy stomach Verified 09/27/24 09:30
pain
narcotics Allergy Patient in Uncoded 09/27/24 09:30
recovery
Home Medications
gabapentin 300 mg capsule 600 mg PO HS 05/27/24
terazosin 5 mg capsule 5 mg PO HS Urinary Issue 05/27/24
amlodipine 10 mg tablet 10 mg PO DAILY Blood pressure #1 tab 06/03/24
aspirin 81 mg tablet,delayed release 81 mg PO DAILY Stroke #30 tabs 06/03/24
buprenorphine 15 mg transdermal DIRECTED 12/08/24
buprenorphine HCl 150 mcg buccal film (Belbuca) 150 mcg buccal Q12H 12/08/24
calcitriol 0.25 mcg capsule 0.25 mcg PO MOWEFR 12/08/24
gabapentin 300 mg capsule 300 mg PO BIDPRN PRN mild pain 12/08/24
omeprazole 20 mg tablet,delayed release 20 mg PO DAILYPRN PRN gerd 12/08/24
oxycodone 10 mg tablet 10 mg PO Q6HPRN PRN severe pain 12/08/24
rosuvastatin 10 mg tablet (Crestor) 10 mg PO DAILY 12/08/24
valsartan 160 mg tablet 160 mg PO DAILY 12/08/24
Review of Systems
-
History Source: Patient and Family ( Heather via phone)
A 12 point ROS was completed and negative except as noted: Yes
Constitutional: Reports Fever, Chills and Other (Confusion oriented to name only)
EENT: Denies Sore Throat or Runny Nose
Respiratory: Denies Cough or Trouble Breathing
Cardiac: Denies Chest Pain, Diaphoresis, Palpitations or Syncope
Abdomen/GI: Reports Nausea and Vomiting; Denies Abdominal Pain, Diarrhea, Constipated, Bloody Stools or Black Stools
: Denies Dysuria, Frequency, Flank Pain, Incontinence or Urgency
Musculoskeletal: Denies Joint Pain or Edema
Skin: Reports Rash (To arms and upper chest from buprenorphine patch which was discontinued on 12/05 changed to oral Belbuca sublingual); Denies Itching
Neurological: Denies Dizzy, Headache or Weakness
Endocrine: Reports No Symptoms
Hematologic/Lymphatic: Reports No Symptoms
Psych: Reports Other (Confused, restless attempting to get out of bed pulled off gown, monitor leads)
Physical Exam
Vital Signs
Vital Signs
Temp Pulse Resp BP Pulse Ox
100.8 F H 117 18 172/89 99
12/08/24 11:39 12/08/24 11:39 12/08/24 11:39 12/08/24 11:39 12/08/24 11:39
Physical Exam
General: Conversant, Fever, Chills and Other (Confused, restless attempting to get out of bed pulled off gown, monitor leads)
HEENT: NormoCephalic, Anicteric, Moist mucous membranes, PERRLA, [place] Conjunctivae and No Ptosis
Respiratory: Clear; No Wheezes, Rales or Rhonchi
Cardiac: S1/S2 and Tachycardia (Sinus); No Murmur, Rub, Gallop or Peripheral Edema
Breast: Deferred by me
GI: Soft, Non Tender, Non Distended, Normal Bowel Sounds and No Hepatosplenomegaly
Rectal: Deferred by Provider
Genito-urinary: Deferred by me
Musculoskeletal: No Clubbing, No Cyanosis and No Edema
Skin: Warm, Dry and Rash (Arms and upper chest due to buprenorphine patch which was DC'd on 12/05/2024 changed to Belbuca film not taken yet)
Neuro: No Motor Deficits, No Sensory Deficits and Other (Confused but oriented to name, restless attempting to get out of bed pulled off gown, monitor leads); No Slurred Speech, Facial Droop, Tremors or Sedated
Psych: Confused (With restlessness)
Laboratory Results
-
12/08/24 12:15
12/08/24 12:15
Laboratory Results
Lactic Acid 1.4 mmol/L (0.7-2.0) 12/08/24 12:15
Total Bilirubin 2.1 mg/dl (0.2-1.3) H 12/08/24 12:15
AST 37 U/L (17-59) 12/08/24 12:15
ALT 47 U/L (0-50) 12/08/24 12:15
Alkaline Phosphatase 99 U/L (38-126) 12/08/24 12:15
Troponin I 0.164 ng/ml H* 12/08/24 12:15
Data Reviewed
-
Diagnostic Radiology: Report Reviewed by me
Lab Data: Labs Reviewed by me
Impression/Plan
-
Impression/plan:
Admit to telemetry
#Encephalopathy secondary to fever, possibly opiate withdrawal
# SIRS of unclear etiology likely withdrawal opiates
WBC 9, temp 100.8 F, HR 117, 172/89
COVID/influenza negative
UA/CXR negative
-Tylenol level<10
- Blood cultures x 2, check lactic acid
- IV vancomycin IV Zosyn Hold further until blood culture results post
- Tylenol given in ER for temperature
starr need CASE mgmt whn ready for D/c pt Wants inpt rehab, List of Places in his bag that accept his insurance
CXR:1. No radiographic evidence for pneumonia.
2. Mildly to moderately decreased bilateral lung volumes.
3. Moderate tortuosity of the thoracic aorta.
CT head:
1. No CT evidence for acute intracranial hemorrhage or transcortical infarct.
2. SEVERE WHITE MATTER LEUKOARAIOSIS in the frontal and parietal lobes.
3. 2.1 cm focal region of encephalomalacia in the inferior periventricular left frontal lobe which is likely secondary to a chronic infarct which appears unchanged.
4. Mild diffuse cerebral and cerebellar volume loss.
5. Severe intracranial calcific atherosclerotic disease.
#Acute opiate withdrawal causing confusion
#Hx opiate abuse/withdrawal
#Chronic back pain/spinal stenosis/neuropathy
#History of recovering addict to pain meds 17 years ago however is on chronic oral opiates
-Patient without any opiates since evening of 12/05/2024 3 days ago
-Check urine drug screen
-Buprenorphine patch 15 mg was stopped on 12/05/2024 due to skin rashes changed to Belbuca 150 mcg sublingual tabs twice daily but not started yet according to
- Patient on oxycodone 10 mg p.o. every 6 hours as needed severe pain took approximate 90 tablets on 12/05/2024
-Will resume oxycodone 5 mg every 6 hours scheduled then 5 mg every 6 as needed breakthrough pain
-Continue gabapentin 600 mg p.o. at bedtime and 300 mg twice daily as needed mild pain
#Hypertension accelerated secondary likely to withdrawal
BP 172/89-patient did not take any a.m. medications
-Continue valsartan 160 mg p.o. daily, amlodipine 10 mg daily
- IV hydralazine 10 mg every 6 hours SBP > 165
#Hypokalemia
K3.4
Will give KCl 40 mEq
#Nonischemic myocardial injury
Troponin 0.164 will trend
-Consult CBC cardiology
EKG: Sinus tach with PACs heart rate 110 bpm, QTc 460 MS otherwise normal
2D echo 04/12/2024: EF 55 to 60%, no wall abnormalities, normal RVS RV SF, proximal ascending aorta 4 cm
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
# Severe left renal atrophy with 100% occluded renal artery
# Secondary hyperparathyroidism.
#Hypercalcemia
Calcium 10.4
-Continue Calcitrol 0.25 mcg p.o. MOWEFR
#Hx hepatitis B in the 1970s from IVDA
#Hyperbilirubinemia concern
T. bili 2.1 will check direct bilirubin
#GERD/Adams's esophagus
-Continue omeprazole 20 mg daily patient takes as needed
#Hx CVA
CT head showing left frontal lobe chronic infarct with severe white matter leukoaraiosis in the frontal and parietal lobes
-Continue aspirin 81 mg daily, Crestor 10 mg daily
#BPH with nocturia
#Status post TURP 01/01/2020
Continue terazosin 5 mg at bedtime
Other PMH:
Raynaud's
Osteoarthritis
left breast cancer status post left mastectomy 07/03/2015
DVT prophylaxis
Subcu heparin
Full code per Heather via phone
[2024-12-08] MEDS: ZOSYN 100 IV (14:00)
[2024-12-08 14:09] LABS: Direct Bilirubin 0.7 mg/dl (0.0-0.4); Magnesium 1.9 mg/dl (1.6-2.3); Phosphorus 2.3 mg/dl (2.5-4.5)
[2024-12-08 15:11] LABS: Amphetamines Negative (Negative); Barbiturates Negative (Negative); Benzodiazepines Negative (Negative); Buprenorphine Negative (Negative); Cocaine Negative (Negative); Marijuana Positive (Negative); Methadone Negative (Negative); Methamphetamines Negative (Negative); Opiates Negative (Negative); Phencyclidine Negative (Negative); Tricyclic Antidepressants Negative (Negative)
[2024-12-08 15:26] LABS: Fentanyl, Urine Negative (Negative)
[2024-12-08] MEDS: VANCOCIN 540 MG IV (15:36)
[2024-12-08] MEDS: ROXICODONE 5 MG PO ×3 (15:41→23:24)
[2024-12-08 16:30] LABS: Troponin I 0.159 ng/ml
[2024-12-08] MEDS: NSS 1000 IV (17:13)
[2024-12-08 17:14] VITALS: BP 166/141; BMI 30.5
[2024-12-08] MEDS: APRESOLINE 10 MG IV (17:21)
--- NOTE | 2024-12-08 18:16 | W.PN.UPDATE ---
Update Note
Progress Note Update
Received [place] text from nurse Coleen Honeycutt
Hypertension
patient with BP 166/114
Will change to Lopressor 5 mg now and 5 mg every 6 hours HR> 120 and/or SBP> 165
Sinus tachycardia due to likely withdrawal
Repeat temp was 99.8 per nurse
heart rate 130s he did receive dose of IV hydralazine
Will change to Lopressor 5 mg now and 5 mg every 6 hours HR> 120 and/or SBP> 165
[2024-12-08] MEDS: LOPRESSOR 5 MG IV (18:29)
--- NOTE | 2024-12-08 18:33 | PTCARENOTE ---
rec'd pt from ER. Walked from stretcher to bed. is confused. unable to tell me where he is or the date. attempts made to reorient. COW score an 8. Pt with initial bp of 166/114. prn hydralazine given. Pt's heart rate then starting bursting up to
the 140s. Neisha BASHIRNP aware. asked to have temp checked which was 99.8. She believes tachycardia is from withdrawal and will improve once he has a few doses of oxycodone in him. She did discontinue hydralazine and ordered prn Lopressor as well
as a stat dose of 5MG. Pt did eat dinner with assistance of [employer]. NSS infusing at 100ml/hr. Vancomycin from ER still infusing. Attempt made to do admission questions but he wasn't able to answer all of them. not at bedside with patient. Bed
alarm in place. Pt given call [facility] and was instructed on how to use it.
--- NOTE | 2024-12-08 19:11 | CON.CAR ---
Consultation
Consultation Request
Date/Time Consultation Requested: December 08, 2024 3:15 PM
Date/Time Consultation Performed: December 08, 2024 6:30 PM
Requesting Provider: Hospitalist
Performing Provider: Chidi Reyes
Reason for Consultation: Elevated troponin
Medical History
-
Chief Complaint: Abdominal pain
History of Present Illness:
74-year-old male with past medical history of chronic pain on oral opiates, IV drug abuse in his 20s and recovering alcoholic, hypertension, CVA, former smoker, osteoarthritis, and breast cancer status post mastectomy in 2014 who is here for opiate
withdrawal. The majority of the history is obtained from chart review as he is confused. Apparently, the patient got a new prescription of oxycodone on and according to the he consumed approximately 90 tablets. This was oxycodone 10
mg. She then throughout the bottle and the rest of the medication. At time of interview he was confused and restless. He tells me he does have abdominal pain and right-sided chest pain. Upon exam his chest pain is recent producible to palpation.
However, he is unable to describe his chest pain and only is able to tell me that is very bad.
Past Medical History
Past Medical History: Other (chronic pain on oral opiates, IV drug abuse in his 20s and recovering alcoholic, hypertension, CVA, former smoker, osteoarthritis, and breast cancer status post mastectomy in 2014 )
Past Surgical History: Other (v)
Social History
Tobacco: Former Smoker
Alcohol: Former
Drug: IVDA (in 20s)
Personal:
Living: With Family
Employment: Retired
Family History
Family History: Unable to Obtain
Allergies / Home Medications
Allergy/AdvReac Type Severity Reaction Status Date / Time
codeine Allergy Itching Verified 09/27/24 09:30
ibuprofen Allergy stomach Verified 09/27/24 09:30
pain
narcotics Allergy Patient in Uncoded 09/27/24 09:30
recovery
�Medication �Instructions �Recorded �Confirmed �Type
gabapentin 300 mg capsule 600 mg PO HS 05/27/24 12/08/24 History
terazosin 5 mg capsule 5 mg PO HS Urinary Issue 05/27/24 12/08/24 History
amlodipine 10 mg tablet 10 mg PO DAILY Blood pressure #1 06/03/24 12/08/24 Rx
tab
aspirin 81 mg tablet,delayed 81 mg PO DAILY Stroke #30 tabs 06/03/24 12/08/24 Rx
release
buprenorphine 15 mg transdermal DIRECTED 12/08/24 12/08/24 History
buprenorphine HCl 150 mcg buccal 150 mcg buccal Q12H 12/08/24 12/08/24 History
film (Belbuca)
calcitriol 0.25 mcg capsule 0.25 mcg PO MOWEFR 12/08/24 12/08/24 History
gabapentin 300 mg capsule 300 mg PO BIDPRN PRN mild pain 12/08/24 12/08/24 History
omeprazole 20 mg tablet,delayed 20 mg PO DAILYPRN PRN gerd 12/08/24 12/08/24 History
release
oxycodone 10 mg tablet 10 mg PO Q6HPRN PRN severe pain 12/08/24 12/08/24 History
rosuvastatin 10 mg tablet (Crestor) 10 mg PO DAILY 12/08/24 12/08/24 History
valsartan 160 mg tablet 160 mg PO DAILY 12/08/24 12/08/24 History
Review of Systems
-
All other systems: Negative unless noted
Physical Exam
Vital Signs
Temp Pulse Resp BP Pulse Ox
99.2 F 147 21 166/114 97
12/08/24 17:14 12/08/24 18:29 12/08/24 17:14 12/08/24 18:29 12/08/24 17:14
Lab Results
12/08/24 12:15
12/08/24 12:15
Troponin I 0.159 ng/ml H* 12/08/24 15:54
Physical Exam
General: No Apparent Distress
HEENT: Normocephalic
Respiratory: Clear and Non Labored Respirations
Cardiac: S1/S2, Regular Rhythm and Other (Chest tenderness to palpation over right side )
GI: Soft
Musculoskeletal: No Edema
Skin: Warm and Dry
Neuro: AO x 3 (oriented to person and place confused on details )
Psych: Confused
Impression / Plan
-
74-year-old male with past medical history of chronic pain on oral opiates, IV drug abuse in his 20s and recovering alcoholic, hypertension, CVA, former smoker, osteoarthritis, and breast cancer status post mastectomy in 2015 who is here for opiate
withdrawal.
Elevated troponin
- Likely nonischemic myocardial injury, however, will obtain Echo in AM
- peak was .164
- ECG sinus tach
Opiate withdrawal
- per primary
Echo Apr 12 2024: CONCLUSIONS
LV ejection fraction is 55-60%. No regional wall motion abnormalities are seen.
Normal right ventricular size and function.
Aortic sclerosis without stenosis.
Proximal ascending aorta is 4.0 cm.
Compared to previous echo on 05/04/2020, the ascending aorta previously measured
3.6 cm.
Data Reviewed
-
EKG: Tracing Personally Visualized and interpreted (sinus)
Medical Tests (Nuc Med, Echo etc): Report Reviewed by me
Labs: Labs Reviewed by me
[2024-12-08 19:15] VITALS: BP 182/98
[2024-12-08] MEDS: NEURONTIN PO (21:18)
[2024-12-08] MEDS: HYTRIN PO (21:20)
[2024-12-08] MEDS: HEPARIN 5000 UNITS SC (21:20)
--- NOTE | 2024-12-08 21:30 | PTCARENOTE ---
Attempted to give patient crushed medication in apple sauce, patient spitting out medicine into hand then throwing onto bed. Patient unable to follow direction at this time, attempted medications whole with water and supervised intake - patient able
to take PO medications whole with thins without s/sx of aspiration.
~ 2200 Patient ordered 150mcg of buccal buprenorphine, patient tolerated administration but unable to follow instruction and keep patch inside of mouth/cheek and started to chew on of the buccal films. RN at bedside until films dissolved.
[2024-12-08] MEDS: ZOFRAN 4 MG IV (22:06)
[2024-12-08] MEDS: BELBUCA 150 MCG BUCCAL (22:07)
[2024-12-08] MEDS: HYTRIN 5 MG PO (22:07)
[2024-12-08] MEDS: NEURONTIN 600 MG PO (22:07)
[2024-12-08 23:39] VITALS: BP 144/86
[2024-12-09] MEDS: NSS 1000 IV ×2 (02:58→06:36)
[2024-12-09 03:42] VITALS: BP 186/99
[2024-12-09] MEDS: ROXICODONE PO (05:37)
[2024-12-09 05:55] VITALS: BMI 30.7
[2024-12-09] MEDS: LOPRESSOR 5 MG IV ×2 (06:33→21:34)
[2024-12-09] MEDS: HEPARIN 5000 UNITS SC ×2 (08:00→21:46)
[2024-12-09] MEDS: PROTONIX 40 MG PO (08:01)
[2024-12-09] MEDS: ASPIR LOW (ENTERIC COATED) 81 MG PO (08:01)
[2024-12-09] MEDS: NORVASC 10 MG PO (08:03)
[2024-12-09] MEDS: DIOVAN 160 MG PO (08:05)
[2024-12-09] MEDS: CRESTOR 10 MG PO (08:05)
--- NOTE | 2024-12-09 08:06 | W.PN.CD ---
Today's Communication / Plan
-
Follow-up echo today.
Assuming echo has no new regional wall motion abnormalities and normal LVEF, cardiology will sign off. Please call with any additional questions or concerns.
Impression / Plan
-
74-year-old male with past medical history of chronic pain on oral opiates, IV drug abuse in his 20s and recovering alcoholic, hypertension, CVA, former smoker, osteoarthritis, and breast cancer status post mastectomy in 2015 who is here for opiate
withdrawal. Cardiology is consulted for elevated troponin.
Elevated troponin
- Likely nonischemic myocardial injury due to hypertension in the setting of opioid withdrawal
- peak was .164, now downtrending. No chest pain. ECG sinus tach with no ischemia
- Follow-up echo today
Opiate withdrawal
- per primary
Echo Apr 12 2024: CONCLUSIONS
LV ejection fraction is 55-60%. No regional wall motion abnormalities are seen.
Normal right ventricular size and function.
Aortic sclerosis without stenosis.
Proximal ascending aorta is 4.0 cm.
Compared to previous echo on 05/04/2020, the ascending aorta previously measured
3.6 cm.
Subjective: Feels well this morning. No chest pain.
Telemetry: Normal sinus rhythm with PACs and intermittent SVT. No atrial fibrillation.
Physical Exam
Vital Signs/Labs
Vital Signs
Temp Pulse Resp BP Pulse Ox
98.9 F 94 22 187/107 99
12/09/24 03:42 12/09/24 08:03 12/09/24 03:42 12/09/24 08:03 12/09/24 03:42
12/08/24 12/09/24 12/10/24
06:59 06:59 06:59
Actual Weight 214 lb 4.8 oz
Magnesium 1.9 mg/dl (1.6-2.3) 12/08/24 12:15
LAB Results
12/08/24 12/08/24 12/08/24
12:15 15:54 18:00
Troponin I 0.164 H* 0.159 H* Cancelled
Physical Exam
Constitutional: No acute distress and Comfortable
Cardiovascular: Rhythm & rate is regular, Pedal edema is absent, S1S2 is normal and Murmur/rub/gallop absent
Respiratory: Respiratory effort normal and Lungs clear to auscul.
Neuro/Psych: AO x 3
Data Reviewed
-
Date of Service: December 09, 2024
Medical Decision Making: Reviewed Test Results, Independent Historian Assessment, Test Interpretation and Review of Case with other Provider
EKG: Tracing Personally Visualized and interpreted
Echo: Report Reviewed by me
Labs: Labs Reviewed by me
[2024-12-09] MEDS: ROCALTROL 0.25 MCG PO (08:17)
--- NOTE | 2024-12-09 08:18 | W.PN.HOSP.TC ---
Today's Communication/Plan
-
-Thyroxine ordered
-Follow up vitals
Assessment / Plan
Assessment / Plan
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
with his mental status complicated with opioid withdrawal
Impression
-Acute mental status change
-Opioid withdrawal complicated with elevated BP and HR
-Abnormal EKG changes
-Elevated troponin levels
-Hypokalemia
-Hyperbilirubinemia
-History of hepatitis B
-History of alcohol use
-Chronic kidney disease
-Hx of left breast cancer status post left mastectomy 07/03/2015
-History of-hyperparathyroidism
-History of CVA
- History of chronic back pain with spinal stenosis
- History of BPH post status TURP
- History of Reynaud`s
- GERD
Plan
#Acute mental status change
-Resolved
-Head CT at admission: No CT evidence for acute intracranial hemorrhage or transcortical infarct/SEVERE WHITE MATTER LEUKOARAIOSIS in the frontal and parietal lobes./2.1 cm focal region of encephalomalacia in the inferior periventricular left
frontal lobe which is likely secondary to a chronic infarct which appears unchanged.
- Likely secondary to opioid abuse and withdrawal
# Opiate withdrawal
-Patient without any opiates since evening of 12/05/2024 3 days ago
-UDS 12/08/24:Oxycodone positive, THC positive, on previous UDS on 05/29/2024:
-Buprenorphine patch 15 mg was stopped on 12/05/2024 due to skin rashes changed to Belbuca 150 mcg sublingual tabs twice daily but not started yet according to
-Patient on oxycodone 10 mg p.o. every 6 hours as needed severe pain took approximate 90 tablets on 12/05/2024
-Continue oxycodone 5 mg every 6 hours scheduled then 5 mg every 6 as needed breakthrough pain
-Continue gabapentin 600 mg p.o. at bedtime and 300 mg twice daily as needed mild pain
#Hypertension
- Opioid withdrawal accelerating
-Continue valsartan 160 mg p.o. daily, amlodipine 10 mg daily
- Lopressor 5 mg every 6 hours HR> 120 and/or SBP> 165
- Clonidine 0.1 mg every Q6H can be considered
#Elevated troponin likely secondary to opioid withdrawal complicated with nonischemic myocardial injury
-Patient was seen by cardiology
- Considered having likely nonischemic myocardial injury due to hypertension in the setting of opioid withdrawal
- Troponin levels downtrending. No chest pain. ECG sinus tach with no ischemia
- 2D echo 04/12/2024: EF 55 to 60%, no wall abnormalities, normal RVS RV SF, proximal ascending aorta 4 cm
- Another echo ordered bradycardia this a.m.
# EKG changes
- No chest pain this a.m.
-Telemetry: Normal sinus rhythm with PACs and intermittent SVT. No atrial fibrillation
- Heart rates trending down comparing to admission
#Hypokalemia
- Potassium level was found 3.4 at admission and given KCl 40 mEq
-Resulted as 3.3 on 12/09/24 and ordered 40 mEq [facility]
- Follow-up BMP/replace potassium to keep >4
# History of alcohol use disorder
-On MSAS protocol
#Hx of Chronic back pain/spinal stenosis/neuropathy
#CKD 2/3A
-Cr 1.3 likely at baseline
-Follow up BMP
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
#Hypercalcemia
-Resolved-Calcium 9.2
-Hx of hyperparathyroidism
-Follw up ca level
-Continue Calcitrol 0.25 mcg p.o. MOWEFR
-PTH 138.6//TSH 0.40 -T4 ordered
#Hyperbilirubinemia
-Hx hepatitis B in the 1970s from [facility]
-AST and ALT level in WNL
-T. bili 2.1 on 12/08 and trended down to 1.6 -DB 0.7
-Follow-up CMP and bilirubin levels
-Abdominal US can be considered based on follow-up
#Deficiency of Vit B12 and Vitamin D
-Replacement
-Follow up with PCP
#GERD/Adams's esophagus
-Continue omeprazole 20 mg daily patient takes as needed
#Hx CVA
CT head showing left frontal lobe chronic infarct with severe white matter leukoaraiosis in the frontal and parietal lobes
-Continue aspirin 81 mg daily, Crestor 10 mg daily
#BPH with nocturia
-Status post TURP 01/01/2020
-Continue terazosin 5 mg at bedtime
#Raynaud's
#Osteoarthritis
#left breast cancer status post left mastectomy 07/03/2015
DVT prophylaxis:SC heparin
Full code per Heather via phone
Anticipated Discharge: 24 - 48 hours
Subjective/Interval History
-
Date of Service: December 09, 2024
Patient reports feeling much better. Denies chest and abdominal pain. Denies recent alcohol consuming and reports his last use was long time ago. Reports he stopped using buprenorphine patch on and was switched to buccal form. however he
reported he never used them yet.
Objective Data
-
Labs:
Laboratory Results
12/09/24
07:48
WBC Pending
Hgb Pending
Hct Pending
Plt Count Pending
Sodium Pending
Potassium Pending
Chloride Pending
Carbon Dioxide Pending
BUN Pending
Creatinine Pending
Glucose Pending
Calcium Pending
Total Bilirubin Pending
AST Pending
ALT Pending
Alkaline Phosphatase Pending
Vital Signs:
Vital Signs
Temp Pulse Resp BP Pulse Ox
98.9 F 94 22 187/107 99
12/09/24 03:42 12/09/24 08:03 12/09/24 03:42 12/09/24 08:03 12/09/24 03:42
I&O
12/08/24 12/09/24 12/10/24
06:59 06:59 06:59
Intake Total 240 / 240
Balance 240 / 240
Review of Systems
-
History Source: Patient
Constitutional: Reports No Symptoms
EENT: Reports No Symptoms Reported
Respiratory: Reports No Symptoms
Cardiac: Reports No Symptoms
Abdomen/GI: Reports Diarrhea
Genitourinary: Reports No Symptoms
Musculoskeletal: Reports No Symptoms
Skin: Reports No Symptoms
Neuro: Reports No Symptoms
Physical Exam
-
General: Well Developed, Well Nourished, No Apparent Distress and Comfortable
HEENT: Normocephalic and Atraumatic
Respiratory: Clear to Auscultation
Cardiac: Regular Rhythm and Tachycardic
GI: Soft, Nontender and Nondistended
Musculoskeletal: No Clubbing, No Cyanosis and No Edema
Skin: Warm
Neuro: Awake, Alert, Oriented and AO x 3
[2024-12-09 08:25] LABS: % Basophils 0.1 % (0-2); % Immature Granulocytes 0.7 % (0-0.5); % Monocytes 11.3 % (1.7-9.3); % Neutrophils 78.9 % (42.2-75.2); Absolute Immature Granulocytes 0.1 10^3/uL (0-0.05); Absolute Lymphocytes 0.7 10^3/uL (1.2-3.4); Absolute Monocytes 0.9 10^3/uL (0.1-0.6); Absolute Neutrophils 6.1 10^3/uL (1.4-6.5); Hematocrit 40.8 % (39.0-52.0); Hemoglobin 14.8 g/dL (13.0-18.0); Mean Corp Hgb Conc. 36.3 g/dL (33.0-37.0); Mean Corpuscular Hgb 31.8 pg (27.0-31.0); Mean Corpuscular Volume 87.7 fL (80.0-94.0); Mean Platelet Volume 9.7 fL (7.4-10.4); Nucleated Red Blood Cells % 0 % (-); Platelet Count 181 10^3/uL (130-400); Red Blood Cell Count 4.65 10^6/uL (4.70-6.10); Red Cell Dist. Width 13.2 % (11.5-14.5); White Blood Cell Count 7.7 10^3/uL (4.8-10.8)
[2024-12-09] MEDS: ZOFRAN 4 MG IV ×3 (08:43→21:46)
[2024-12-09 09:07] LABS: ALT (SGPT) 35 U/L (0-50); AST (SGOT) 28 U/L (17-59); Albumin 3.9 g/dl (3.5-5.0); Alkaline Phosphatase 77 U/L (38-126); Blood Urea Nitrogen 23 mg/dl (9-20); Calcium 9.2 mg/dl (8.4-10.2); Carbon Dioxide 24 mmol/L (22-30); Chloride 107 mmol/L (98-107); Estimated Creatinine Clearance 57 ml/min; Glucose 117 mg/dl (70-99); Potassium 3.3 mmol/L (3.5-5.1); Sodium 144 mmol/L (135-145); Total Bilirubin 1.6 mg/dl (0.2-1.3); Total Protein 6.5 g/dl (6.3-8.2); eGFR 56.93
[2024-12-09 09:13] VITALS: BP 147/94
--- NOTE | 2024-12-09 10:14 | W.PN.UPDATE ---
Update Note
Progress Note Update
I saw and evaluated the patient. I reviewed the resident�s note and agree with findings and plan as documented in the resident�s note.
Pt reports abdominal discomfort and mild diarrhea.
Gen: NAD, AAOx2.
Eyes: EOMI, PERRLA, no scleral icterus.
Neck: supple.
CV: RRR, +S1/S2, no m/r/g.
Resp: CTAB, no rales, wheezes, or rhonchi.
Abd: +BS, soft, NT, ND
Skin: No rashes.
Neuro: CN 2-12 intact, non-focal.
Psych: Normal mood and affect.
CXR:
1. No radiographic evidence for pneumonia.
2. Mildly to moderately decreased bilateral lung volumes.
3. Moderate tortuosity of the thoracic aorta.
CT Brain:
1. No CT evidence for acute intracranial hemorrhage or transcortical infarct.
2. SEVERE WHITE MATTER LEUKOARAIOSIS in the frontal and parietal lobes.
3. 2.1 cm focal region of encephalomalacia in the inferior periventricular left frontal lobe which is likely secondary to a chronic infarct which appears unchanged.
4. Mild diffuse cerebral and cerebellar volume loss.
5. Severe intracranial calcific atherosclerotic disease.
Acute metabolic encephalopathy:
-Likely due to opioid withdrawal
-isolated fever noted (SIRS criteria met) but highly doubt this represents acute infection. No further fevers, no leukocytosis. U/A and CXR without evidence of infection. COVID/Flu NEG. Initially was given Vanco/Zosyn, no indication for further abx
that this moment.
-UDS POS for opiates (pt was on opioids until a few days [employer]) and marijuana
-suspected underlying cognitive decline due to vascular dementia
Chronic opioid use with dependence :
-for chronic LBP
-pt's opioids were discarded 12/05/24
-Belbuca and oxycodone resumed to prevent W/D
Elevated trop:
-appreciate cards
-likely nonischemic myocardial injury due to hypertensive emergency due to opioid withdrawal
Essential hypertension:
-with hypertensive emergency, now resolved
-cont Norvasc/terazosin/valsartan
-IV hydralazine PRN
Other problems:
Hypokalemia, replete
h/o B/L LOVE
h/o encephalomalacia due to old stroke at inferior periventricular left frontal lobe
h/o L breast cancer s/p mastectomy 2014
GERD/Adams's esophagus
BPH s/p TURP with residual urinary retention: Cont Terazosin
Obesity due to excess calories
Pt's updated at bedside.
FULL/Lovenox
Total time spent on today's encounter was 50 minutes which included time spent in counseling the patient/family regarding diagnosis and treatment plan as listed above, goals of care, and symptom management. Case was discussed with nursing staff,
specialists, and care coordinators/case management. All labs and imaging personally reviewed by me. Remainder the time spent in detailed review of previous records, lab data, imaging, and other medical provider documentation.
[2024-12-09] MEDS: BELBUCA 150 MCG BUCCAL ×2 (10:41→21:35)
[2024-12-09] MEDS: ROXICODONE 5 MG PO ×4 (11:30→21:34)
[2024-12-09] MEDS: KCL 40 MEQ PO (11:30)
[2024-12-09 11:31] VITALS: BP 156/89
[2024-12-09] MEDS: TYLENOL 650 MG PO (12:14)
--- NOTE | 2024-12-09 13:39 | CM ---
Patient seen at bedside in [facility]. Patient stated that he lives in a one story home with his . Patient PCP is Dr. Rubalcava and he uses the [facility] on [address] Patient seen at bedside complaining of stomach pain and patient was followed by
[facility] in the past. patient plan previously was to go home with no needs. CM will reach out to patient spouse to confirm plan. CM will continue to follow for discharge planning needs.
Plan; home with [facility] vs SNF; pending functional status
[2024-12-09 15:55] VITALS: BP 123/75
[2024-12-09 20:44] VITALS: BP 177/103
[2024-12-09] MEDS: HYTRIN 5 MG PO (21:34)
[2024-12-09] MEDS: NEURONTIN 600 MG PO (21:35)
[2024-12-09 23:42] VITALS: BP 184/98
[2024-12-10] MEDS: ROXICODONE 5 MG PO ×5 (00:47→17:31)
[2024-12-10 03:25] VITALS: BP 124/82
--- NOTE | 2024-12-10 06:50 | W.PN.HOSP.TC ---
Today's Communication/Plan
-
-Follow up CMP, LFTs, TB, DB
-Follow up vitals
-Diet advanced
Assessment / Plan
Assessment / Plan
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
with his mental status complicated with opioid withdrawal
Impression
-Acute mental status change
-Opioid withdrawal complicated with elevated BP and HR
-Abnormal EKG changes
-Elevated troponin levels
-Hypokalemia
-Hyperbilirubinemia
-History of hepatitis B
-History of alcohol use
-Chronic kidney disease
-Hx of left breast cancer status post left mastectomy 07/03/2015
-History of-hyperparathyroidism
-History of CVA
- History of chronic back pain with spinal stenosis
- History of BPH post status TURP
- History of Reynaud`s
- GERD
Plan
#Acute mental status change
-Resolved
-Head CT at admission: No CT evidence for acute intracranial hemorrhage or transcortical infarct/SEVERE WHITE MATTER LEUKOARAIOSIS in the frontal and parietal lobes./2.1 cm focal region of encephalomalacia in the inferior periventricular left
frontal lobe which is likely secondary to a chronic infarct which appears unchanged.
- Likely secondary to opioid abuse and withdrawal
# Opiate withdrawal
-Patient without any opiates since evening of 12/05/2024 3 days ago
-UDS 12/08/24:Oxycodone positive, THC positive
-Buprenorphine patch 15 mg was stopped on 12/05/2024 due to skin rashes changed to Belbuca 150 mcg sublingual tabs twice daily but not started yet before hospitalization
-Continue buccal 150 mcg buccal buprenorphine Q12H
-Patient on oxycodone 10 mg p.o. every 6 hours as needed as his home dose
-Continue oxycodone 5 mg every 6 hours scheduled then 5 mg every 6 as needed breakthrough pain
-Continue gabapentin 600 mg p.o. at bedtime and 300 mg twice daily as needed mild pain
#Hypertension
-Resolved
- Opioid withdrawal was accelerating
-Continue valsartan 160 mg p.o. daily, amlodipine 10 mg daily
- Lopressor 5 mg every 6 hours HR> 120 and/or SBP> 165
#Elevated troponin likely secondary to opioid withdrawal complicated with nonischemic myocardial injury
-Patient was seen by cardiology-echo ordered on 12/09-pending to be obtained
- Considered having likely nonischemic myocardial injury due to hypertension in the setting of opioid withdrawal
- Troponin levels downtrending. No chest pain. ECG sinus tach with no ischemia
- 2D echo 04/12/2024: EF 55 to 60%, no wall abnormalities, normal RVS RV SF, proximal ascending aorta 4 cm
# EKG changes
- No chest pain this a.m.
-Telemetry: Normal sinus rhythm with PACs and intermittent SVT. No atrial fibrillation
- Heart rates trending down comparing to admission
#Hypokalemia
- Potassium level was found 3.4 at admission and given KCl 40 mEq
-Resulted as 3.3 on 12/09/24 and ordered 40 mEq [facility]
- Follow-up BMP/replace potassium to keep >4
#Diarrhea
-Possibly secondary to opioid withdrawal
-Loperamide PRN ordered
# History of alcohol use disorder
-On MSAS protocol
-No symptoms of alcohol withdrawal so far
-Denies recent alcohol consuming
#Hx of Chronic back pain/spinal stenosis/neuropathy
-On opioids
#CKD 2/3A
-Cr 1.3 likely at baseline
-Follow up BMP
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
#Hypercalcemia
-Resolved-Calcium 9.6
-Hx of hyperparathyroidism
-Follw up ca level
-Continue Calcitrol 0.25 mcg p.o. MOWEFR
-PTH 138.6//TSH 0.40 -T4 ordered-pending
#Hyperbilirubinemia
-Hx hepatitis B in the 1970s from [facility]
-AST and ALT level in WNL
-T. bili 2.1 on 12/08 and trended down to 1.6 -DB 0.7
-Follow-up CMP and bilirubin levels
#Deficiency of Vit B12 and Vitamin D
-Follow up with PCP
#GERD/Adams's esophagus
-Continue omeprazole 20 mg daily patient takes as needed
#Hx CVA
CT head showing left frontal lobe chronic infarct with severe white matter leukoaraiosis in the frontal and parietal lobes
-Continue aspirin 81 mg daily, Crestor 10 mg daily
#BPH with nocturia
-Status post TURP 01/01/2020
-Continue terazosin 5 mg at bedtime
#Raynaud's
#Osteoarthritis
#left breast cancer status post left mastectomy 07/03/2015
DVT prophylaxis:SC heparin
Full code per Heather via phone
Anticipated Discharge: 24 - 48 hours
Subjective/Interval History
-
Date of Service: December 10, 2024
Patient reported having abdominal discomfort and having diarrhea. Reports had 1 episode of diarrhea since yesterday. Had a long conversation about how to use buccale buprenorphine and oxycodone together.
Objective Data
-
Labs:
Laboratory Results
12/10/24
06:00
WBC Pending
Hgb Pending
Hct Pending
Plt Count Pending
Sodium Pending
Potassium Pending
Chloride Pending
Carbon Dioxide Pending
BUN Pending
Creatinine Pending
Glucose Pending
Calcium Pending
Total Bilirubin Pending
AST Pending
ALT Pending
Alkaline Phosphatase Pending
Vital Signs:
Vital Signs
Temp Pulse Resp BP Pulse Ox
98.7 F 94 18 124/82 97
12/10/24 03:25 12/10/24 03:25 12/10/24 03:25 12/10/24 03:25 12/10/24 03:25
I&O
12/08/24 12/09/24 12/10/24
06:59 06:59 06:59
Intake Total 240 / 240 1800 / 1800
Output Total 350 / 350
Balance 240 / 240 1450 / 1450
Review of Systems
-
History Source: Patient
EENT: Reports No Symptoms Reported
Respiratory: Reports No Symptoms
Cardiac: Reports No Symptoms
Abdomen/GI: Reports Abdominal Pain and Diarrhea
Genitourinary: Reports No Symptoms
Musculoskeletal: Reports No Symptoms
Skin: Reports No Symptoms
Neuro: Reports No Symptoms
Physical Exam
-
General: Well Developed, Well Nourished and Conversant
HEENT: Normocephalic and Atraumatic
Respiratory: Clear to Auscultation
Cardiac: Regular Rhythm and S1/S2
GI: Soft, Nontender and Other (Increased bowel sounds)
Musculoskeletal: No Clubbing, No Cyanosis and No Edema
Skin: Warm and Dry
Neuro: Awake, Alert, Oriented and AO x 3
Psych: Calm
[2024-12-10 07:00] VITALS: BP 145/79
[2024-12-10] MEDS: HEPARIN 5000 UNITS SC ×2 (08:24→22:27)
[2024-12-10] MEDS: DIOVAN 160 MG PO (08:25)
[2024-12-10] MEDS: ZOFRAN 4 MG IV ×3 (08:25→22:46)
[2024-12-10] MEDS: ASPIR LOW (ENTERIC COATED) 81 MG PO (08:26)
[2024-12-10] MEDS: NORVASC 10 MG PO (08:26)
[2024-12-10] MEDS: CRESTOR 10 MG PO (08:26)
[2024-12-10 09:10] LABS: Hematocrit 43.9 % (39.0-52.0); Hemoglobin 16.2 g/dL (13.0-18.0); Mean Corp Hgb Conc. 36.9 g/dL (33.0-37.0); Mean Corpuscular Volume 86.8 fL (80.0-94.0); Red Blood Cell Count 5.06 10^6/uL (4.70-6.10); Red Cell Dist. Width 13.2 % (11.5-14.5); White Blood Cell Count 5.2 10^3/uL (4.8-10.8)
[2024-12-10 09:49] LABS: % Basophils 0.6 % (0-2); % Eosinophils 0.8 % (0-6); % Lymphocytes 15.5 % (20.5-51.1); % Monocytes 8.9 % (1.7-9.3); % Neutrophils 73.2 % (42.2-75.2); Absolute Immature Granulocytes 0.1 10^3/uL (0-0.05); Absolute Lymphocytes 0.8 10^3/uL (1.2-3.4); Absolute Monocytes 0.5 10^3/uL (0.1-0.6); Absolute Neutrophils 3.8 10^3/uL (1.4-6.5); Nucleated Red Blood Cells % 0 % (-)
[2024-12-10] MEDS: BELBUCA 150 MCG BUCCAL ×2 (09:54→22:26)
[2024-12-10] MEDS: IMODIUM 2 MG PO (09:54)
[2024-12-10 10:01] LABS: TSH Reflex To Free T4 0.02 uIU/ml (0.47-4.68)
[2024-12-10 10:35] LABS: ALT (SGPT) 38 U/L (0-50); AST (SGOT) 36 U/L (17-59); Albumin 4.4 g/dl (3.5-5.0); Alkaline Phosphatase 75 U/L (38-126); Blood Urea Nitrogen 23 mg/dl (9-20); Calcium 9.6 mg/dl (8.4-10.2); Carbon Dioxide 16 mmol/L (22-30); Chloride 113 mmol/L (98-107); Estimated Creatinine Clearance 57 ml/min; Glucose 100 mg/dl (70-99); Potassium 4.3 mmol/L (3.5-5.1); Sodium 145 mmol/L (135-145); Total Bilirubin 1.7 mg/dl (0.2-1.3); Total Protein 7.5 g/dl (6.3-8.2); eGFR 56.93
[2024-12-10 10:37] LABS: Direct Bilirubin 0.7 mg/dl (0.0-0.4)
--- NOTE | 2024-12-10 11:02 | W.PN.UPDATE ---
Update Note
Progress Note Update
I saw and evaluated the patient. I reviewed the resident�s note and agree with findings and plan as documented in the resident�s note.
Pt continues to report abdominal discomfort and mild diarrhea. c/o pain throughout his body.
Gen: NAD, awake and alert
Eyes: EOMI, PERRLA, no scleral icterus.
Neck: supple.
CV: Remains RRR, +S1/S2, no m/r/g.
Resp: Remains CTAB, no rales, wheezes, or rhonchi.
Abd: Remains +BS, soft, NT, ND
Skin: No rashes.
Neuro: CN 2-12 intact, non-focal.
Psych: Normal mood and affect.
CXR:
1. No radiographic evidence for pneumonia.
2. Mildly to moderately decreased bilateral lung volumes.
3. Moderate tortuosity of the thoracic aorta.
CT Brain:
1. No CT evidence for acute intracranial hemorrhage or transcortical infarct.
2. SEVERE WHITE MATTER LEUKOARAIOSIS in the frontal and parietal lobes.
3. 2.1 cm focal region of encephalomalacia in the inferior periventricular left frontal lobe which is likely secondary to a chronic infarct which appears unchanged.
4. Mild diffuse cerebral and cerebellar volume loss.
5. Severe intracranial calcific atherosclerotic disease.
Acute metabolic encephalopathy:
-Likely due to opioid withdrawal
-isolated fever noted (SIRS criteria met) but highly doubt this represents acute infection. No further fevers, no leukocytosis. U/A and CXR without evidence of infection. COVID/Flu NEG. Initially was given Vanco/Zosyn, no indication for further abx
that this moment.
-UDS POS for opiates (pt was on opioids until a few days [employer]) and marijuana
-suspected underlying cognitive decline due to vascular dementia
Chronic opioid use with dependence :
-for chronic LBP
-pt's opioids were discarded 12/05/24
-Belbuca and oxycodone resumed to prevent W/D
Elevated trop:
-appreciate cards
-likely nonischemic myocardial injury due to hypertensive emergency due to opioid withdrawal
Essential hypertension:
-with hypertensive emergency
-cont Norvasc/terazosin
-increase Valsartan to 320mg daily
-IV hydralazine PRN
Low TSH:
-fT4 pending
Acute metabolic acidosis:
-pt with AG. Part of the acidosis is likely anion gap acidosis due to diarrhea.
-check lactic acid
-start IVFs with HCO3-
Other problems:
Hypokalemia, resolved
h/o B/L LOVE
h/o encephalomalacia due to old stroke at inferior periventricular left frontal lobe
h/o L breast cancer s/p mastectomy 2014
GERD/Adams's esophagus
BPH s/p TURP with residual urinary retention: Cont Terazosin
Obesity due to excess calories
Pt's updated in person.
FULL/Lovenox
Total time spent on today's encounter was 51 minutes which included time spent in counseling the patient/family regarding diagnosis and treatment plan as listed above, goals of care, and symptom management. Case was discussed with nursing staff,
specialists, and care coordinators/case management. All labs and imaging personally reviewed by me. Remainder the time spent in detailed review of previous records, lab data, imaging, and other medical provider documentation.
[2024-12-10 11:10] LABS: Free T4 2.51 ng/dl (0.78-2.19)
[2024-12-10 11:48] VITALS: BP 150/81
[2024-12-10] MEDS: TAPAZOLE 5 MG PO (11:59)
--- NOTE | 2024-12-10 12:05 | CM ---
Chart reviewed and supervisor case loading met with patient and spouse and plan is for patient to return to home with spouse when stable, per patient his spouse works from home and will be with him at all times.
Plan; Home with spouse when stable.
[2024-12-10] MEDS: PROTONIX 40 MG PO (12:35)
[2024-12-10] MEDS: SODIUM BICARBONATE 1075 MEQ IV (12:36)
[2024-12-10 13:28] LABS: Lactic Acid 1.4 mmol/L (0.7-2.0)
[2024-12-10 15:00] VITALS: BP 145/83
[2024-12-10 19:58] VITALS: BP 126/95
[2024-12-10] MEDS: HYTRIN 5 MG PO (22:26)
[2024-12-10] MEDS: NEURONTIN 600 MG PO (22:26)
[2024-12-10 23:52] VITALS: BP 162/73
[2024-12-11] MEDS: ROXICODONE 5 MG PO ×4 (00:22→11:17)
[2024-12-11 04:02] VITALS: BP 154/87
[2024-12-11 07:00] VITALS: BP 136/77
--- NOTE | 2024-12-11 07:22 | W.PN.HOSP.TC ---
Today's Communication/Plan
-
-Follow anion gap
-Valsartan dose increased from 160 mg to 320 mg
-Follow hgb level
Assessment / Plan
Assessment / Plan
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
with his mental status complicated with opioid withdrawal.
Impression
-Acute mental status change
-Opioid withdrawal complicated with elevated BP and HR
-Abnormal EKG changes
-Elevated troponin levels
-Hypokalemia
-Hyperbilirubinemia
-History of hepatitis B
-History of alcohol use
-Chronic kidney disease
-Hx of left breast cancer status post left mastectomy 07/03/2015
-History of-hyperparathyroidism
-History of CVA
- History of chronic back pain with spinal stenosis
- History of BPH post status TURP
- History of Reynaud`s
- GERD
Plan
#Acute mental status change
-Resolved
-Head CT at admission: No CT evidence for acute intracranial hemorrhage or transcortical infarct/SEVERE WHITE MATTER LEUKOARAIOSIS in the frontal and parietal lobes./2.1 cm focal region of encephalomalacia in the inferior periventricular left
frontal lobe which is likely secondary to a chronic infarct which appears unchanged.
- Likely secondary to opioid use and withdrawal
# Opiate withdrawal
-Patient without any opiates since evening of 12/05/2024 for 3 days- until hospital admission
-UDS 12/08/24:Oxycodone positive, THC positive
-Buprenorphine patch 15 mg was stopped on 12/05/2024 due to skin rashes changed to Belbuca 150 mcg sublingual tabs twice daily but not started yet before hospitalization
-Continue buccal 150 mcg buccal buprenorphine D72C-Adofbra reports good compliant with
-Patient on oxycodone 10 mg p.o. every 6 hours as needed as his home dose
-Continue oxycodone 5 mg every 6 hours scheduled then 5 mg every 6 as needed breakthrough pain
-Continue gabapentin 600 mg p.o. at bedtime and 300 mg twice daily as needed mild pain
#Hypertension
-Opioid withdrawal was accelerating
-Valsartan dose increased from 160 to 320 mg daily
-Continue amlodipine 10 mg daily
- Lopressor 5 mg every 6 hours HR> 120 and/or SBP> 165
#Hyperthyroidism
-TSH 0.02--FT4 2.51
-Started on methimazole 5 mg on 12/10
-Outpatient endocrinology follow up
#Hypercalcemia
-Resolved-Calcium 9.6
-Hx of hyperparathyroidism
-Follw up ca level
-Continue Calcitrol 0.25 mcg p.o. MOWEFR
-PTH 138.6
#Hypokalemia
- Potassium level was found 3.4 at admission and given KCl 40 mEq
-Resulted as 3.3 on 12/09/24 and ordered 40 mEq KCI
- Follow-up BMP/replace potassium to keep >4
#Anion gap metabolic acidosis
-Resolved
-Given Sodium bicarbonate on 12/10
-Follow anion gap:16 on 12/10 and anion gap: 9 on 12/11
#Diarrhea
-Improving
-Possibly secondary to opioid withdrawal
-Loperamide PRN ordered
#Elevated troponin likely secondary to opioid withdrawal complicated with nonischemic myocardial injury
-Patient was seen by cardiology-echo ordered on 12/09-pending to be obtained
- Considered having likely nonischemic myocardial injury due to hypertension in the setting of opioid withdrawal
- Troponin levels downtrending. No chest pain. ECG sinus tach with no ischemia
- 2D echo 04/12/2024: EF 55 to 60%, no wall abnormalities, normal RVS RV SF, proximal ascending aorta 4 cm
# EKG changes
- No chest pain
- Heart rates trending down comparing to admission
# History of alcohol use disorder
-On MSAS protocol
-No symptoms of alcohol withdrawal so far
-Denies recent alcohol consuming
#Hx of Chronic back pain/spinal stenosis/neuropathy
-On opioids
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
-Cr 1.3 likely at baseline
-Follow up BMP
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
#Hyperbilirubinemia
-Hx hepatitis B in the 1970s from [facility]
-AST and ALT level in WNL
-T. bili 2.1 on 12/08 and trended down to 1.5 -DB 0.7
-Follow-up CMP and bilirubin levels
#Deficiency of Vit B12 and Vitamin D
-Follow up with PCP
#GERD/Adams's esophagus
-Continue omeprazole 20 mg daily patient takes as needed
#Hx CVA
CT head showing left frontal lobe chronic infarct with severe white matter leukoaraiosis in the frontal and parietal lobes
-Continue aspirin 81 mg daily, Crestor 10 mg daily
#BPH with nocturia
-Status post TURP 01/01/2020
-Continue terazosin 5 mg at bedtime
#Raynaud's
#Osteoarthritis
#left breast cancer status post left mastectomy 07/03/2015
DVT prophylaxis:SC heparin
Full code per Heather via phone
Anticipated Discharge: 24 - 48 hours
Subjective/Interval History
-
Date of Service: December 11, 2024
The patient reported improvement with his abdominal discomfort and reports loperamide was helpful. He complained about generalized muscle aches.
Objective Data
-
Labs:
Laboratory Results
12/11/24
06:00
WBC Pending
Hgb Pending
Hct Pending
Plt Count Pending
Sodium Pending
Potassium Pending
Chloride Pending
Carbon Dioxide Pending
BUN Pending
Creatinine Pending
Glucose Pending
Calcium Pending
Total Bilirubin Pending
AST Pending
ALT Pending
Alkaline Phosphatase Pending
Vital Signs:
Vital Signs
Temp Pulse Resp BP Pulse Ox
98.9 F 73 18 154/87 98
12/11/24 04:02 12/11/24 04:02 12/11/24 04:02 12/11/24 04:02 12/11/24 04:02
I&O
12/10/24 12/11/24 12/12/24
06:59 06:59 06:59
Intake Total 1800 / 1800 1440 / 1440 1480 / 1480
Output Total 350 / 350 300 / 300
Balance 1450 / 1450 1140 / 1140 1480 / 1480
Review of Systems
-
History Source: Patient
EENT: Reports No Symptoms Reported
Respiratory: Reports No Symptoms
Cardiac: Reports No Symptoms
Abdomen/GI: Reports Diarrhea
Genitourinary: Reports No Symptoms
Musculoskeletal: Reports Myalgias
Skin: Reports No Symptoms
Neuro: Reports No Symptoms
Physical Exam
-
General: Well Developed and Well Nourished
HEENT: Normocephalic and Atraumatic
Respiratory: Clear to Auscultation
Cardiac: Regular Rhythm and S1/S2
GI: Soft, Nontender, Nondistended and Normal Bowel Sounds
Musculoskeletal: No Clubbing, No Cyanosis and No Edema
Skin: Warm
Neuro: Awake, Alert, Oriented and AO x 3
[2024-12-11 08:51] LABS: ALT (SGPT) 32 U/L (0-50); AST (SGOT) 30 U/L (17-59); Albumin 3.5 g/dl (3.5-5.0); Alkaline Phosphatase 69 U/L (38-126); Blood Urea Nitrogen 17 mg/dl (9-20); Calcium 8.2 mg/dl (8.4-10.2); Carbon Dioxide 25 mmol/L (22-30); Chloride 105 mmol/L (98-107); Estimated Creatinine Clearance 57 ml/min; Glucose 101 mg/dl (70-99); Potassium 3.3 mmol/L (3.5-5.1); Sodium 139 mmol/L (135-145); Total Bilirubin 1.5 mg/dl (0.2-1.3); Total Protein 5.9 g/dl (6.3-8.2); eGFR 56.93
[2024-12-11] MEDS: DIOVAN 160 MG PO (08:53)
[2024-12-11] MEDS: TAPAZOLE 5 MG PO (08:53)
[2024-12-11] MEDS: CRESTOR 10 MG PO (08:53)
[2024-12-11] MEDS: NORVASC 10 MG PO (08:54)
[2024-12-11] MEDS: HEPARIN 5000 UNITS SC (08:54)
[2024-12-11] MEDS: ASPIR LOW (ENTERIC COATED) 81 MG PO (08:54)
[2024-12-11] MEDS: ROCALTROL 0.25 MCG PO (09:02)
[2024-12-11 09:33] LABS: Hematocrit 35.7 % (39.0-52.0); Hemoglobin 12.9 g/dL (13.0-18.0); Mean Corp Hgb Conc. 36.1 g/dL (33.0-37.0); Mean Corpuscular Hgb 31.2 pg (27.0-31.0); Mean Corpuscular Volume 86.4 fL (80.0-94.0); Red Blood Cell Count 4.13 10^6/uL (4.70-6.10); Red Cell Dist. Width 12.9 % (11.5-14.5); White Blood Cell Count 5.3 10^3/uL (4.8-10.8)
[2024-12-11] MEDS: ZANAFLEX 2 MG PO (10:31)
[2024-12-11] MEDS: BELBUCA 150 MCG BUCCAL (10:31)
--- NOTE | 2024-12-11 10:32 | W.PN.UPDATE ---
Update Note
Progress Note Update
I saw and evaluated the patient. I reviewed the resident�s note and agree with findings and plan as documented in the resident�s note.
No new complaints today.
Gen: NAD, awake and alert
Eyes: EOMI, PERRLA, no scleral icterus.
Neck: supple.
CV: continues to remain RRR, +S1/S2, no m/r/g.
Resp: continues to remain CTAB, no rales, wheezes, or rhonchi.
Abd: continues to remain +BS, soft, NT, ND
Skin: No rashes.
Neuro: CN 2-12 intact, non-focal.
Psych: Normal mood and affect.
CXR:
1. No radiographic evidence for pneumonia.
2. Mildly to moderately decreased bilateral lung volumes.
3. Moderate tortuosity of the thoracic aorta.
CT Brain:
1. No CT evidence for acute intracranial hemorrhage or transcortical infarct.
2. SEVERE WHITE MATTER LEUKOARAIOSIS in the frontal and parietal lobes.
3. 2.1 cm focal region of encephalomalacia in the inferior periventricular left frontal lobe which is likely secondary to a chronic infarct which appears unchanged.
4. Mild diffuse cerebral and cerebellar volume loss.
5. Severe intracranial calcific atherosclerotic disease.
Acute metabolic encephalopathy:
-Likely due to opioid withdrawal
-isolated fever noted (SIRS criteria met) but highly doubt this represents acute infection. No further fevers, no leukocytosis. U/A and CXR without evidence of infection. COVID/Flu NEG. Initially was given Vanco/Zosyn, no indication for further abx
that this moment.
-UDS POS for opiates (pt was on opioids until a few days [employer]) and marijuana
-suspected underlying cognitive decline due to vascular dementia
Chronic opioid use with dependence :
-for chronic LBP
-pt's opioids were discarded 12/05/24
-Belbuca and oxycodone resumed to prevent W/D
Elevated trop:
-appreciate cards
-likely nonischemic myocardial injury due to hypertensive emergency due to opioid withdrawal
Essential hypertension:
-with hypertensive emergency
-cont Norvasc/terazosin
-increase Valsartan to 320mg daily
-IV hydralazine PRN
Acute hyperthyroidism:
-Methimazole started
-TFTs in 2-4 weeks
-outpt f/u with endocrine
Acute metabolic acidosis:
-pt had AG. Part of the acidosis was likely anion gap acidosis due to diarrhea.
-resolved with IVFs with HCO3-
Other problems:
Hypokalemia, resolved
h/o B/L LOVE
h/o encephalomalacia due to old stroke at inferior periventricular left frontal lobe
h/o L breast cancer s/p mastectomy 2014
GERD/Adams's esophagus
BPH s/p TURP with residual urinary retention: Cont Terazosin
Obesity due to excess calories
Pt's updated in person.
FULL/Lovenox
Medically cleared for d/c. Case management aware.
Total time spent on d/c = 34 min. This included today's physical exam, progress note, review of laboratory and diagnostic data, preparation of discharge documents and prescriptions, and discussions about the pt's hospital course and discharge plan
with the patient and other medical technologist chemistry involved in the patient's care.
[2024-12-11 11:00] VITALS: BP 115/62
[2024-12-11 11:02] LABS: % Basophils 0.4 % (0-2); % Eosinophils 2.4 % (0-6); % Immature Granulocytes 0.8 % (0-0.5); % Lymphocytes 20.7 % (20.5-51.1); % Monocytes 11.8 % (1.7-9.3); % Neutrophils 63.9 % (42.2-75.2); Absolute Eosinophils 0.1 10^3/uL (0-0.7); Absolute Lymphocytes 1.1 10^3/uL (1.2-3.4); Absolute Monocytes 0.6 10^3/uL (0.1-0.6); Absolute Neutrophils 3.4 10^3/uL (1.4-6.5); Mean Platelet Volume 9.9 fL (7.4-10.4); Nucleated Red Blood Cells % 0 % (-); Platelet Count 151 10^3/uL (130-400)
--- NOTE | 2024-12-11 11:54 | W.DCSUMMARY ---
Discharge Summary
Discharge Data
Date of Admission: 12/08/24
Date of Discharge: 12/11/24
-
Pending Results: No
Hospital Course
Disposition :� Home
Primary care physician :Peter Carr CRNP
Principal Discharge diagnosis :� Acute metabolic encephalopathy, Essential hypertension,Elevated troponin, Hypokalemia, Hyperthyroidism,Anion gap metabolic acidosis, Hyperbilirubinemia,
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
cancer status post left mastectomy 07/03/2015
Hospital Course :�
#Acute metabolic encephalopathy:� The patient presented to ER with confusion with a suspicion of opioid withdrawal and also a possibility of opioid overdose. The patient has history of opioid dependency due his chronic pain and started to take more
opioids recently�by his report. After an argument with his he threw out his oxycodone medications on .� At ER, due his altered mental status he was obtained a head CT which was not significant for an acute event. His Chest X ray
was not remarkable. His ECG showed abnormal changes with sinus� tachycardia and his troponin level was found elevated.� His lab results was significant for low K level to 3.4, elevated TB 2.1, elevated DB to 0.7�� His blood pressure was found
elevated to 172/89 and fever to 100.8. The patient was started on opioids and he was placed on MSAS protocol given his alcohol use disorder. He was continued his home blood pressure medication and was given metoprolol to manage his BP and sinus
tachycardia. His BP and HR returned to normal. Mental status of the patient gradually improved.
#Elevated troponin:�The patient was seen by cardiology and considered having non-ischemic cardiac injury likely secondary to opioid withdrawal. Troponin levels trended down.
#Hypokalemia:Replaced and levels came back to normal.
# Hyperthyroidism: The patient TSH level was found low with an increased level of T4. He was started on methimazole and recommended to see his PCP and an management services technician after his discharge.
#Anion gap metabolic acidosis:It was resolved following given sodium-bicarbonate.
#Hyperbilirubinemia: The patient has a past medical history of Hepatitis B and her bilirubin levels trended some down during hospitalization.The patient did not have any pain on RUQ area. His LFT `s was found in normal ranges. Recommended to have a
follow up with his PCP.
#Other chronic diseases were treated as able to which are including Chronic back pain/spinal stenosis/neuropathy, CKD 2/3A,Chronic opioid use with dependence, Hyperparathyroidism with� Hypercalcemia, GERD/Adams's esophagus,Hx CVA,BPH with
nocturia,Raynaud's,Osteoarthritis,left breast cancer status post left mastectomy.
Important imaging findings :�
12/08/24 Chest X ray
FINDINGS:
The cardiac silhouette is mildly enlarged. There is moderate tortuosity of the thoracic aorta which contains a moderate amount of calcific atherosclerotic plaque. There is mild central distention of the pulmonary vasculature in both lungs. There is
no evidence for acute pulmonary edema.
The trachea is midline. The lung volumes are mildly to moderately decreased bilaterally. There is no radiographic evidence for focal airspace opacity suspicious for pneumonia. There is no radiographic evidence for pleural effusion or pneumothorax.
There is mild multilevel discogenic degenerative disease throughout the thoracic spine. There is severe multilevel lower cervical discogenic degenerative disease. There is mild bilateral osteoarthritis of the glenohumeral and acromioclavicular
joints. The bones appear diffusely demineralized.
There is no radiographic evidence for pneumoperitoneum or abnormal bowel dilatation in the upper abdomen.
IMPRESSION:
1. No radiographic evidence for pneumonia.
2. Mildly to moderately decreased bilateral lung volumes.
3. Moderate tortuosity of the thoracic aorta.
12/08/[address]
FINDINGS:
There is no CT evidence for acute intracranial hemorrhage or extra-axial collection. The ventricles are midline without evidence for hydrocephalus. There is no midline shift. The right cerebellar tonsil extends 1.0 cm inferiorly into the foramen
magnum which appears chronic and unchanged. There is mild diffuse cerebral and cerebellar volume loss.
There is no CT evidence for acute transcortical infarct. There is a 2.1 x 1.6 x 1.5 cm focal region of encephalomalacia in the inferior periventricular left frontal lobe which appears be secondary to a chronic infarct. There is extensive low
attenuation throughout the white matter of both frontal and parietal lobes consistent with severe white matter leukoaraiosis. There is severe calcific atherosclerotic plaque in the intracranial internal carotid and vertebral arteries. The right
intracranial vertebral arteries very tortuous crossing midline and causing moderate ventral compression on the medulla which is unchanged.
The imaged paranasal sinuses and mastoid air cells are clear. There is no CT evidence for acute calvarial fracture or acute scalp soft tissue hematoma.
There is severe discogenic degenerative disease at C3/C4 and C4/C5.
IMPRESSION:
1. No CT evidence for acute intracranial hemorrhage or transcortical infarct.
2. SEVERE WHITE MATTER LEUKOARAIOSIS in the frontal and parietal lobes.
3. 2.1 cm focal region of encephalomalacia in the inferior periventricular left frontal lobe which is likely secondary to a chronic infarct which appears unchanged.
4. Mild diffuse cerebral and cerebellar volume loss.
5. Severe intracranial calcific atherosclerotic disease.
Electronically signed by Jose Rodriguez MD, 12/08/2024 1:22 PM
Discharge Plan
-
Patient Disposition: Home (Routine Discharge)
Discharge Diagnosis/Procedures: Acute metabolic encephalopathy
Essential hypertension
Elevated troponin
Hypokalemia
Hyperbilirubinemia
Hyperthyroidism
Condition: Good
Diet: Low Cholesterol
Activity: As tolerated
Driving Restrictions: As prior to admission
Specialty Instructions: Weigh Daily- Call MD for wt gain/loss 3 lbs overnight/5 lbs in 1 week
Activity Restrictions/Additional Instructions:
You need thyroid function test in 2 to 4 weeks, prescription from PCP
Referrals:
Peter Carr CRNP [Non-Admitting Privileges] - in less than 1 week (Please check CBC(with diff), CMP, TSH, T4)
Desi Hylton MD [Consulting Staff] - in less than 1 week (Please have follow up for your newly diagnosed hyperthyroidism )
UNKNOWN - PT DOES,NOT KNOW [Family Provider] -
Prescriptions:
New
loperamide 2 mg capsule
2 mg PO Q6HPRN PRN (Reason: diarrhea) 10 Days Qty: 40 0RF
methimazole 5 mg Tablet
5 mg PO DAILY 30 Days Qty: 30 0RF
Continued
terazosin 5 mg capsule
5 mg PO HS
gabapentin 300 MG capsule
600 mg PO HS
aspirin 81 mg Tablet,Delayed Release (Dr/Ec)
81 mg PO DAILY Qty: 30 0RF
amlodipine 10 MG tablet
10 mg PO DAILY Qty: 1 0RF
gabapentin 300 mg Capsule
300 mg PO BIDPRN PRN (Reason: mild pain)
calcitriol 0.25 mcg Capsule
0.25 mcg PO MOWEFR
valsartan 160 mg Tablet
160 mg PO DAILY
rosuvastatin [Crestor] 10 mg Tablet
10 mg PO DAILY
omeprazole 20 mg Tablet,Delayed Release (Dr/Ec)
20 mg PO DAILYPRN PRN (Reason: gerd)
oxycodone 10 mg Tablet
10 mg PO Q6HPRN PRN (Reason: severe pain)
buprenorphine HCl [Belbuca] 150 mcg Film
150 mcg BUCCAL Q12H
Rx Instructions:
got rx on 12/05 did not take yet
Discontinued
buprenorphine
15 mg transdermal DIRECTED
Rx Instructions:
Patient will take once a week but has been having allergic skin reactions was converted to sublingual on 424
Discharge Orders:
Discharge Patient (As Directed); Ordered 12/11/24
Ordered By: Loc Saucedo
Discharge Date and Time
Print Language: MALTESE
--- NOTE | 2024-12-11 12:14 | CM ---
Chart reviewed and plan is to home with spouse, no needs.
Plan; Home with spouse no needs.
== END 2024-12-11 13:59 | disposition home or self-care (01) | DRG 896 ==
LOC: 4 WEST ACU 15:43
PROVIDERS: Clinical Nurse Specialist Family Health; Student in an Organized Health Care Education/Training Program; ADMITTING PHYSICIAN Internal Medicine; ATTENDING PHYSICIAN Internal Medicine; CONSULT PHYSICIAN Internal Medicine Cardiovascular Disease; EMERGENCY PHYSICIAN Emergency Medicine
DX: F11.23 Opioid dependence with withdrawal (principal); G93.41 Metabolic encephalopathy; E87.20 Acidosis, unspecified; I16.1 Hypertensive emergency; R65.10 Systemic inflammatory response syndrome (SIRS) of non-infectious origin without acute organ dysfunction; I12.9 Hypertensive chronic kidney disease with stage 1 through stage 4 chronic kidney disease, or unspecified chronic kidney disease; N18.31 Chronic kidney disease, stage 3a; E87.6 Hypokalemia; E05.90 Thyrotoxicosis, unspecified without thyrotoxic crisis or storm; K76.0 Fatty (change of) liver, not elsewhere classified; M48.00 Spinal stenosis, site unspecified; G62.9 Polyneuropathy, unspecified; E83.52 Hypercalcemia; K21.9 Gastro-esophageal reflux disease without esophagitis; K22.70 Barrett's esophagus without dysplasia; Z86.73 Personal history of transient ischemic attack (TIA), and cerebral infarction without residual deficits; N40.1 Benign prostatic hyperplasia with lower urinary tract symptoms; I73.00 Raynaud's syndrome without gangrene; M19.011 Primary osteoarthritis, right shoulder; M19.012 Primary osteoarthritis, left shoulder; Z85.3 Personal history of malignant neoplasm of breast; Z90.12 Acquired absence of left breast and nipple; G89.29 Other chronic pain; M51.360 Other intervertebral disc degeneration, lumbar region with discogenic back pain only; F10.21 Alcohol dependence, in remission; Z87.891 Personal history of nicotine dependence; Z88.5 Allergy status to narcotic agent; Z79.82 Long term (current) use of aspirin; E66.09 Other obesity due to excess calories; Z68.30 Body mass index [BMI] 30.0-30.9, adult; Z11.52 Encounter for screening for COVID-19; G93.89 Other specified disorders of brain; Z82.49 Family history of ischemic heart disease and other diseases of the circulatory system; Z90.79 Acquired absence of other genital organ(s)
CPT/HCPCS: 70450; 71046; 80053; 80143; 80306; 80307; 81003; 81015; 82248; 83605; 83735; 84100; 84439; 84443; 84484; 85025; 87040; 87502; 87811; 93005; 96374; 97161; 99291; J7030

== ENCOUNTER 2024-12-16 10:02 | Emergency (ER) | payer OTHER, SELFPAY ==
[2024-12-16 11:06] LABS: % Basophils 0.5 % (0-2); % Immature Granulocytes 0.5 % (0-0.5); % Lymphocytes 14.5 % (20.5-51.1); % Monocytes 19.1 % (1.7-9.3); % Neutrophils 63.4 % (42.2-75.2); Absolute Eosinophils 0.1 10^3/uL (0-0.7); Absolute Lymphocytes 0.9 10^3/uL (1.2-3.4); Absolute Monocytes 1.2 10^3/uL (0.1-0.6); Absolute Neutrophils 3.9 10^3/uL (1.4-6.5); Hematocrit 38.6 % (39.0-52.0); Hemoglobin 13.8 g/dL (13.0-18.0); Mean Corp Hgb Conc. 35.8 g/dL (33.0-37.0); Mean Corpuscular Hgb 31.6 pg (27.0-31.0); Mean Corpuscular Volume 88.3 fL (80.0-94.0); Mean Platelet Volume 10.1 fL (7.4-10.4); Nucleated Red Blood Cells % 0 % (-); Platelet Count 205 10^3/uL (130-400); Red Blood Cell Count 4.37 10^6/uL (4.70-6.10); White Blood Cell Count 6.1 10^3/uL (4.8-10.8)
[2024-12-16 11:21] LABS: ALT (SGPT) 32 U/L (0-50); AST (SGOT) 36 U/L (17-59); Alkaline Phosphatase 76 U/L (38-126); Blood Urea Nitrogen 13 mg/dl (9-20); Calcium 9.1 mg/dl (8.4-10.2); Carbon Dioxide 25 mmol/L (22-30); Chloride 102 mmol/L (98-107); Glucose 101 mg/dl (70-99); Potassium 3.7 mmol/L (3.5-5.1); Sodium 138 mmol/L (135-145); Total Bilirubin 1.7 mg/dl (0.2-1.3); Total Protein 6.7 g/dl (6.3-8.2); eGFR 47.95
[2024-12-16 11:53] LABS: TSH 0.09 uIU/ml (0.47-4.68)
[2024-12-16 11:54] VITALS: BP 113/102
[2024-12-16 11:56] VITALS: BP 115/73
[2024-12-16 11:57] VITALS: BMI 30.4
[2024-12-16 12:00] VITALS: BP 111/67
--- NOTE | 2024-12-16 12:28 | ED.GENMED ---
History of Present Illness
General
Chief Complaint: Blood Pressure Problem
Time Seen by Provider: 12/16/24 12:05
History of Present Illness
History of Present Illness:
Patient is a 74-year-old male with history of hypertension presenting to the emergency department with concerns for low blood pressure. Patient states that he woke up in his usual state of health. He normally takes his medications at 6 in the
morning. He felt slightly off so he checked his blood pressure in the morning she usually does. Initially they were receiving error on the blood pressure machine. He then had a blood pressure that read as --/--. he then checked his blood pressure
again and his blood pressure was 70/50. He was asymptomatic but called his primary care doctor who advised them to come to the emergency department. Patient denies any fevers chills. No lightheadedness dizziness. Normal p.o. No nausea vomiting
or diarrhea. No chest pain. He denies any complaints at this time.
Past History
Past History
ED Past Medical History: Cancer (Left breast cancer), GERD, HTN, Other (Sigmoid diverticulitis March 2022; chronic low back pain/lumbar DDD, narcotic dependent) and Other (BPH; prior history of pain med addiction)
ED Past Surgical History: Cholecystectomy, Orthopedic, Urological (TURP December 2019) and Other (Mastectomy-left)
Social History
Tobacco: Former smoker
Alcohol: None
Drug: Former user (Former IV drug abuser)
Personal:
Living: with family
Employment: Retired
Family History
Family History: Other (Noncontributory)
Phy Exam
Physical Exam
Physical Exam:
GENERAL: in no acute distress
HEENT: normocephalic, extraocular movements intact, moist oral mucosa
NECK: normal inspection
RESPIRATORY: no respiratory distress, clear to auscultation bilaterally
CARDIOVASCULAR: regular rate and rhythm
ABDOMEN/: soft, non-distended, non-tender to palpation, no rebound or guarding
EXTREMITIES: non-tender, no edema/swelling
NEUROLOGIC: awake and alert, moves all extremities
SKIN: warm
Course
Orders/Labs/Results
Orders:
Orders
12/16/24 10:17
Electrocardiogram (*1) Urgent
Reason for Study: Chest Pain
EKG- Treatment ONCE
12/16/24 10:34
Complete Blood Count/With Diff Urgent
Comprehensive Metabolic Panel Urgent
Free T4 Urgent
Comment: FREE T4 ADDED ON BY FLOOR NOON 12-16-24
TSH Urgent
12/16/24 12:04
Add On- LAB Urgent
Tests Added?: free t4
Abnormal Lab Results
12/16/24
10:34
RBC 4.37 L 10^6/uL
(4.70-6.10)
Hct 38.6 L %
(39.0-52.0)
MCH 31.6 H pg
(27.0-31.0)
Absolute Lymphs (auto) 0.9 L 10^3/uL
(1.2-3.4)
Absolute Monos (auto) 1.2 H 10^3/uL
(0.1-0.6)
Lymphocytes % 14.5 L %
(20.5-51.1)
Monocytes % 19.1 H %
(1.7-9.3)
Creatinine 1.5 H mg/dL
(0.7-1.3)
Glucose 101 H mg/dl
(70-99)
Total Bilirubin 1.7 H mg/dl
(0.2-1.3)
TSH 0.09 L uIU/ml
(0.47-4.68)
Free T4 2.48 H ng/dl
(0.78-2.19)
12/16/24 10:34
12/16/24 10:34
Vital Signs
Initial and Last Documented VS:
Initial Vital Signs
Temp Pulse Resp Pulse Ox
98.7 F 98 16 98
12/16/24 10:14 12/16/24 10:14 12/16/24 10:14 12/16/24 10:14
Last Documented Vital Signs
Temp Pulse Resp BP Pulse Ox
98.7 F 58 12 111/67 96
12/16/24 10:14 12/16/24 12:45 12/16/24 12:45 12/16/24 12:00 12/16/24 12:45
MDM/Problems Addressed
Differential Diagnosis Includes:
Patient is a 74-year-old male with history of hypertension presenting to the emergency department with concerns for low blood pressure. On arrival patient blood pressure was normal and exam was reassuring. During my evaluation I did repeat
patient's blood pressure which remained normal. Patient is asymptomatic at this time. Likely faulty blood pressure machine as all repeat blood pressure measurements have been normal. He did not have increased fluid or a meal in between to cause a
significant change. He denies any complaints this time. Blood work was obtained prior to my evaluation which is similar to prior. He does have a low TSH. Will add on free T4.
Free T4 is elevated though similar to prior. He is asymptomatic. I did discuss with on-call endocrinology who recommended leaving his medications as is. Recommended repeat follow-up in 4 weeks and to ensure that he has a follow-up visit. Their
office will call him to schedule an appointment. Strict return precautions given. His blood pressure remained normal while he was here. Will discharge at this time.
*Critical Care Note
Total Time (30-74mins, 75-104mins- exclusive of procedures): Not Applicable
ED Attending Note
-
Portions of this chart may have been created with voice recognition software.� Occasional wrong word or��sound alike� substitutions may have occurred due to the inherent limitations of voice recognition software.
Discharge Plan
Departure
Patient Disposition: Home (Routine Discharge)
Date of Disposition: 12/16/24
Time of Disposition: 13:01
Patient with high blood pressure during this ER visit?: No
Discharge Problem:
Blood pressure check, Hyperthyroidism
Instructions: BLOOD PRESSURE
Prescriptions:
No Action
terazosin 5 mg capsule
5 mg PO HS
gabapentin 300 MG capsule
600 mg PO HS
aspirin 81 mg Tablet,Delayed Release (Dr/Ec)
81 mg PO DAILY Qty: 30 0RF
amlodipine 10 MG tablet
10 mg PO DAILY Qty: 1 0RF
gabapentin 300 mg Capsule
300 mg PO BIDPRN PRN (Reason: mild pain)
calcitriol 0.25 mcg Capsule
0.25 mcg PO MOWEFR
valsartan 160 mg Tablet
160 mg PO DAILY
rosuvastatin [Crestor] 10 mg Tablet
10 mg PO DAILY
omeprazole 20 mg Tablet,Delayed Release (Dr/Ec)
20 mg PO DAILYPRN PRN (Reason: gerd)
oxycodone 10 mg Tablet
10 mg PO Q6HPRN PRN (Reason: severe pain)
buprenorphine HCl [Belbuca] 150 mcg Film
150 mcg BUCCAL Q12H
Rx Instructions:
got rx on 12/05 did not take yet
loperamide 2 mg capsule
2 mg PO Q6HPRN PRN (Reason: diarrhea) 10 Days Qty: 40 0RF
methimazole 5 mg Tablet
5 mg PO DAILY 30 Days Qty: 30 0RF
Referrals:
Peter Carr CRNP [Family Provider] -
Renaldo Lerma MD [Consulting Staff] -
Activity Restrictions/Additional Instructions:
Please make sure you continue to take your methimazole and follow up with endocrinology as you will need repeat blood work in 4 weeks.
Interventions
Interventions:
*Risk Screen - Suicide Last Done: 12/16/24 10:15
*General Assessment Last Done: 12/16/24 12:01
*Neglect/Abuse Screening Last Done: 12/16/24 10:15
*ED- Fall Risk Assessment Last Done: 12/16/24 12:01
*ED COVID-19 Vaccine History Last Done: 12/16/24 12:01
ED- Cardiac Assessment Last Done: 12/16/24 12:01
ED- Neurological Assessment Last Done: 12/16/24 12:01
ED- Pulmonary Assessment Last Done: 12/16/24 12:01
Discharge Date and Time
Print Language: [id number]
[2024-12-16 12:35] LABS: Free T4 2.48 ng/dl (0.78-2.19)
[2024-12-16 13:01] VITALS: BP 117/70
== END 2024-12-16 14:04 | disposition home or self-care (01) ==
LOC: EMR 10:02
PROVIDERS: Student in an Organized Health Care Education/Training Program; EMERGENCY PHYSICIAN Student in an Organized Health Care Education/Training Program; FAMILY PHYSICIAN Nurse Practitioner Family
DX: Z01.30 Encounter for examination of blood pressure without abnormal findings (principal); E05.90 Thyrotoxicosis, unspecified without thyrotoxic crisis or storm; I10 Essential (primary) hypertension; Z87.891 Personal history of nicotine dependence
CPT/HCPCS: 99284; 80053; 84439; 84443; 85025; 93005

== ENCOUNTER → 2024-12-23 07:12 | Outpatient (REF) | payer OTHER, SELFPAY ==
[2024-12-23 08:33] LABS: % Basophils 0.2 % (0-2); % Eosinophils 2.9 % (0-6); % Immature Granulocytes 0.4 % (0-0.5); % Lymphocytes 20.8 % (20.5-51.1); % Monocytes 7.5 % (1.7-9.3); % Neutrophils 68.2 % (42.2-75.2); Absolute Eosinophils 0.2 10^3/uL (0-0.7); Absolute Lymphocytes 1.2 10^3/uL (1.2-3.4); Absolute Monocytes 0.4 10^3/uL (0.1-0.6); Absolute Neutrophils 3.8 10^3/uL (1.4-6.5); Hematocrit 36.7 % (39.0-52.0); Hemoglobin 12.9 g/dL (13.0-18.0); Mean Corp Hgb Conc. 35.1 g/dL (33.0-37.0); Mean Corpuscular Hgb 31.8 pg (27.0-31.0); Mean Corpuscular Volume 90.4 fL (80.0-94.0); Mean Platelet Volume 9.9 fL (7.4-10.4); Nucleated Red Blood Cells % 0 % (-); Platelet Count 249 10^3/uL (130-400); Red Blood Cell Count 4.06 10^6/uL (4.70-6.10); Red Cell Dist. Width 12.8 % (11.5-14.5); White Blood Cell Count 5.6 10^3/uL (4.8-10.8)
[2024-12-23 09:08] LABS: ALT (SGPT) 17 U/L (0-50); AST (SGOT) 21 U/L (17-59); Albumin 4.2 g/dl (3.5-5.0); Alkaline Phosphatase 82 U/L (38-126); Blood Urea Nitrogen 17 mg/dl (9-20); Carbon Dioxide 22 mmol/L (22-30); Chloride 106 mmol/L (98-107); Direct Bilirubin 0.3 mg/dl (0.0-0.4); Glucose 99 mg/dl (70-99); HDL Cholesterol 33 mg/dl; LDL Cholesterol, Calculated 45 mg/dl; Potassium 4.6 mmol/L (3.5-5.1); Sodium 141 mmol/L (135-145); Total Bilirubin 1.2 mg/dl (0.2-1.3); Total Cholesterol 105 mg/dl (50-199); Total Protein 6.7 g/dl (6.3-8.2); Triglyceride 138 mg/dl (10-149); Very Low Density Lipoprotein 27 mg/dl (0-30); eGFR > 60.00
[2024-12-23 09:23] LABS: Free T3 4.61 pg/ml (2.77-5.27); Free T4 2.12 ng/dl (0.78-2.19)
[2024-12-23 09:36] LABS: PSA, Total - Screen 1.39 ng/ml (0.0-4.0); TSH 0.03 uIU/ml (0.47-4.68)
[2024-12-23 15:37] LABS: Iron 112 ug/dl (49-181)
[2024-12-23 16:01] LABS: Percent Saturation 47 % (20-50); Total Iron Binding Capacity 235 ug/dl (261-462)
[2024-12-24 15:45] LABS: Thyroglobulin Antibodies <1.5 IU/mL (0.0-4.0); Thyroid Peroxidase Ab (TPO) <0.3 IU/mL (0.0-9.0)
[2024-12-24 16:57] LABS: Total T3 (Sendout) 157 ng/dL (80-200)
[2024-12-24 23:51] LABS: Thyroid Stim. Immunoglobulin <0.10 IU/L (<=0.54)
[2024-12-25 14:30] LABS: Aldosterone, Serum 16.3 ng/dL; Aldosterone/Renin Activ Ratio 1.2 ratio (<=25.0); Renin Activity Results 14.1 ng/mL/hr
== END ==
LOC: REG 07:12
PROVIDERS: ATTENDING PHYSICIAN Physician Assistant; FAMILY PHYSICIAN Nurse Practitioner Family
DX: E05.90 Thyrotoxicosis, unspecified without thyrotoxic crisis or storm (principal); Z00.01 Encounter for general adult medical examination with abnormal findings; I10 Essential (primary) hypertension; Z12.11 Encounter for screening for malignant neoplasm of colon; Z12.5 Encounter for screening for malignant neoplasm of prostate; K76.0 Fatty (change of) liver, not elsewhere classified; N40.0 Benign prostatic hyperplasia without lower urinary tract symptoms; E66.9 Obesity, unspecified; Z85.3 Personal history of malignant neoplasm of breast; N25.81 Secondary hyperparathyroidism of renal origin; Z98.890 Other specified postprocedural states; N18.32 Chronic kidney disease, stage 3b; K22.719 Barrett's esophagus with dysplasia, unspecified; H34.239 Retinal artery branch occlusion, unspecified eye; R79.89 Other specified abnormal findings of blood chemistry
CPT/HCPCS: 36415; 80053; 80061; 82088; 82248; 82728; 83540; 83550; 83835; 84244; 84439; 84443; 84445; 84480; 84481; 85025; 86376; 86800; G0103

== ENCOUNTER → 2025-01-03 07:24 | Outpatient (REF) | payer OTHER, SELFPAY ==
[2025-01-03 08:37] LABS: Hemoglobin 13.2 g/dL (13.0-18.0); Mean Corp Hgb Conc. 35.7 g/dL (33.0-37.0); Mean Corpuscular Hgb 31.5 pg (27.0-31.0); Mean Corpuscular Volume 88.3 fL (80.0-94.0); Mean Platelet Volume 9.8 fL (7.4-10.4); Platelet Count 205 10^3/uL (130-400); Red Blood Cell Count 4.19 10^6/uL (4.70-6.10); Red Cell Dist. Width 12.9 % (11.5-14.5)
[2025-01-03 09:05] LABS: ALT (SGPT) 15 U/L (0-50); AST (SGOT) 20 U/L (17-59); Albumin 4.3 g/dl (3.5-5.0); Alkaline Phosphatase 91 U/L (38-126); Blood Urea Nitrogen 19 mg/dl (9-20); Calcium 9.3 mg/dl (8.4-10.2); Carbon Dioxide 19 mmol/L (22-30); Chloride 111 mmol/L (98-107); Glucose 103 mg/dl (70-99); Potassium 4.6 mmol/L (3.5-5.1); Sodium 141 mmol/L (135-145); Total Bilirubin 1.1 mg/dl (0.2-1.3); Total Protein 7.1 g/dl (6.3-8.2); eGFR 56.93
[2025-01-03 09:21] LABS: Free T3 3.39 pg/ml (2.77-5.27); Free T4 1.78 ng/dl (0.78-2.19)
[2025-01-03 09:28] LABS: Cortisol, Random 9.9 ug/dl
[2025-01-03 10:10] LABS: TSH 0.14 uIU/ml (0.47-4.68)
[2025-01-04 20:26] LABS: Thyroglobulin 26.2 ng/mL (1.3-31.8); Thyroglobulin Antibodies <1.5 IU/mL (0.0-4.0); Thyroid Peroxidase Ab (TPO) <0.3 IU/mL (0.0-9.0)
[2025-01-04 21:28] LABS: Adrenocorticotropic Hormone 10.6 pg/mL (7.2-63.3)
[2025-01-05 00:57] LABS: TSH Receptor Antibody <1.10 IU/L (<=1.75)
== END ==
LOC: REG 07:24
PROVIDERS: ATTENDING PHYSICIAN Physician Assistant; FAMILY PHYSICIAN Nurse Practitioner Family
DX: E05.90 Thyrotoxicosis, unspecified without thyrotoxic crisis or storm (principal)
CPT/HCPCS: 36415; 80053; 82024; 82533; 83520; 84432; 84439; 84443; 84481; 85027; 86376; 86800

== ENCOUNTER → 2025-03-01 07:22 | Outpatient (REF) | payer OTHER, SELFPAY ==
[2025-03-01 08:17] LABS: Hematocrit 36.1 % (39.0-52.0); Hemoglobin 12.2 g/dL (13.0-18.0); Mean Corp Hgb Conc. 33.8 g/dL (33.0-37.0); Mean Corpuscular Volume 93.5 fL (80.0-94.0); Nucleated Red Blood Cells % 0 % (-); Platelet Count 222 10^3/uL (130-400); Red Cell Dist. Width 13.0 % (11.5-14.5)
[2025-03-01 09:07] LABS: ALT (SGPT) < 10 U/L (0-50); AST (SGOT) 14 U/L (17-59); Albumin 4.0 g/dl (3.5-5.0); Alkaline Phosphatase 90 U/L (38-126); Blood Urea Nitrogen 14 mg/dl (9-20); Calcium 9.1 mg/dl (8.4-10.2); Carbon Dioxide 25 mmol/L (22-30); Chloride 107 mmol/L (98-107); Glucose 98 mg/dl (70-99); Potassium 4.3 mmol/L (3.5-5.1); Sodium 139 mmol/L (135-145); Total Protein 6.7 g/dl (6.3-8.2); eGFR > 60.00
[2025-03-01 09:14] LABS: Free T3 3.80 pg/ml (2.77-5.27)
[2025-03-01 09:28] LABS: Cortisol, Random 10.3 ug/dl; TSH 2.57 uIU/ml (0.47-4.68)
[2025-03-04 02:13] LABS: Total T3 (Sendout) 135 ng/dL (80-200)
== END ==
LOC: REG 07:22
PROVIDERS: ATTENDING PHYSICIAN Physician Assistant
DX: E05.90 Thyrotoxicosis, unspecified without thyrotoxic crisis or storm (principal)
CPT/HCPCS: 36415; 80053; 82024; 82533; 84439; 84443; 84480; 84481; 85025

== ENCOUNTER → 2025-03-21 10:54 | Outpatient (REF) | payer OTHER, SELFPAY | LOC: HWRAD 10:54 | PROVIDERS: ATTENDING PHYSICIAN Physician Assistant; FAMILY PHYSICIAN Nurse Practitioner Family | DX: E05.90 Thyrotoxicosis, unspecified without thyrotoxic crisis or storm (principal) | CPT/HCPCS: 76536 ==

== ENCOUNTER → 2025-05-19 07:48 | Outpatient (REF) | payer OTHER, SELFPAY ==
[2025-05-19 08:55] LABS: Hematocrit 40.0 % (39.0-52.0); Hemoglobin 13.5 g/dL (13.0-18.0); Mean Corp Hgb Conc. 33.8 g/dL (33.0-37.0); Mean Corpuscular Volume 94.6 fL (80.0-94.0); Nucleated Red Blood Cells % 0 % (-); Platelet Count 210 10^3/uL (130-400); Red Cell Dist. Width 12.8 % (11.5-14.5)
[2025-05-19 09:33] LABS: ALT (SGPT) 25 U/L (0-50); AST (SGOT) 28 U/L (17-59); Albumin 4.3 g/dl (3.5-5.0); Alkaline Phosphatase 112 U/L (38-126); Blood Urea Nitrogen 19 mg/dl (9-20); Calcium 8.8 mg/dl (8.4-10.2); Carbon Dioxide 23 mmol/L (22-30); Chloride 109 mmol/L (98-107); Glucose 99 mg/dl (70-99); HDL Cholesterol 56 mg/dl; Iron 90 ug/dl (49-181); LDL Cholesterol, Calculated 59 mg/dl; Potassium 4.5 mmol/L (3.5-5.1); Sodium 140 mmol/L (135-145); Total Protein 7.0 g/dl (6.3-8.2); Very Low Density Lipoprotein 13 mg/dl (0-30); eGFR > 60.00
[2025-05-19 09:42] LABS: Total Iron Binding Capacity 303 ug/dl (261-462)
[2025-05-19 09:47] LABS: Free T3 3.58 pg/ml (2.77-5.27)
[2025-05-19 10:00] LABS: TSH 9.91 uIU/ml (0.47-4.68)
[2025-05-19 11:12] LABS: Glycohemoglobin (HgbA1c) 5.0 % (4.0-5.6)
[2025-05-20 21:15] LABS: Total T3 (Sendout) 100 ng/dL (80-200)
== END ==
LOC: REG 07:48
PROVIDERS: ATTENDING PHYSICIAN Physician Assistant; OTHER PHYSICIAN Nurse Practitioner Family
DX: E05.90 Thyrotoxicosis, unspecified without thyrotoxic crisis or storm (principal); G93.41 Metabolic encephalopathy; E80.6 Other disorders of bilirubin metabolism; E78.5 Hyperlipidemia, unspecified; R73.01 Impaired fasting glucose; Z86.2 Personal history of diseases of the blood and blood-forming organs and certain disorders involving the immune mechanism
CPT/HCPCS: 36415; 80053; 80061; 83036; 83520; 83540; 83550; 84439; 84443; 84480; 84481; 85025